=== PATIENT | male | born 1955 | race Caucasian/White ===

== ENCOUNTER 2018-07-01 09:58 | Outpatient (CLI) | payer MEDICAID, SELFPAY ==
[2018-07-01 13:07] LABS: ALT 35 U/L (12-78); AST 23 U/L (15-37); Albumin 3.9 g/dL (3.4-5.0); Alkaline Phosphatase 80 U/L (46-116); Anion Gap 10.6 mmol/L (3-11); BUN 19 mg/dL (7-18); Bilirubin, Total 0.2 mg/dL (0.2-1.0); CO2 24.4 mmol/L (21.0-32.0); CREATININE 1.24 mg/dL (0.70-1.30); Calcium 8.6 mg/dL (8.5-10.1); Chloride 105 mmol/L (98-107); Estimated GFR 59.47 (mL/min/1.73m2); Glucose 121 mg/dL (70-100); Potassium 4.6 mmol/L (3.5-5.1); Sodium 140 mmol/L (136-145); Total Protein 6.8 g/dL (6.4-8.2); Uric Acid 6.5 mg/dL (3.5-7.2)
[2018-07-01 13:25] LABS: COMMENT (LAB VIEW ONLY) 161.15 mg/dL
[2018-07-01 14:11] LABS: Hemoglobin A1C 6.5 % (4.5-6.2)
== END 2018-07-01 10:18 ==
PROVIDERS: PCP Family Medicine; Visit Provider Family Medicine
DX: E11.9 Type 2 diabetes mellitus without complications (principal); M25.50 Pain in unspecified joint
CPT/HCPCS: 36415; 80053; 82043; 82570; 83036; 84550

== ENCOUNTER 2018-12-30 10:17 | Outpatient (CLI) | payer MEDICAID, SELFPAY ==
[2018-12-30 12:32] LABS: ALT 43 U/L (12-78); AST 37 U/L (15-37); Albumin 4.3 g/dL (3.4-5.0); Alkaline Phosphatase 86 U/L (46-116); Anion Gap 10.3 mmol/L (3-11); BUN 16 mg/dL (7-18); Bilirubin, Total 0.4 mg/dL (0.2-1.0); CO2 26.7 mmol/L (21.0-32.0); CREATININE 1.32 mg/dL (0.70-1.30); Calcium 8.7 mg/dL (8.5-10.1); Chloride 103 mmol/L (98-107); Cholesterol 152 mg/dL (50-200); Estimated GFR 55.14 (mL/min/1.73m2); Glucose 129 mg/dL (70-100); HDL Cholesterol 39 mg/dL (40-60); LDL CHOLESTEROL 89 mg/dL (<100); Potassium 4.8 mmol/L (3.5-5.1); Sodium 140 mmol/L (136-145); Total Protein 7.4 g/dL (6.4-8.2); Triglyceride 116 mg/dL (30-150)
[2018-12-30 12:38] LABS: Hemoglobin A1C 6.4 % (4.5-6.2)
== END 2018-12-30 10:37 ==
PROVIDERS: PCP Family Medicine; Visit Provider Family Medicine
DX: E11.9 Type 2 diabetes mellitus without complications (principal); E79.0 Hyperuricemia without signs of inflammatory arthritis and tophaceous disease
CPT/HCPCS: 36415; 80053; 80061; 83721; 83036; 84550

== ENCOUNTER 2019-07-05 11:45 | Outpatient (CLI) | payer MEDICAID, SELFPAY ==
[2019-07-05 13:36] LABS: Anion Gap 11.3 mmol/L (3-11); BUN 13 mg/dL (7-18); CO2 24.7 mmol/L (21.0-32.0); CREATININE 1.27 mg/dL (0.70-1.30); Chloride 103 mmol/L (98-107); Estimated GFR 57.65 (mL/min/1.73m2); Glucose 127 mg/dL (70-100); Potassium 4.9 mmol/L (3.5-5.1); Sodium 139 mmol/L (136-145); Uric Acid 5.3 mg/dL (3.5-7.2)
[2019-07-05 13:40] LABS: COMMENT (LAB VIEW ONLY) 194.45 mg/dL; Microalb ug/mg Crea 10.2 ug/mg Cr
[2019-07-05 14:40] LABS: Hemoglobin A1C 6.3 % (4.5-6.2)
== END 2019-07-05 12:05 ==
PROVIDERS: PCP Family Medicine; Visit Provider Family Medicine
DX: E11.9 Type 2 diabetes mellitus without complications (principal); M10.9 Gout, unspecified
CPT/HCPCS: 36415; 80048; 82043; 82570; 83036; 84550

== ENCOUNTER 2020-12-20 16:49 | Inpatient (IN) | payer MEDICAID, SELFPAY ==
[2020-12-20] VITALS (35 sets, daily range): BP systolic 126–175; BP diastolic 64–87; PULSE 66–81; RESP 10–29; TEMP 36.1–37.1; O2SAT 90–96
--- NOTE | 2020-12-20 17:11 | ED.GENADUL_ITS ---
Discharge Plan Discharge Details Chief Complaint: SOB Admit Date/Time: 12/20/20 20:54 Admit Provider: Jordan Borrego Attending Provider: Jordan Borrego Primary Care Provider: Valeri Gonzalez ED Provider: Sayra Salas Medical Decision Making Patient is a pleasant 65-year-old male presenting today with chief complaint of shortness of breath. Patient was diagnosed with Covid on 12/06/2020 after being exposed to a known positive friend. He states that he initially he was having a cough and sore throat. States sore throat subsided. However, over the past 3 days has become increasingly short of breath. States that he does experience cough with exertion. Shortness of breath is worsened with exertion. Denies any chest pain. Denies any GI upset. No fevers. Patient is not a smoker. No known pulmonary disease. On exam, paitent appears nontoxic. O2 at 87% after ambulation. Was able to get up to 90% when at rest. He has crackles in the right upper lobe. He does not appear to be in any respiratory distress. Normal cardiac exam. No LE edema, no calf tenderness. At this time, concerned for worsening COVID, now requiring 2L NC O2. Also concidered PE as source of worsening symptoms. Will obtain labs and imaging. Patient will be given 6mg IV dexamethasone. jWill hold off on further interven tion given how late his presentation is in his COVID course. CXR reviewed by radiologist: FINDINGS: Lungs: There are hazy peripheral ground-glass opacities bilaterally. Pulmonary lauren: Unremarkable contours. Pleural spaces: No pleural effusion. No pneumothorax. Heart/Mediastinum: Unremarkable contours. No cardiomegaly. Vasculature: Aorta is mildly tortuous. Bones/joints: Unremarkable. Intraperitoneal space: Visualized upper abdomen is unremarkable. IMPRESSION: Peripheral ground-glass opacities consistent patient's history of COVID-19. Labs reviewed. No leukocytosis, stable H&H. Ferritin 618, CRP 9.11. Troponin WNL. D-dimer elevated at 1218, will obtain CT for PE protocol. FINDINGS: Pulmonary arteries: No filling defect in the pulmonary arterial tree. Aorta: There is no aortic aneurysm or dissection. Lungs: There is significant bilateral multilobar regions of relatively peripheral ground-glass disease with underlying interlobular septal thickening (crazy paving) sign. There is no significant consolidative component. The central airways are patent. Pleural spaces: No pneumothorax. No pleural effusion. Heart: No pericardial effusion. Lymph nodes: There are mildly enlarged paratracheal and prevascular nodes which may be reactive in origin. No hilar or axillary adenopathy Liver: There is diffuse fatty infiltration liver. Bones/joints: No significant bony or joint space abnormality. Soft tissues: Extrathoracic soft tissues are unremarkable. IMPRESSION: 1. Extensive ground-glass disease consistent with patient's history of COVID-19. 2. No PE. Discussed these findings with tehpatient. Plan for admission for worsening COVID requiring O2 at this time. Discussed case with Dr. Borrego who agrees to admission. All of the patients questions and concerns were addressed, he is ron greement with this plan. Spoke with patient's brother over the phone. HPI General Mode of arrival: ambulatory . Date/Time Provider Initiated Documentation: 12/20/20 17:11 . Limitations to Documentation: no limitations . Information obtained by: patient and RN notes reviewed . History of Present Illness 65 year old M presents to the emergency department with the chief complaint of shortness of breath, COVID +, described as moderate, Quality is described as other (patient denies any pain), Patient started experiencing this day(s) (2-3) and it has been constant. Immobilization improves symptom(s), Movement worsens symptoms . Patient notes cough, fever/chills (chills) and shortness of breath; denies chest pain, headaches, nausea/vomiting, rash, syncope and weakness. Patient did receive the following treatments prior to arrival, none Related Data Home Medications Medication Instructions Recorded Confirmed indomethacin 50 mg capsule 50 mg PO BID PRN #25 cap 07/03/18 11/03/19 melatonin 5 mg tablet 5 mg PO HS #90 tab 07/08/19 11/03/19 doxylamine succinate 25 mg tablet 25 mg PO QHS PRN #30 tab 07/18/20 metformin 500 mg tablet 500 mg PO BID #180 tab-cap 08/23/20 12/20/20 rosuvastatin 10 mg tablet 10 mg PO DAILY #90 tab-cap 08/23/20 12/20/20 hydroxyzine HCl 25 mg tablet 25 mg PO QHS #30 tab 12/15/20 03/31/21 buspirone 15 mg tablet 15 - 30 mg PO BID #270 tab 10/04/20 12/20/20 paroxetine HCl 40 mg tablet 40 mg PO BID #180 tab-cap 10/09/20 12/20/20 risperidone 0.5 mg tablet 0.5 mg PO QHS #90 tab 10/09/20 12/20/20 Previous Rx's Medication Instructions Recorded indomethacin 50 mg capsule 50 mg PO BID PRN #25 cap 07/03/18 melatonin 5 mg tablet 5 mg PO HS #90 tab 07/08/19 doxylamine succinate 25 mg tablet 25 mg PO QHS PRN #30 tab 07/18/20 metformin 500 mg tablet 500 mg PO BID #180 tab-cap 08/23/20 rosuvastatin 10 mg tablet 10 mg PO DAILY #90 tab-cap 08/23/20 hydroxyzine HCl 25 mg tablet 25 mg PO QHS #30 tab 09/05/20 buspirone 15 mg tablet 15 - 30 mg PO BID #270 tab 10/04/20 paroxetine HCl 40 mg tablet 40 mg PO BID #180 tab-cap 10/09/20 risperidone 0.5 mg tablet 0.5 mg PO QHS #90 tab 10/09/20 Allergies Allergy/AdvReac Type Severity Reaction Status Date / Time No Known Allergies Allergy Verified 12/20/20 17:10 General Stated Complaint: SOB ROMMEL: 2 Review of Systems Constitutional Constitutional: Reports as per HPI, Denies chills, Denies fever(s), Denies headache(s), Denies lethargy and Denies poor appetite Eyes Eyes: Denies change in vision ENT Ears, Nose, Mouth, and Throat: Denies dysphagia, Denies dizziness, Denies headache(s), Denies sore throat and Reports other (change in taste/smell) Cardiovascular Cardiovascular: Reports as per HPI, Denies chest pain, Denies chest pain at r est, Denies chest pain with activity, Denies leg edema, Denies lightheadedness, Denies radiating jaw, neck or arm pain, Reports dyspnea and Reports dyspnea on exertion Respiratory Respiratory: Reports as per HPI, Denies chest congestion, Denies cough, Denies pain on inspiration, Denies pain with cough, Reports dyspnea, Reports dyspnea on exertion and Denies wheezing Gastrointestinal Gastrointestinal: Reports as per HPI, Denies abdominal pain, Denies dysphagia, Denies diarrhea, Denies nausea and Denies vomiting Genitourinary Genitourinary: Denies system reviewed and no additional complaints, except as documented (denies change in urinary habits) Musculoskeletal Musculoskeletal: Reports as per HPI and Denies back pain Integumentary/Breasts Skin/Breast: Reports as per HPI and Denies rash Neurologic Neurologic: Reports as per HPI, Denies dizziness and Denies headache(s) Allergic/Immunologic Allergic/Immunologic: Denies wheezing [facility] Medical History Gout Family History (Updated 07/06/19 @ 10:52 by Arsh Rodrigues) Mother , age 73? Essential hypertension Diabetes Heart disease Hyperlipidemia Father , age 55? Melanoma Brother Hyperlipidemia Diabetes Maternal Grandfather No problems noted. Maternal Grandmother No problems noted. Paternal Grandmother No problems noted. Sister Diabetes Hyperlipidemia Paternal Grandfather No problems noted. Social History Smoking/Tobacco Use Status: Never Smoking risk assessment performed?: Yes Alcohol Intake: current Alcohol Intake frequency: a few times a week Alcohol type: beer Drug use: Never Substance use type: does not use Caregiver/Support person: No Household members: none Housing: house Communication Needs: None Do you need help understanding health information?: Never Pets and animals: Yes Pets and animals: dog(s) Sexually active: Yes Do you think of yourself as: straight/heterosexual Current gender identity: male What is your relationship status?: never How often do you talk on the phone with friends or family?: three or more times per week How often do you get together with friends or relatives?: three or more times per week How often do you attend oriental orthodox or buddhism services?: 1-3 times per year Do you belong to any clubs or organized social groups?: no Panel score (0-1 are the most socially isolated patients): 1 What type of physical activity do you participate in: other Details: garage work Duration: > 90 minutes/day Frequency: 5-6 times per week Becka/Bahai: Yarsanism Special becka needs: No Seatbelt use: always Helmet use: Yes Helmet use: always Drive intox or ride w/intox 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 Do you feel safe at home: Yes Do you feel safe in your relationship?: Yes Exam Const General: cooperative, healthy appearing, comfortable, no acute distress and well developed Nutritional Appearance: average body habitus and well nourished Orientation: alert, awake and oriented x3 [facility] Head: normal to inspection Ears: hearing grossly normal bilaterally Mouth: moist mucous membranes Chest Chest: normal inspection of the chest, normal palpation of entire chest wall and no crepitus Resp Effort & Inspection: normal respiratory effort, able to speak in complete sentences and no respiratory distress Auscultation: crackles on the right in the upper lung reveles, no rales, no rhonchi and no wheezes Cardio Rate: regular rate Rhythm: regular rhythm Heart Sounds: S1 normal and S2 normal GI Inspection: normal to inspection, no edema and non-distended Palpation: soft, no hepatosplenomegaly, not firm, no guarding, not rigid and nontender Auscultation: normal bowel sounds Back/Spine/Pelvis Thoracic/Lumbar Spine: thoracic and lumbar spine normal to inspection Skin General skin exam: no rashes or lesions noted Trauma: no lacerations or abrasions Neuro General: patient alert, patient awake and patient oriented x3 Cognition: normal cognition Speech: speech normal Gait: normal gait Extrem General: normal to inspection, capillary refill normal, no pedal edema, no calf tenderness and normal gait Psych Appearance: grossly normal and well kempt Mental Status: mental status grossly normal Speech and Movement: speech and movement normal Course Vital Signs Vital signs: Vital Signs Temperature 36.3 C L 12/20/20 17:06 Pulse 80 12/20/20 17:06 Respiratory Rate 20 12/20/20 17:06 Blood Pressure 175/83 H 12/20/20 17:06 Pulse Oximetry 90 L 12/20/20 17:06 Temperature 36.3 C L 12/20/20 17:06 Temperature Source Skin 12/20/20 17:06 Pulse 80 12/20/20 17:06 Respiratory Rate 20 12/20/20 17:06 Respiratory Effort 12/20/20 17:08 Blood Pressure 175/83 H 12/20/20 17:06 Blood Pressure Position Supine 12/20/20 17:06 Pulse Oximetry 90 L 12/20/20 17:06 Oxygen Delivery Method Room Air 12/20/20 17:06 Oxygen Flow Rate 0 12/20/20 17:06 Pain Level 0 12/20/20 17:06
[2020-12-20] MEDS: Normal Saline Flush 10 ML SYR IVP ×2 (17:25→19:39)
[2020-12-20] MEDS: Dexamethasone 4 MG/ML VIAL 6 MG IVP (17:34)
[2020-12-20 17:36] LABS: Abs Immature Grans 0.04 10^3/uL (0.0-0.06); Absolute Basophil Count 0.01 10^3/uL (0.0-0.2); Absolute Eosinophil Count 0.03 10^3/uL (0.0-0.7); Absolute Monocyte Count 0.36 10^3/uL (0.1-0.8); Absolute Neutrophil Count 5.92 10^3/uL (1.2-6.7); Basophils % 0.1; Eosinophils % 0.4; HCT 39.7 % (40.0-50.0); HGB 13.5 g/dL (13.5-17.5); Immature Grans % 0.6; Lymphocytes % 7.3; MCH 30.5 pg (27.0-33.0); MCV 89.6 fL (80-95); MPV 9.6 fL (8.0-11.0); Monocytes % 5.2; Neutrophils % 86.4; Nucleated RBC 0 %; Platelet Count 264 10^3/uL (130-400); RBC 4.43 10^6/uL (4.36-5.78); RDW 12.4 % (11.8-14.1); WBC 6.86 10^3/uL (4.4-10.8)
[2020-12-20 17:52] LABS: PTT Activated 25.9 sec (21.0-27.5)
[2020-12-20 18:13] LABS: D-Dimer 1218 ng/mlFEU (<500)
--- NOTE | 2020-12-20 18:15 | DI.RAD_ITS ---
EXAM: XR PORTABLE CHEST AP CLINICAL HISTORY: SOB, known COVID +. TECHNIQUE: 2D digital imaging was performed. COMPARISON: No exams were available for comparison FINDINGS: Heart size upper normal mediastinum is not widened. There are patchy bilateral infiltrates. No obvi ous pleural effusions. No pneumothorax. IMPRESSION: Bilateral infiltrates. No pleural effusions. Recommend testing for Covid-19 DATA REPOSITORY: RADIATION DOSE DELIVERED: All CT scans at this facility use at least one of these dose optimization techniques: automated exposure control; mA and/or kV adjustment per patient size (includes targeted e xams where dose is matched to clinical indication); or iterative reconstruction.
--- NOTE | 2020-12-20 18:17 | DI.CT_ITS ---
EXAM: CT CHEST PE CTA CLINICAL HISTORY: SOB, elevated d-dimer, COVID+. TECHNIQUE: Imaging Protocol: CT angiography of the chest was performed using pulmonary embolus arturo col. Multi planar reconstructions were performed. CONTRAST MATERIAL: Intravenous: Omnipaque 350 Contrast volume: 100 cc COMPARISON: No exams were available for comparison FINDINGS: CHEST: PULMONARY ARTERIES: There are no intraluminal filling defects to suggest acute pulmonary emboli. LUNGS: There are extensive bilateral ground-glass infiltrates consistent with the apparent known diag nosis of Covid-19.. There are no pleural effusions. MEDIASTINUM: There is no hilar nor mediastinal adenopathy. Visualized thyroid unremarkable. CARDIAC: Heart size upper normal. There is no pericardial effusioncaliber of the thoracic aorta is w ithin normal limits. There is no evidence of shift of the interventricular septum. PARTIALLY VISUALIZED UPPERMOST ABDOMEN: Hepatic steatosis and hepatomegaly noted. OSSEOUS: No significant osseous lesions.. IMPRESSION: 1. Extensive bilateral ground-glass infiltrates, consistent with apparent known history of Covid-19.N o pleural effusions. No prominent intrathoracic adenopathy. 2. No evidence of pulmonary embolus. 3. Hepatic steatosis incidentally noted. RADIATION DOSE DELIVERED: LINK-TO-SR Total DLP DATA REPOSITORY: All CT scans at this facility are submitted to the National Radiology Data Registry (NRDR) Dose Index Registry (DIR) with the [employer] (ACR). RADIATION OPTIMIZATION: All CT scans at this facility use at least one of these dose optimization te chniques: automated exposure control; mA and/or kV adjustment per patient size (includes targeted exa ms where dose is matched to clinical indication); or iterative reconstruction.
--- NOTE | 2020-12-20 18:26 | DI.VRAD_ITS ---
PROCEDURE INFORMATION: Exam: XR Chest Exam date and time: 12/20/2020 5:14 PM Age: 65 years old Clinical indication: Other: SOB, known covid+ TECHNIQUE: Imaging protocol: XR of the chest Views: 1 view. Total images: 1 COMPARISON: No relevant prior studies available. FINDINGS: Lungs: There are hazy peripheral ground-glass opacities bilaterally. Pulmonary lauren: Unremarkable contours. Pleural spaces: No pleural effusion. No pneumothorax. Heart/Mediastinum: Unremarkable contours. No cardiomegaly. Vasculature: Aorta is mildly tortuous. Bones/joints: Unremarkable. Intraperitoneal space: Visualized upper abdomen is unremarkable. IMPRESSION: Peripheral ground-glass opacities consistent patient's history of COVID-19. Dictated and Authenticated by: Angel Alonzo MD. Ordering:SARAH Colbert MD
[2020-12-20] MEDS: Lactated Ringers 500 ML IV (18:42)
[2020-12-20 18:51] LABS: ALT 30 U/L (16-63); AST 36 U/L (15-37); Albumin 3.2 g/dL (3.4-5.0); Alkaline Phosphatase 113 U/L (46-116); BUN 19 mg/dL (7-18); Bilirubin, Total 0.5 mg/dL (0.2-1.0); C-Reactive Protein 9.11 mg/dL (0.0-0.3); CREATININE 1.3 mg/dL (0.70-1.30); Calcium 8.4 mg/dL (8.5-10.1); Chloride 100 mmol/L (98-107); Creatine Kinase 202 U/L (39-308); Estimated GFR 55.75 (mL/min/1.73m2); Glucose 127 mg/dL (74-106); Magnesium 2.2 mg/dL (1.8-2.4); NT-proBNP 38 pg/mL (<300); Potassium 3.9 mmol/L (3.5-5.1); Sodium 136 mmol/L (136-145); Total Protein 7.7 g/dL (6.4-8.2); Troponin I < 0.05 ng/mL (<0.06)
[2020-12-20 19:14] LABS: Ferritin 618 ng/mL (26-388)
[2020-12-20] MEDS: Omnipaque 350 MG/ML 100 ML BTL IJ (19:37)
[2020-12-20] MEDS: Normal Saline - Diluent 50 ML VIAL IV (19:39)
--- NOTE | 2020-12-20 21:00 | DI.VRAD_ITS ---
PROCEDURE INFORMATION: Exam: CT Angiography Chest With Contrast Exam date and time: 12/20/2020 7:40 PM Age: 65 years old Clinical indication: Other: SOB, elevated d-dimer, covid+ TECHNIQUE: Imaging protocol: Computed tomographic angiography of the chest with contrast. 3D rendering (Not supervised by radiologist): MIP and/or 3D reconstructed images were created by the technologist. Total images: 1659 Radiation optimization: All CT scans at this facility use at least one of these dose optimization techniques: automated exposure control; mA and/or kV adjustment per patient size (includes targeted exams where dose is matched to clinical indication); or iterative reconstruction. Contrast material: OMNIPAQUE 350; Contrast volume: 100 ml; Contrast route: INTRAVENOUS (IV); COMPARISON: CR XR PORTABLE CHEST AP 12/20/2020 6:11 PM FINDINGS: Pulmonary arteries: No filling defect in the pulmonary arterial tree. Aorta: There is no aortic aneurysm or dissection. Lungs: There is significant bilateral multilobar regions of relatively peripheral ground-glass disease with underlying interlobular septal thickening (crazy paving) sign. There is no significant consolidative component. The central airways are patent. Pleural spaces: No pneumothorax. No pleural effusion. Heart: No pericardial effusion. Lymph nodes: There are mildly enlarged paratracheal and prevascular nodes which may be reactive in origin. No hilar or axillary adenopathy. Liver: There is diffuse fatty infiltration liver. Bones/joints: No significant bony or joint space abnormality. Soft tissues: Extrathoracic soft tissues are unremarkable. IMPRESSION: 1. Extensive ground-glass disease consistent with patient's history of COVID-19. 2. No PE. Dictated and Authenticated by: Angel Alonzo MD. Ordering:SARAH Colbert MD
--- NOTE | 2020-12-20 21:00 | NUR.NOTE ---
Assumed care of pt. report from gabrielle. awaiting bed placement
--- NOTE | 2020-12-20 21:09 | HPE_ITS ---
Date of service: 12/20/20 Time of Service: 21:09 Assessment and Plan Assessment and plan (1) Diabetes mellitus: Status: Acute Assessment and plan: Hold home metformin; has received IV contrast for CTA chest. Monitor glucose ACHS. SS insulin correction dosage. (2) Hyperlipidemia: Status: Acute Assessment and plan: Cont home statin. (3) Overweight: Status: Acute Assessment and plan: Places him at higher risk for COVID complications. (4) Obsessive compulsive disorder: Status: Acute Assessment and plan: Cont Buspar and Risperidol. (5) COVID-19: Status: Acute Assessment and plan: Dxd on 12/06/2020 with 3 days of worsening symptoms. + PNA on CT consistent with COVID-19. Dexamethasone 6 mg po daily. Remdesivir 200 mg IV now and then 100mg daily. Monitor O2 saturations. COVID-19 precautions. AC with SQ heparin. History of Present Illness History of Present Illness Chief Complaint: Shortness of breath Narrative: This is a 65 yo male with a h/o Covid respiratory infection diagnosed on 12/06/2020, OCD, HLD, DM2, overweight. He endorsed his Covid exposure was to a known positive friend. His initial symptomology was a cough and sore throat. Over the 3 days prior to admission he endorses increased shortness of breath; worsened with exertion. Cough with exertion. No F/C, CP/palpitations, calf pain. No N/V/abd pain. His RA O2 saturations were 94-95%. CT chest was negative for pulmonary embolism, positive for bilateral multilobar regions of relatively peripheral ground-glass disease with underlying interlobular septal thickening. CBC negative other than a lymphopenia. Lytes normal. BUN 19, creatinine 1.3. Glucose 127. LFT's normal. Ferritin high at 618. CRP high at 9.11. BNP normal. UA negtaive. Dexamethasone 6mg po daily initiated in the ED. Review of Systems All systems reviewed & are unremarkable except as noted in HPI and below PFSH Medical History (Updated 12/20/20 @ 21:20 by Jordan Borrego MD) Gout Family History (Updated 07/06/19 @ 10:52 by Arsh Rodrigues) Mother , age 73? Essential hypertension Diabetes Heart disease Hyperlipidemia Father , age 55? Melanoma Brother Hyperlipidemia Diabetes Maternal Grandfather No problems noted. Maternal Grandmother No problems noted. Paternal Grandmother No problems noted. Sister Diabetes Hyperlipidemia Paternal Grandfather No problems noted. Social History (Updated 07/06/19 @ 10:50 by Arsh Rodrigues) Smoking/Tobacco Use Status: Never Smoking risk assessment performed?: Yes Alcohol Intake: current Alcohol Intake frequency: a few times a week Alcohol type: beer Drug use: Never Substance use type: does not use Caregiver/Support person: No Household members: none Housing: house Communication Needs: None Do you need help understanding health information?: Never Pets and animals: Yes Pets and animals: dog(s) Sexually active: Yes Do you think of yourself as: straight/heterosexual Current gender identity: male What is your relationship status?: never How often do you talk on the phone with friends or family?: three or more times per week How often do you get together with friends or relatives?: three or more times per week How often do you attend christian or bahai services?: 1-3 times per year Do you belong to any clubs or organized social groups?: no Panel score (0-1 are the most socially isolated patients): 1 What type of physical activity do you participate in: other Details: garage work Duration: > 90 minutes/day Frequency: 5-6 times per week Becka/Worship: Yarsanism Special becka needs: No Seatbelt use: always Helmet use: Yes Helmet use: always Drive intox or ride w/intox 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 Do you feel safe at home: Yes Do you feel safe in your relationship?: Yes Meds Home Medications and Allergies Allergies Allergy/AdvReac Type Severity Reaction Status Date / Time No Known Allergies Allergy Verified 12/20/20 17:10 Home Medications Medication Instructions Recorded Confirmed Type indomethacin 50 mg capsule 50 mg PO BID PRN #25 cap 07/03/18 11/03/19 Rx melatonin 5 mg tablet 5 mg PO HS #90 tab 07/08/19 11/03/19 Rx doxylamine succinate 25 mg tablet 25 mg PO QHS PRN #30 tab 07/18/20 Rx metformin 500 mg tablet 500 mg PO BID #180 tab-cap 08/23/20 12/20/20 Rx rosuvastatin 10 mg tablet 10 mg PO DAILY #90 tab-cap 08/23/20 12/20/20 Rx hydroxyzine HCl 25 mg tablet 25 mg PO QHS #30 tab 09/05/20 12/20/20 Rx buspirone 15 mg tablet 15 - 30 mg PO BID #270 tab 10/04/20 12/20/20 Rx paroxetine HCl 40 mg tablet 40 mg PO BID #180 tab-cap 10/09/20 12/20/20 Rx risperidone 0.5 mg tablet 0.5 mg PO QHS #90 tab 10/09/20 12/20/20 Rx Exam Const General: cooperative and no acute distress Nutritional Appearance: overweight Orientation: alert and oriented x3 Eyes Sclera: sclerae normal Pupils: PERRL Resp Effort & Inspection: normal respiratory effort and able to speak in complete sentences Auscultation: clear to auscultation bilaterally Cardio Rate: regular rate Rhythm: regular rhythm Heart Sounds: S1 normal and S2 normal GI Palpation: soft and nontender Skin General skin exam: no rashes or lesions noted Extrem General: no pedal edema and no calf tenderness Psych Appearance: grossly normal Speech and Movement: speech and movement normal Affect: normal affect Results Labs Result diagrams: 12/20/20 17:20 12/20/20 18:20 Labs: Laboratory Results - last 24 hr 12/20/20 12/20/20 12/20/20 17:20 17:20 18:20 WBC 6.86 RBC 4.43 Hgb 13.5 Hct 39.7 L MCV 89.6 MCH 30.5 MCHC 34.0 RDW 12.4 Plt Count 264 MPV 9.6 Immature Gran % 0.6 Neutrophils % 86.4 Lymphocytes % 7.3 Monocytes % 5.2 Eosinophils % 0.4 Basophils % 0.1 Nucleated RBC % 0 Absolute Neutrophils 5.92 Absolute Lymphocytes 0.50 L Absolute Monocytes 0.36 Absolute Eosinophils 0.03 Absolute Basophils 0.01 PT 10.0 INR 1.0 APTT 25.9 D-Dimer 1218 H Sodium 136 Potassium 3.9 Chloride 100 Carbon Dioxide 23.0 Anion Gap 13.0 H BUN 19 H Creatinine 1.3 Estimated GFR/1.73 m2 55.75 Glucose 127 H Calcium 8.4 L Magnesium 2.2 Ferritin 618 H Total Bilirubin 0.5 AST 36 ALT 30 Alkaline Phosphatase 113 Creatine Kinase 202 Troponin I < 0.05 C-Reactive Protein 9.11 H NT-Pro-B Natriuret Pep 38 Total Protein 7.7 Albumin 3.2 L Last Vital Signs Temp 36.1 C L 12/20/20 20:33 Pulse 75 12/20/20 20:32 Resp 29 H 12/20/20 20:40 BP 150/78 H 12/20/20 20:32 Pulse Ox 94 12/20/20 20:40 COVID-19 Screening Have you, or household traveled for leisure in last 14 days?: No Had IN PERSON contact w/suspected or confirmed C-19 person: No
[2020-12-20] MEDS: Acetaminophen 500 MG TAB 1000 MG PO (21:37)
--- NOTE | 2020-12-20 21:42 | NUR.NOTE ---
Tylenol a/o. lying on right side. aware he will be in ED until 2611-1412. Dr Borrego in to eval.
[2020-12-20 21:50] LABS: Hemoglobin A1C 7.4 % (<5.7)
[2020-12-20 22:48] LABS: COVID-19 PCR POSITIVE (Negative)
[2020-12-21] VITALS (35 sets, daily range): BP systolic 102–154; BP diastolic 59–95; PULSE 57–96; RESP 11–29; TEMP 35.6–35.8; O2SAT 87–96
[2020-12-21] MEDS: risperiDONE 0.5 MG TAB PO ×2 (00:12→20:50)
[2020-12-21] MEDS: Melatonin 3 MG TAB 6 MG PO (00:13)
[2020-12-21] MEDS: hydrOXYzine HCL 25 MG TAB PO ×2 (00:13→20:50)
[2020-12-21] MEDS: Heparin 5,000 UNITS/ML VIAL 5000 UNITS SC (06:02)
[2020-12-21 07:26] LABS: Abs Immature Grans 0.03 10^3/uL (0.0-0.06); HCT 39.5 % (40.0-50.0); HGB 13.4 g/dL (13.5-17.5); MCH 30.3 pg (27.0-33.0); MCHC 33.9 % (32.0-36.0); MCV 89.4 fL (80-95); MPV 9.5 fL (8.0-11.0); Nucleated RBC 0 %; Platelet Count 298 10^3/uL (130-400); RBC 4.42 10^6/uL (4.36-5.78); RDW 12.2 % (11.8-14.1); RDW-SD 40.7 fL
[2020-12-21 07:40] LABS: ALT 29 U/L (16-63); AST 30 U/L (15-37); Albumin 3.1 g/dL (3.4-5.0); Alkaline Phosphatase 112 U/L (46-116); Anion Gap 10.6 mmol/L (3-11); BUN 18 mg/dL (7-18); Bilirubin, Total 0.4 mg/dL (0.2-1.0); CO2 25.4 mmol/L (21.0-32.0); CREATININE 1.3 mg/dL (0.70-1.30); Calcium 8.8 mg/dL (8.5-10.1); Chloride 101 mmol/L (98-107); Estimated GFR 55.75 (mL/min/1.73m2); Glucose 154 mg/dL (74-106); Potassium 4.5 mmol/L (3.5-5.1); Sodium 137 mmol/L (136-145); Total Protein 7.7 g/dL (6.4-8.2)
[2020-12-21 07:53] LABS: Absolute Lymphocyte Count 0.58 10^3/uL (1.2-3.4); Absolute Monocyte Count 0.05 10^3/uL (0.1-0.8); Absolute Neutrophil Count 4.66 10^3/uL (1.2-6.7); Atypical Lymphocytes % 7; Bands % 1; Diff Comment Manual Differential; RBC Morphology Normal
--- NOTE | 2020-12-21 08:23 | PDOC.CMIN ---
- If Service Date Differs Date of service: 12/21/20 Time of Service: 08:23 Care Management Initial Assess REASON FOR HOSPITALIZATION:: COVID, Hypoxia PAST MEDICAL HISTORY/PAST SURGICAL HISTORY:: Covid-19, OCD, overweight, hyperlipidemia, DM PREVIOUS FUNCTIONAL STATUS/SOCIAL/FAMILY SUPPORTS:: Shahana resides in [place]. He has family locally and is independent at baseline. CURRENT FUNCTIONAL STATUS:: Shahana is in the ICU being treated for COVID. Plan per MD: Continue Decadron 6 mg IV daily for 10 days or until hypoxemia resolves and patient is discharged. Continue Remdesivir. Begin zinc, vitamin D, vitamin C, Pepcid. Will prescribe incentive spirometer and Acapella device. Because of the purulent sputum will order Rocephin and doxycycline. Switch heparin to enoxaparin 30 mg subcutaneously every 12 hours. Encourage proning whenever in bed. Encourage him to be up in a chair and ambulating as much as tolerated. Continuous pulse oximetry to monitor for any desaturation. As long as he is on low flow nasal cannula he can remain on medical/surgical floor status but if his hypoxemia worsens he will be made in ICU patient. ADVANCE DIRECTIVES:: None on file at [facility]. Has patient been provided with info about the portal/API?: Yes Did the patient sign up for the portal?: Yes (Previously ) CODE STATUS:: Full Code INSURANCE COVERAGE / FINANCIAL ISSUES:: [employer] CURRENT HOME/COMMUNITY SERVICES/EQUIPMENT:: No current services or equipment. PRIMARY CARE PHYSICIAN:: Valeri Gonzalez POTENTIAL DISCHARGE NEEDS:: Follow up appointment with PCP. PATIENT/FAMILY EDUCATION NEEDS:: Review discharge instructions, discuss Ask Me Three. ANTICIPATED BARRIERS TO DISCHARGE:: None identified at this time. TRANSPORTATION:: Via private vehicle with his brotherMichael. PLAN:: Shahana continues to be monitored in the ICU at this time. Anticipate when medically cleared he will return home with no new services and follow up with his PCP. He will transport via private vehicle with his brother, Michael.
[2020-12-21] MEDS: Normal Saline Flush 10 ML SYR IVP (08:24)
[2020-12-21] MEDS: Rosuvastatin 10 MG TAB PO (08:25)
[2020-12-21] MEDS: PARoxetine 20 MG TAB 40 MG PO ×2 (08:25→20:50)
[2020-12-21] MEDS: busPIRone 15 MG TAB 30 MG PO ×2 (08:25→21:11)
[2020-12-21] MEDS: Insulin Aspart 300 UNITS/3 ML PEN SC ×4 (08:26→22:24)
[2020-12-21] MEDS: REMDESIVIR 200 MG in Normal Saline 250 ML 250 MG IVPB (09:42)
[2020-12-21] MEDS: Normal Saline 500 ML 30 ML IV (09:44)
[2020-12-21] MEDS: Dexamethasone 4 MG/ML VIAL 6 MG IVP (09:46)
[2020-12-21 10:28] LABS: Procalcitonin 0.1 ng/mL
--- NOTE | 2020-12-21 11:03 | PGE_ITS ---
Date of Service Date of service: 12/21/20 Time of Service: 11:03 Assessment and Plan Assessment and plan (1) Pneumonia due to severe acute respiratory syndrome coronavirus 2 (SARS-CoV-2): Status: Acute Assessment and plan: Continue Decadron 6 mg IV daily for 10 days or until hypoxemia resolves and patient is discharged. Continue Remdesivir. Begin zinc, vitamin D, vitamin C, Pepcid. Will prescribe incentive spirometer and Acapella device. Because of the purulent sputum will order Rocephin and doxycycline. Switch heparin to enoxaparin 30 mg subcutaneously every 12 hours. Encourage proning whenever in bed. Encourage him to be up in a chair and ambulating as much as tolerated. Continuous pulse oximetry to monitor for any desaturation. As long as he is on low flow nasal cannula he can remain on medical/surgical floor status but if his hypoxemia worsens he will be made in ICU patient. (2) Diabetes mellitus: Status: Acute Assessment and plan: Hold home metformin; has received IV contrast for CTA chest. Monitor glucose ACHS. SS insulin correction dosage. (3) Hyperlipidemia: Status: Acute Assessment and plan: Hold Crestor in favor of high-dose atorvastatin. (4) Obsessive compulsive disorder: Status: Acute Assessment and plan: Cont Buspar and Risperidol. (5) Overweight: Status: Acute Assessment and plan: Places him at higher risk for COVID complications. In spite of his obesity he seems to be tolerating assuming the prone position. Subjective Subjective Interval history since last seen: 65-year-old male with history of type 2 diabetes mellitus, hyperlipidemia who is a non-smoker who was exposed to COVID-19 from a friend to his from [facility] and the patient was diagnosed on December 06, 2020 and had been in quarantine for the last 3 to 4 days prior to admission had increasing dyspnea along with a cough that was minimally productive of yellowish sputum. No associated fever or rigors. He has had loss of sense of taste and smell. His original symptoms were cough and sore throat. Denies any nausea or vomiting or abdominal pain. On presentation the emergency department his room air oxygen saturations were 94 to 95% and CT scan of the chest was negative for pulmonary embolism but was positive for bilateral multi lobar peripheral groundglass changes and interlobular septal thickening. CBC showed a lymphopenia. Electrolytes were normal and LFTs were normal but his ferritin was high at 618 and CRP was high at 9.11. He was admitted to the medical/surgical floor but was placed in the ICU as an overflow patient. He was ordered remdesivir but did not receive his remdesivir last night. He was started on Decadron and did receive 10 mg IV last night in the ER and is now on 6 mg daily. Over the course of his admission since last night he has developed hypoxemia and is required supplemental oxygen up to 4 L/min per nasal cannula. Patient is cooperative with performing proning maneuvers to enhance lung recruitment. I have ordered incentive spirometer and Acapella device. He will be started on ceftriaxone and doxycycline in addition to vitamin C, vitamin D, zinc. He was started on unfractionated heparin 5000 units subcu every 8 hours. I am going to switch this over to enoxaparin 30 mg subcu every 12 hours. His D- dimer on admission was elevated at 1218 ng/mL. He currently is tolerating assuming the prone position. I encouraged him that when he is not in bed that he could be up out of bed walking around the room or sitting up in the chair but whenever he is in bed he should try proning for at least half the time that he is in bed. The other times he can try lying on his right side or his left side but should try to avoid lying on his back. His Metformin is currently on hold and we will monitor his blood sugars before meals and at bedtime and cover with insulin sensitive sliding scale NovoLog. Exam Narrative Exam Narrative: Obese male lying in the prone position in no respiratory distress he is alert and oriented person place time circumstance. Exam is limited because of his prone position. I cannot do cardiac exam. Lungs posteriorly are clear to auscultation however auscultation was limited due to the poor quality stethoscope in the room as well as loud noise from the fans from the air exchanger. Objective Last Vital Signs Temp 35.6 C L 12/21/20 10:16 Pulse 65 12/21/20 10:00 Resp 20 12/21/20 10:00 BP 140/81 12/21/20 10:00 Pulse Ox 93 12/21/20 10:14 Laboratory Results - last 24 hr 12/20/20 12/20/20 12/20/20 17:20 17:20 17:20 WBC 6.86 RBC 4.43 Hgb 13.5 Hct 39.7 L MCV 89.6 MCH 30.5 MCHC 34.0 RDW 12.4 Plt Count 264 MPV 9.6 Immature Gran % 0.6 Neutrophils % 86.4 Band Neutrophils % Lymphocytes % 7.3 Atypical Lymphs % Monocytes % 5.2 Eosinophils % 0.4 Basophils % 0.1 Nucleated RBC % 0 Absolute Neutrophils 5.92 Absolute Lymphocytes 0.50 L Absolute Monocytes 0.36 Absolute Eosinophils 0.03 Absolute Basophils 0.01 RBC Morphology PT 10.0 INR 1.0 APTT 25.9 D-Dimer 1218 H Sodium Potassium Chloride Carbon Dioxide Anion Gap BUN Creatinine Estimated GFR/1.73 m2 Glucose Hemoglobin A1c 7.4 H Calcium Magnesium Ferritin Total Bilirubin AST ALT Alkaline Phosphatase Creatine Kinase Troponin I C-Reactive Protein NT-Pro-B Natriuret Pep Total Protein Albumin Procalcitonin COVID-19 Source SARS-CoV-2 (PCR) 12/20/20 12/20/20 12/20/20 18:20 20:11 21:32 WBC RBC Hgb Hct MCV MCH MCHC RDW Plt Count MPV Immature Gran % Neutrophils % Band Neutrophils % Lymphocytes % Atypical Lymphs % Monocytes % Eosinophils % Basophils % Nucleated RBC % Absolute Neutrophils Absolute Lymphocytes Absolute Monocytes Absolute Eosinophils Absolute Basophils RBC Morphology PT INR APTT D-Dimer Sodium 136 Potassium 3.9 Chloride 100 Carbon Dioxide 23.0 Anion Gap 13.0 H BUN 19 H Creatinine 1.3 Estimated GFR/1.73 m2 55.75 Glucose 127 H Hemoglobin A1c Calcium 8.4 L Magnesium 2.2 Ferritin 618 H Total Bilirubin 0.5 AST 36 ALT 30 Alkaline Phosphatase 113 Creatine Kinase 202 Troponin I < 0.05 Cancelled C-Reactive Protein 9.11 H NT-Pro-B Natriuret Pep 38 Total Protein 7.7 Albumin 3.2 L Procalcitonin COVID-19 Source Nasopharyx SARS-CoV-2 (PCR) Positive A* 12/21/20 12/21/20 12/21/20 06:43 06:43 06:43 WBC 5.30 RBC 4.42 Hgb 13.4 L Hct 39.5 L MCV 89.4 MCH 30.3 MCHC 33.9 RDW 12.2 Plt Count 298 MPV 9.5 Immature Gran % 0.0 Neutrophils % 87.0 Band Neutrophils % 1 Lymphocytes % 4.0 Atypical Lymphs % 7 Monocytes % 1.0 Eosinophils % 0.0 Basophils % 0.0 Nucleated RBC % 0 Absolute Neutrophils 4.66 Absolute Lymphocytes 0.58 L Absolute Monocytes 0.05 L Absolute Eosinophils 0.00 Absolute Basophils 0.00 RBC Morphology Normal PT INR APTT D-Dimer Sodium 137 Potassium 4.5 Chloride 101 Carbon Dioxide 25.4 Anion Gap 10.6 BUN 18 Creatinine 1.3 Estimated GFR/1.73 m2 55.75 Glucose 154 H Hemoglobin A1c Calcium 8.8 Magnesium Ferritin Total Bilirubin 0.4 AST 30 ALT 29 Alkaline Phosphatase 112 Creatine Kinase Troponin I C-Reactive Protein NT-Pro-B Natriuret Pep Total Protein 7.7 Albumin 3.1 L Procalcitonin 0.1 COVID-19 Source SARS-CoV-2 (PCR)
[2020-12-21] MEDS: cefTRIAXone 1 GM/50 ML BAG IVPB (12:03)
[2020-12-21] MEDS: Ascorbic Acid 500 MG TAB 1000 MG PO ×2 (12:04→20:49)
[2020-12-21] MEDS: Zinc Sulfate 220 MG TAB PO (12:04)
[2020-12-21] MEDS: Cholecalciferol (Vitamin D3) 1,000 UNIT TAB 2000 UNITS PO (12:04)
[2020-12-21] MEDS: Famotidine 20 MG TAB PO ×2 (12:04→20:49)
--- NOTE | 2020-12-21 12:38 | PHA.REVIEW ---
Pharmacy Admission Review - Admission Clinical Review (Last Reviewed 12/21/20 @ 09:00 by TREMAINE Gayle) Pneumonia due to severe acute respiratory syndrome coronavirus 2 (SARS-CoV-2) (Acute) COVID-19 (Acute) Obsessive compulsive disorder (Acute) Overweight (Acute) Hyperlipidemia (Acute) Diabetes mellitus (Acute 06/03/12) No Known Allergies Allergy (Verified 12/20/20 17:10) Height 5 ft 11 in Weight 107.8 kg - Renal Dosing Renal Dosing: BUN 18 mg/dL (7-18) 12/21/20 06:43 Creatinine 1.3 mg/dL (0.70-1.30) 12/21/20 06:43 Medications needing adjustments: Reviewed (eCrCl 71.6 ml/min, GFR is 55.75 -- orders ok) - Anticoagulation Anticoagulation: Hgb 13.4 g/dL (13.5-17.5) L 12/21/20 06:43 Hct 39.5 % (40.0-50.0) L 12/21/20 06:43 Plt Count 298 10^3/uL (130-400) 12/21/20 06:43 INR 1.0 (0.9-1.1) 12/20/20 17:20 Creatinine 1.3 mg/dL (0.70-1.30) 12/21/20 06:43 DVT Prohphylaxis: Reviewed Medications: Enoxaparin (lower intensity dosing for Group C patients per hospital's covid-19 guideline) - Opiate Usage Evaluate Pain Scale/Pains Meds: N/A Scheduled Bowel Reg ordered if on Opiates?: No - Relevant Labs Sodium 137 mmol/L (136-145) 12/21/20 06:43 Potassium 4.5 mmol/L (3.5-5.1) 12/21/20 06:43 Chloride 101 mmol/L (98-107) 12/21/20 06:43 Magnesium 2.2 mg/dL (1.8-2.4) 12/20/20 18:20 C-Reactive Protein 9.11 mg/dL (0.0-0.3) H 12/20/20 18:20 Electrolytes, C-Reactive P, ESR: Reviewed - DM Control DM Control: Glucose 154 mg/dL (74-106) H 12/21/20 06:43 Hemoglobin A1c 7.4 % (<5.7) H 12/20/20 17:20 Finger Stick Blood Glucose 149 Finger Stick Blood Glucose 149 Finger Stick Blood Glucose 149 Insulin Dosing: Reviewed (ASPART PER ss) - Heart Failure/IN Heart Failure/IN: Troponin I Cancelled 12/20/20 20:11 NT-Pro-B Natriuret Pep 38 pg/mL (<300) 12/20/20 18:20 EF%, ZEYAD's, B-Blockers, Diuretics: Reviewed - BP Control BP Control: Blood Pressure 140/81 Blood Pressure 143/95 Blood Pressure 102/77 Blood Pressure 121/80 Blood Pressure 129/68 Blood Pressure 117/59 Blood Pressure 127/83 Blood Pressure 110/80 Blood Pressure 133/84 Blood Pressure 125/75 If elevated: Reviewed - Qtc Review If Elevated: N/A - IV to PO Switch IV Medications: Reviewed - Home Meds Home Med List reviewed: Reviewed Relevent Home Meds Not ordered & why?: all ordered -- aspart in place of metformin, high intensity atorvastatin in place of crestor - Current meds Current Medication Order Review: Reviewed (changed buspirone to reflect home dose; remdesivir was not started last night -- retimed dose for this am) - Comments Comments/Follow Ups: remdesivir started 12/21/20; watch d-dimer -- pt started on lower intensity enoxaparin (ddimer <2.5)
[2020-12-21] MEDS: Enoxaparin 30 MG/0.3 ML SYR SC (14:06)
[2020-12-21] MEDS: DOXYCYCLINE 100 MG in Normal Saline 100 ML IVPB (14:06)
[2020-12-21] MEDS: Insulin NPH-Human 300 UNITS/3 ML PEN 12 UNIT SC (17:56)
[2020-12-21] MEDS: Atorvastatin 40 MG TAB PO (20:50)
[2020-12-22] VITALS (17 sets, daily range): BP systolic 135–159; BP diastolic 81–98; PULSE 59–85; RESP 18–20; TEMP 34–36.4; O2SAT 90–97
[2020-12-22] MEDS: Enoxaparin 30 MG/0.3 ML SYR SC ×2 (01:02→14:06)
[2020-12-22] MEDS: Normal Saline 500 ML 30 ML IV (01:02)
[2020-12-22] MEDS: Normal Saline Flush 10 ML SYR IVP ×3 (01:04→17:12)
[2020-12-22] MEDS: DOXYCYCLINE 100 MG in Normal Saline 100 ML IVPB ×2 (01:04→14:06)
[2020-12-22 07:08] LABS: Abs Immature Grans 0.05 10^3/uL (0.0-0.06); Absolute Basophil Count 0.01 10^3/uL (0.0-0.2); Absolute Eosinophil Count 0.01 10^3/uL (0.0-0.7); Absolute Lymphocyte Count 0.74 10^3/uL (1.2-3.4); Absolute Monocyte Count 0.53 10^3/uL (0.1-0.8); Absolute Neutrophil Count 7.64 10^3/uL (1.2-6.7); Basophils % 0.1; Eosinophils % 0.1; HGB 12.6 g/dL (13.5-17.5); Immature Grans % 0.6; Lymphocytes % 8.2; MCH 30.8 pg (27.0-33.0); MCHC 34.1 % (32.0-36.0); MCV 90.5 fL (80-95); MPV 9.5 fL (8.0-11.0); Monocytes % 5.9; Neutrophils % 85.1; Nucleated RBC 0 %; Platelet Count 319 10^3/uL (130-400); RBC 4.09 10^6/uL (4.36-5.78); RDW 12.6 % (11.8-14.1); RDW-SD 41.8 fL; WBC 8.98 10^3/uL (4.4-10.8)
[2020-12-22 07:18] LABS: ALT 36 U/L (16-63); AST 38 U/L (15-37); Albumin 2.9 g/dL (3.4-5.0); Alkaline Phosphatase 101 U/L (46-116); Anion Gap 8.7 mmol/L (3-11); BUN 28 mg/dL (7-18); Bilirubin, Total 0.4 mg/dL (0.2-1.0); C-Reactive Protein 3.59 mg/dL (0.0-0.3); CO2 26.3 mmol/L (21.0-32.0); CREATININE 1.3 mg/dL (0.70-1.30); Calcium 8.4 mg/dL (8.5-10.1); Chloride 105 mmol/L (98-107); Estimated GFR 55.75 (mL/min/1.73m2); Glucose 131 mg/dL (74-106); Potassium 4.1 mmol/L (3.5-5.1); Sodium 140 mmol/L (136-145); Total Protein 7.1 g/dL (6.4-8.2)
[2020-12-22 07:52] LABS: D-Dimer 792 ng/mlFEU (<500)
[2020-12-22] MEDS: Insulin NPH-Human 300 UNITS/3 ML PEN 12 UNIT SC ×2 (08:29→17:10)
[2020-12-22] MEDS: Insulin Aspart 300 UNITS/3 ML PEN SC ×4 (08:32→17:07)
[2020-12-22] MEDS: Cholecalciferol (Vitamin D3) 1,000 UNIT TAB 2000 UNITS PO (08:33)
[2020-12-22] MEDS: Ascorbic Acid 500 MG TAB 1000 MG PO ×2 (08:33→19:03)
[2020-12-22] MEDS: Zinc Sulfate 220 MG TAB PO (08:33)
[2020-12-22] MEDS: Famotidine 20 MG TAB PO ×2 (08:33→19:02)
[2020-12-22] MEDS: PARoxetine 20 MG TAB 40 MG PO ×2 (08:34→19:04)
[2020-12-22] MEDS: busPIRone 15 MG TAB PO (08:34)
[2020-12-22] MEDS: Dexamethasone 4 MG/ML VIAL 6 MG IVP (08:34)
--- NOTE | 2020-12-22 11:28 | CMPROGNOTE_ITS ---
Care Management Progress Note S\O: Shahana transitioned from the ICU to M/S Covid area. Shahana was placed on Opti-Flow system due to increased WOB and SOB. CM continues to follow. A: 65 year old male admitted to [facility] 12/20/20 for Covid, Hypoxia P: Shahana continues to be closely monitored, anticipate he will discharge home with no additional services and transport with family. CM continues to follow.
[2020-12-22] MEDS: cefTRIAXone 1 GM/50 ML BAG IVPB (12:25)
--- NOTE | 2020-12-22 15:36 | W.PM.PROGNOT ---
Date of Service Date of service: 12/22/20 Time of Service: 15:36 Assessment and Plan Assessment and plan (1) Pneumonia due to severe acute respiratory syndrome coronavirus 2 (SARS-CoV-2): Status: Acute Assessment and plan: Continue current treatment with remdesivir and Decadron. Continue vitamin C, zinc, vitamin D and atorvastatin. As the patient is afebrile and not coughing up any purulent sputum we can probably discontinue the ceftriaxone and doxycycline. (2) Diabetes mellitus: Status: Acute Assessment and plan: Hold home metformin; has received IV contrast for CTA chest. Monitor glucose ACHS. SS insulin correction dosage. (3) Obsessive compulsive disorder: Status: Acute Assessment and plan: Continue his BuSpar as he takes it at home. Continue his Paxil and Risperdal. Subjective Subjective Interval history since last seen: Overall, patient states that he feels better this afternoon. He is not dyspneic at rest and says that he has more energy. Early this morning he was put on HFNC at 8:20 a.m. d/t oxygen desaturation into the mid 80% on 5 LPM NC. Since going on HFNC on 40% FIO2 his SPO2 has been 95 to 97%. He still has a cough but minimally productive of white mucous. He is afebrile. Yesterday his procalcitonin was 0.1. He remains on doxycycline and ceftriaxone in addition to his Remdesevir and decadron. His glucose levels are controlled in the 130's to 150's. He is on NPH 12 units bid along w/ moderate dose SSI and CHO coverage at 1:10 ratio. His d-dimer is declining at 792 (down from 1218) and his CRP is declining to 3.59 (from 9.11). Patient is asking how soon he can go home. I indicated to him that we needs to see improvement in his oxygenation and a normal SPO2 off oxygen before we can consider discharge home. He is now on day #3 of decadron and d #2 of Remdesevir (he was suppose to get his initial 200 mg in the ER but for unclear reasons this was not given, therefore his first day was yesterday) Exam Narrative Exam Narrative: Middle-age male alert and oriented person place time circumstance sitting up in his chair wearing high flow nasal cannula. No acute respiratory distress. Patient is able to talk in full paragraphs without dyspnea. Lungs are clear anteriorly posteriorly has some fine rales. Heart regular rate and rhythm Abdomen soft nontender Extremities without peripheral edema or calf tenderness Objective Last Vital Signs Temp 36.3 C L 12/22/20 12:27 Pulse 74 12/22/20 12:27 Resp 20 12/22/20 12:27 BP 135/81 12/22/20 12:27 Pulse Ox 97 12/22/20 12:27 Laboratory Results - last 24 hr 12/22/20 12/22/20 12/22/20 06:45 06:45 06:45 WBC 8.98 D RBC 4.09 L Hgb 12.6 L Hct 37.0 L MCV 90.5 MCH 30.8 MCHC 34.1 RDW 12.6 Plt Count 319 MPV 9.5 Immature Gran % 0.6 Neutrophils % 85.1 Lymphocytes % 8.2 Monocytes % 5.9 Eosinophils % 0.1 Basophils % 0.1 Nucleated RBC % 0 Absolute Neutrophils 7.64 H Absolute Lymphocytes 0.74 L Absolute Monocytes 0.53 Absolute Eosinophils 0.01 Absolute Basophils 0.01 D-Dimer 792 H Sodium 140 Potassium 4.1 Chloride 105 Carbon Dioxide 26.3 Anion Gap 8.7 BUN 28 H D Creatinine 1.3 Estimated GFR/1.73 m2 55.75 Glucose 131 H Calcium 8.4 L Total Bilirubin 0.4 AST 38 H ALT 36 Alkaline Phosphatase 101 C-Reactive Protein 3.59 H Total Protein 7.1 Albumin 2.9 L
[2020-12-22] MEDS: Atorvastatin 40 MG TAB PO (19:03)
--- NOTE | 2020-12-22 19:16 | RESPIRATORY ---
RT installed a Y piece in order for patient to be able to ambulate to bathroom with oxygen. Room only has one O2 hook-up so Y was installed to be able to hook HF system and oxymask both up at the same time. Rt had patient walk to bathroom to see how much he desats while ambulating. RT told Nursing to place patient on 6L Oxymask when he ambulates to bathroom. Nursing stated she will pass to later staffing tonight.
[2020-12-22] MEDS: risperiDONE 0.5 MG TAB PO (22:05)
[2020-12-22] MEDS: busPIRone 15 MG TAB 30 MG PO (22:05)
[2020-12-22] MEDS: hydrOXYzine HCL 25 MG TAB PO (22:05)
[2020-12-23] VITALS (61 sets, daily range): BP systolic 138–165; BP diastolic 75–97; PULSE 62–105; RESP 11–28; TEMP 34–36.8; O2SAT 89–98
[2020-12-23] MEDS: Enoxaparin 30 MG/0.3 ML SYR SC (01:08)
[2020-12-23 07:09] LABS: Abs Immature Grans 0.08 10^3/uL (0.0-0.06); Absolute Basophil Count 0.01 10^3/uL (0.0-0.2); Absolute Eosinophil Count 0.01 10^3/uL (0.0-0.7); Absolute Lymphocyte Count 0.76 10^3/uL (1.2-3.4); Absolute Neutrophil Count 8.13 10^3/uL (1.2-6.7); Basophils % 0.1; Eosinophils % 0.1; HCT 35.2 % (40.0-50.0); Immature Grans % 0.8; Lymphocytes % 7.9; MCH 30.6 pg (27.0-33.0); MCHC 34.1 % (32.0-36.0); MCV 89.8 fL (80-95); MPV 9.5 fL (8.0-11.0); Monocytes % 6.3; Neutrophils % 84.8; Nucleated RBC 0 %; Platelet Count 332 10^3/uL (130-400); RBC 3.92 10^6/uL (4.36-5.78); RDW 12.8 % (11.8-14.1); RDW-SD 42.2 fL; WBC 9.59 10^3/uL (4.4-10.8)
[2020-12-23 07:25] LABS: ALT 43 U/L (16-63); AST 39 U/L (15-37); Albumin 2.9 g/dL (3.4-5.0); Alkaline Phosphatase 98 U/L (46-116); Anion Gap 9.1 mmol/L (3-11); BUN 25 mg/dL (7-18); Bilirubin, Total 0.4 mg/dL (0.2-1.0); C-Reactive Protein 2.28 mg/dL (0.0-0.3); CO2 23.9 mmol/L (21.0-32.0); CREATININE 1.2 mg/dL (0.70-1.30); Calcium 8.5 mg/dL (8.5-10.1); Chloride 107 mmol/L (98-107); Glucose 104 mg/dL (74-106); Potassium 3.7 mmol/L (3.5-5.1); Sodium 140 mmol/L (136-145); Total Protein 6.8 g/dL (6.4-8.2)
[2020-12-23 07:43] LABS: D-Dimer 612 ng/mlFEU (<500)
[2020-12-23] MEDS: Insulin NPH-Human 300 UNITS/3 ML PEN 12 UNIT SC ×2 (08:23→17:21)
[2020-12-23] MEDS: Insulin Aspart 300 UNITS/3 ML PEN SC ×5 (08:23→17:20)
[2020-12-23] MEDS: Dexamethasone 4 MG/ML VIAL 6 MG IVP (08:24)
[2020-12-23] MEDS: Normal Saline Flush 10 ML SYR IVP (08:24)
[2020-12-23] MEDS: busPIRone 15 MG TAB PO (08:25)
[2020-12-23] MEDS: Cholecalciferol (Vitamin D3) 1,000 UNIT TAB 4000 UNITS PO (08:25)
[2020-12-23] MEDS: PARoxetine 20 MG TAB 40 MG PO ×2 (08:25→20:07)
[2020-12-23] MEDS: Zinc Sulfate 220 MG TAB PO (08:25)
[2020-12-23] MEDS: Ascorbic Acid 500 MG TAB 1000 MG PO ×2 (08:25→20:07)
[2020-12-23] MEDS: Famotidine 20 MG TAB PO ×2 (08:26→20:07)
[2020-12-23 09:09] LABS: BE -2 mmol/L (-2-3); HCO3 22 mmol/L (22-26); pCO2 36 mmHg (35-45); pO2 73 mmHg (80-105); sO2 94 % (95-98); tCO2 20 mmol/L (23-27)
[2020-12-23 09:13] LABS: FIO2 40 %; FIO2L 40 L; Site Right Radial
--- NOTE | 2020-12-23 11:18 | NUR.NOTE ---
Patient transferred from Medr room 217 to ICU room 219. Handoff was completed. Nursing Note:
[2020-12-23] MEDS: Enoxaparin 120 MG/0.8 ML SYR 110 MG SC (13:00)
--- NOTE | 2020-12-23 13:12 | CMPROGNOTE_ITS ---
- If Service Date Differs Date of service: 12/23/20 Time of Service: 13:12 Care Management Progress Note S/O: Shahana transitioned back to the ICU today due to his worsening condition. Per provider's note, Shahana's oxygen requirement has increased over the last 24 hours to 40L on humidified heated high flow. He continues to be treated with Remdesivir and Decadron. Lab work done this a.m. reveals normal WBC at 9.59, low RBC at 3.92, and an elevated D-Dimer at 612, though this is improved from yesterday's value of 792. Lovenox is increased to its full therapeutic dose to prevent blood clots. A: Shahana is a 65 year old male admitted to [facility] on 12/20/20 for Covid and hypoxia. P: No change in plan. Shahana continues to be closely monitored. Anticipate he will discharge home with no additional services when medically cleared by provider. He will be transported home via private vehicle by family when ready. CM will continue to follow.
--- NOTE | 2020-12-23 14:19 | W.PM.PROGNOT ---
Date of Service Date of service: 12/23/20 Time of Service: 14:20 Assessment and Plan Assessment and plan (1) Pneumonia due to severe acute respiratory syndrome coronavirus 2 (SARS-CoV-2): Status: Acute Assessment and plan: Worse over the last 24 hrs. Transferred to the ICU for closer monitoring. Continue O2 supplementation via humidified heated high flow. Continue remdesivir and Decadron. Continue vitamin C, D, zinc, and atorvastatin. Continue to hold antibiotics. Increase lovenox to full therapeutic anticoagulation. (2) Acute respiratory failure with hypoxia: Status: Acute Assessment and plan: As above (3) Diabetes mellitus: Status: Acute Assessment and plan: BGs controlled on current regimen - no change. Continue to hold home metformin. (4) Obsessive compulsive disorder: Status: Acute Assessment and plan: Continue buspar, Paxil and Risperdal. (5) DVT prophylaxis: Status: Acute Assessment and plan: Full dose anticoagulation with lovenox (6) Discharge planning issues: Status: Acute Assessment and plan: Full code Transferred to the ICU. Total Critical Care Time 45 minutes. Subjective Subjective Interval history since last seen: Mr Dow states he is actually feeling better today. However, his O2 requirement over the last 24 hrs did increase to 40% FiO2 40 L on humidified heated high flow. For this, he was transferred to the ICU. He denies dizziness, chest pain, states he is still BLUM. Denies n/v. Reports clear sputum production. Exam Narrative Exam Narrative: General: Very pleasant obese male, A&Ox3, sitting comfortably in a chair; also seen proning earlier today HEENT: EOMI, MMM Heart: RRR, no m/r/g Lungs: very diminished breath sounds B Abdomen: soft, nontender, nondistended Extremities: no edema BLEs Objective Last Vital Signs Temp 36.6 C 12/23/20 10:50 Pulse 82 12/23/20 08:21 Resp 18 12/23/20 08:21 BP 165/97 H 12/23/20 08:21 Pulse Ox 96 12/23/20 11:10 Laboratory Results - last 24 hr 12/23/20 12/23/20 12/23/20 06:45 06:45 06:45 WBC 9.59 RBC 3.92 L Hgb 12.0 L Hct 35.2 L MCV 89.8 MCH 30.6 MCHC 34.1 RDW 12.8 Plt Count 332 MPV 9.5 Immature Gran % 0.8 Neutrophils % 84.8 Lymphocytes % 7.9 Monocytes % 6.3 Eosinophils % 0.1 Basophils % 0.1 Nucleated RBC % 0 Absolute Neutrophils 8.13 H Absolute Lymphocytes 0.76 L Absolute Monocytes 0.60 Absolute Eosinophils 0.01 Absolute Basophils 0.01 D-Dimer 612 H ABG Sample Site ABG pH ABG pCO2 ABG pO2 ABG HCO3 ABG Total CO2 ABG O2 Saturation ABG Base Excess Oxygen Liter Flow FiO2 Sodium 140 Potassium 3.7 Chloride 107 Carbon Dioxide 23.9 Anion Gap 9.1 BUN 25 H Creatinine 1.2 Estimated GFR/1.73 m2 >= 60.00 Glucose 104 Calcium 8.5 Total Bilirubin 0.4 AST 39 H ALT 43 Alkaline Phosphatase 98 C-Reactive Protein 2.28 H Total Protein 6.8 Albumin 2.9 L 12/23/20 09:07 WBC RBC Hgb Hct MCV MCH MCHC RDW Plt Count MPV Immature Gran % Neutrophils % Lymphocytes % Monocytes % Eosinophils % Basophils % Nucleated RBC % Absolute Neutrophils Absolute Lymphocytes Absolute Monocytes Absolute Eosinophils Absolute Basophils D-Dimer ABG Sample Site Right radial ABG pH 7.40 ABG pCO2 36 ABG pO2 73 L ABG HCO3 22 ABG Total CO2 20 L ABG O2 Saturation 94 L ABG Base Excess -2 Oxygen Liter Flow 40 FiO2 40 Sodium Potassium Chloride Carbon Dioxide Anion Gap BUN Creatinine Estimated GFR/1.73 m2 Glucose Calcium Total Bilirubin AST ALT Alkaline Phosphatase C-Reactive Protein Total Protein Albumin
[2020-12-23] MEDS: Atorvastatin 40 MG TAB PO (20:07)
[2020-12-23] MEDS: risperiDONE 0.5 MG TAB PO (22:22)
[2020-12-23] MEDS: Melatonin 3 MG TAB 6 MG PO (22:22)
[2020-12-23] MEDS: busPIRone 15 MG TAB 30 MG PO (22:22)
[2020-12-23] MEDS: hydrOXYzine HCL 25 MG TAB PO (22:22)
[2020-12-24] VITALS (47 sets, daily range): BP systolic 128–160; BP diastolic 46–115; PULSE 59–86; RESP 10–25; TEMP 34–36.8; O2SAT 89–99
[2020-12-24] MEDS: Enoxaparin 120 MG/0.8 ML SYR 110 MG SC ×3 (00:45→23:44)
[2020-12-24 07:46] LABS: Abs Immature Grans 0.14 10^3/uL (0.0-0.06); Absolute Basophil Count 0.02 10^3/uL (0.0-0.2); Absolute Eosinophil Count 0.02 10^3/uL (0.0-0.7); Absolute Monocyte Count 0.69 10^3/uL (0.1-0.8); Basophils % 0.2; Eosinophils % 0.2; HCT 36.3 % (40.0-50.0); HGB 12.3 g/dL (13.5-17.5); Immature Grans % 1.7; Lymphocytes % 9.4; MCH 31.1 pg (27.0-33.0); MCHC 33.9 % (32.0-36.0); MCV 91.9 fL (80-95); MPV 9.4 fL (8.0-11.0); Monocytes % 8.1; Neutrophils % 80.4; Nucleated RBC 0 %; Platelet Count 356 10^3/uL (130-400); RBC 3.95 10^6/uL (4.36-5.78); RDW 12.7 % (11.8-14.1); RDW-SD 43.1 fL; WBC 8.47 10^3/uL (4.4-10.8)
[2020-12-24 08:08] LABS: ALT 72 U/L (16-63); AST 59 U/L (15-37); Albumin 2.8 g/dL (3.4-5.0); Alkaline Phosphatase 111 U/L (46-116); BUN 21 mg/dL (7-18); Bilirubin, Total 0.4 mg/dL (0.2-1.0); C-Reactive Protein 3.98 mg/dL (0.0-0.3); CREATININE 1.2 mg/dL (0.70-1.30); Calcium 8.6 mg/dL (8.5-10.1); Chloride 106 mmol/L (98-107); Glucose 81 mg/dL (74-106); Potassium 3.8 mmol/L (3.5-5.1); Sodium 140 mmol/L (136-145); Total Protein 6.9 g/dL (6.4-8.2)
[2020-12-24 08:15] LABS: Procalcitonin 0.1 ng/mL
[2020-12-24] MEDS: Insulin NPH-Human 300 UNITS/3 ML PEN 12 UNIT SC (08:16)
[2020-12-24] MEDS: Cholecalciferol (Vitamin D3) 1,000 UNIT TAB 4000 UNITS PO (08:18)
[2020-12-24] MEDS: Ascorbic Acid 500 MG TAB 1000 MG PO ×2 (08:19→19:52)
[2020-12-24] MEDS: busPIRone 15 MG TAB PO (08:19)
[2020-12-24] MEDS: PARoxetine 20 MG TAB 40 MG PO ×2 (08:19→19:52)
[2020-12-24] MEDS: Dexamethasone 4 MG/ML VIAL 6 MG IVP (08:20)
[2020-12-24 08:28] LABS: D-Dimer 571 ng/mlFEU (<500)
--- NOTE | 2020-12-24 08:29 | W.PM.PROGNOT ---
Date of Service Date of service: 12/24/20 Time of Service: 10:49 Assessment and Plan Assessment and plan (1) Pneumonia due to severe acute respiratory syndrome coronavirus 2 (SARS-CoV-2): Status: Acute Assessment and plan: Stable over the last 24 hrs. Keep in ICU. Continue O2 supplementation via humidified heated high flow. Wean O2 as tolerated. Continue remdesivir and Decadron. Continue vitamin C, D, zinc, and atorvastatin. Continue to hold antibiotics. Continue lovenox at full therapeutic dose. (2) Acute respiratory failure with hypoxia: Status: Acute Assessment and plan: As above (3) Diabetes mellitus: Status: Acute Assessment and plan: BGs controlled on current regimen - no change. Continue to hold home metformin. (4) Obsessive compulsive disorder: Status: Acute Assessment and plan: Continue buspar, Paxil and Risperdal. (5) DVT prophylaxis: Status: Acute Assessment and plan: Full dose anticoagulation with lovenox (6) Discharge planning issues: Status: Acute Assessment and plan: Full code Keep in ICU. Total Critical Care Time 35 minutes. Subjective Subjective Interval history since last seen: Nauseated this am at the same time as feeling shaking - BG was 79 at the time. Symptoms better with correction of low blood sugar. 97% 40 L 40%, 82 % on this while moving, 91% now. Slept on right side. Sitting in a chair now. Spent some time proning with the pillow today. Using IS/acapella. Respiratory secretions are clear. Denies dizziness, chest pain, nausea now, diarrhea. Still SOB. Exam Narrative Exam Narrative: General: Very pleasant obese male, A&Ox3, sitting comfortably in a chair HEENT: EOMI, MMM Heart: RRR, no m/r/g Lungs: very diminished breath sounds B Abdomen: soft, nontender, nondistended Extremities: no edema BLEs Objective Last Vital Signs Temp 36.6 C 12/24/20 04:30 Pulse 59 L 12/24/20 06:01 Resp 23 12/24/20 07:15 BP 134/70 12/24/20 06:01 Pulse Ox 95 12/24/20 07:15 Laboratory Results - last 24 hr 12/23/20 12/24/20 12/24/20 09:07 07:25 07:25 WBC 8.47 RBC 3.95 L Hgb 12.3 L Hct 36.3 L MCV 91.9 MCH 31.1 MCHC 33.9 RDW 12.7 Plt Count 356 MPV 9.4 Immature Gran % 1.7 Neutrophils % 80.4 Lymphocytes % 9.4 Monocytes % 8.1 Eosinophils % 0.2 Basophils % 0.2 Nucleated RBC % 0 Absolute Neutrophils 6.80 H Absolute Lymphocytes 0.80 L Absolute Monocytes 0.69 Absolute Eosinophils 0.02 Absolute Basophils 0.02 D-Dimer ABG Sample Site Right radial ABG pH 7.40 ABG pCO2 36 ABG pO2 73 L ABG HCO3 22 ABG Total CO2 20 L ABG O2 Saturation 94 L ABG Base Excess -2 Oxygen Liter Flow 40 FiO2 40 Sodium 140 Potassium 3.8 Chloride 106 Carbon Dioxide 21.0 Anion Gap 13.0 H BUN 21 H Creatinine 1.2 Estimated GFR/1.73 m2 >= 60.00 Glucose 81 Calcium 8.6 Magnesium 2.0 Total Bilirubin 0.4 AST 59 H ALT 72 H Alkaline Phosphatase 111 C-Reactive Protein 3.98 H Total Protein 6.9 Albumin 2.8 L Procalcitonin 12/24/20 12/24/20 12/24/20 07:25 07:25 07:25 WBC RBC Hgb Hct MCV MCH MCHC RDW Plt Count MPV Immature Gran % Neutrophils % Lymphocytes % Monocytes % Eosinophils % Basophils % Nucleated RBC % Absolute Neutrophils Absolute Lymphocytes Absolute Monocytes Absolute Eosinophils Absolute Basophils D-Dimer 571 H ABG Sample Site ABG pH ABG pCO2 ABG pO2 ABG HCO3 ABG Total CO2 ABG O2 Saturation ABG Base Excess Oxygen Liter Flow FiO2 Sodium Cancelled Potassium Cancelled Chloride Cancelled Carbon Dioxide Cancelled Anion Gap Cancelled BUN Cancelled Creatinine Cancelled Estimated GFR/1.73 m2 Cancelled Glucose Cancelled Calcium Cancelled Magnesium Total Bilirubin Cancelled AST Cancelled ALT Cancelled Alkaline Phosphatase Cancelled C-Reactive Protein Total Protein Cancelled Albumin Cancelled Procalcitonin 0.1
[2020-12-24 08:32] LABS: Ferritin 601 ng/mL (26-388)
[2020-12-24] MEDS: Famotidine 20 MG TAB PO ×2 (09:03→19:52)
[2020-12-24] MEDS: Zinc Sulfate 220 MG TAB PO (09:04)
--- NOTE | 2020-12-24 13:25 | PDOC.CMPRO ---
- If Service Date Differs Date of service: 12/24/20 Time of Service: 13:25 Care Management Progress Note S/O: Shahana transitioned back to the ICU yesterday due to his worsening condition. Per provider's note, Shahana oxygen saturation is 97% on 40 L but can drop into the 80's with movement. He has been out of bed in a chair today. Shahana continues to be treated with Remdesivir and Decadron. Lab work done this a.m. reveals normal WBC, elevated LFTs, an elevated CRP at 3.92 and a decreasing D-Dimer of 571. Shahana remains on full Covid precautions. A: Shahana is a 65 year old male admitted to [facility] on 12/20/20 for Covid and hypoxia. P: No change in plan. Shahana continues to be closely monitored. Anticipate he will discharge home with no additional services when medically cleared by provider. He will be transported home via private vehicle by family when ready. CM will continue to follow. cc:
[2020-12-24] MEDS: Insulin Aspart 300 UNITS/3 ML PEN SC ×2 (17:12→18:12)
[2020-12-24] MEDS: Insulin NPH-Human 300 UNITS/3 ML PEN 8 UNIT SC (18:40)
[2020-12-24] MEDS: Atorvastatin 40 MG TAB PO (19:52)
[2020-12-24] MEDS: busPIRone 15 MG TAB 30 MG PO (21:51)
[2020-12-24] MEDS: hydrOXYzine HCL 25 MG TAB PO (21:51)
[2020-12-24] MEDS: risperiDONE 0.5 MG TAB PO (21:52)
[2020-12-24] MEDS: Melatonin 3 MG TAB 6 MG PO (21:52)
[2020-12-25] VITALS (48 sets, daily range): BP systolic 111–164; BP diastolic 63–90; PULSE 57–92; RESP 11–24; TEMP 34–36.4; O2SAT 92–99
[2020-12-25 07:42] LABS: Abs Immature Grans 0.15 10^3/uL (0.0-0.06); Absolute Basophil Count 0.02 10^3/uL (0.0-0.2); Absolute Eosinophil Count 0.03 10^3/uL (0.0-0.7); Absolute Lymphocyte Count 0.72 10^3/uL (1.2-3.4); Absolute Monocyte Count 0.56 10^3/uL (0.1-0.8); Absolute Neutrophil Count 4.77 10^3/uL (1.2-6.7); Basophils % 0.3; Eosinophils % 0.5; HCT 37.1 % (40.0-50.0); HGB 12.3 g/dL (13.5-17.5); Immature Grans % 2.4; Lymphocytes % 11.5; MCH 29.9 pg (27.0-33.0); MCHC 33.2 % (32.0-36.0); MPV 9.4 fL (8.0-11.0); Neutrophils % 76.3; Nucleated RBC 0 %; Platelet Count 368 10^3/uL (130-400); RBC 4.12 10^6/uL (4.36-5.78); RDW 12.8 % (11.8-14.1); RDW-SD 42.2 fL; WBC 6.25 10^3/uL (4.4-10.8)
[2020-12-25 07:54] LABS: ALT 69 U/L (16-63); AST 38 U/L (15-37); Albumin 2.8 g/dL (3.4-5.0); Alkaline Phosphatase 102 U/L (46-116); Anion Gap 9.8 mmol/L (3-11); BUN 18 mg/dL (7-18); Bilirubin, Direct 0.2 mg/dL (0.0-0.2); Bilirubin, Total 0.4 mg/dL (0.2-1.0); C-Reactive Protein 6.89 mg/dL (0.0-0.3); CO2 26.2 mmol/L (21.0-32.0); CREATININE 1.1 mg/dL (0.70-1.30); Calcium 8.8 mg/dL (8.5-10.1); Chloride 106 mmol/L (98-107); Glucose 113 mg/dL (74-106); Potassium 4.1 mmol/L (3.5-5.1); Sodium 142 mmol/L (136-145); Total Protein 6.8 g/dL (6.4-8.2); Troponin I < 0.05 ng/mL (<0.06)
[2020-12-25] MEDS: Zinc Sulfate 220 MG TAB PO (08:04)
[2020-12-25] MEDS: Dexamethasone 4 MG/ML VIAL 6 MG IVP (08:04)
[2020-12-25] MEDS: busPIRone 15 MG TAB PO (08:05)
[2020-12-25] MEDS: Cholecalciferol (Vitamin D3) 1,000 UNIT TAB 4000 UNITS PO (08:05)
[2020-12-25] MEDS: Famotidine 20 MG TAB PO ×2 (08:05→20:47)
[2020-12-25] MEDS: Normal Saline Flush 10 ML SYR IVP (08:06)
[2020-12-25] MEDS: Ascorbic Acid 500 MG TAB 1000 MG PO ×2 (08:06→20:45)
[2020-12-25] MEDS: PARoxetine 20 MG TAB 40 MG PO ×2 (08:06→20:47)
[2020-12-25 08:17] LABS: Ferritin 545 ng/mL (26-388)
[2020-12-25 08:27] LABS: D-Dimer 553 ng/mlFEU (<500)
--- NOTE | 2020-12-25 08:29 | W.PM.PROGNOT ---
Date of Service Date of service: 12/25/20 Time of Service: 16:40 Assessment and Plan Assessment and plan (1) Pneumonia due to severe acute respiratory syndrome coronavirus 2 (SARS-CoV-2): Status: Acute Assessment and plan: Much improved - O2 requirement is now RA. Transfer out of ICU. Continue remdesivir and Decadron today. Continue vitamin C, D, zinc, and atorvastatin. No role for abx. Continue lovenox at full therapeutic dose. (2) Acute respiratory failure with hypoxia: Status: Acute Assessment and plan: As above (3) Diabetes mellitus: Status: Acute Assessment and plan: BGs controlled on current regimen - no change. Continue to hold home metformin. (4) Obsessive compulsive disorder: Status: Acute Assessment and plan: Continue buspar, Paxil and Risperdal. (5) DVT prophylaxis: Status: Acute Assessment and plan: Full dose anticoagulation with lovenox (6) Discharge planning issues: Status: Acute Assessment and plan: Full code Transfer out of the ICU. Today's visit was a telephone visit and physical exam is based on observation through ICU glass door. Subjective Subjective Interval history since last seen: Transitioned to room air this afternoon and feels much better. Denies dizziness, chest pain, shortness of breath, nausea. Feels he can take a deeper breath today. Proning - compliant. Today's visit happened over the phone as the patient is clinically stable and has COVID-19 pneumonia. Exam Narrative Exam Narrative: Patient seen via glass door of the ICU. General: obese male, sitting comfortably in a chair HEENT: EOMI Heart: not auscultated. Monitor with NSR. Lungs: nonlabored breathing on RA; no signs of cyanosis. Abdomen: not visibly distended Extremities: no obvious edema BLEs Objective Last Vital Signs Temp 36.1 C L 12/25/20 04:25 Pulse 57 L 12/25/20 06:01 Resp 20 12/25/20 06:01 BP 131/63 12/25/20 06:01 Pulse Ox 94 12/25/20 07:26 Laboratory Results - last 24 hr 12/24/20 12/25/20 12/25/20 07:25 07:20 07:20 WBC 6.25 RBC 4.12 L Hgb 12.3 L Hct 37.1 L MCV 90.0 MCH 29.9 MCHC 33.2 RDW 12.8 Plt Count 368 MPV 9.4 Immature Gran % 2.4 Neutrophils % 76.3 Lymphocytes % 11.5 Monocytes % 9.0 Eosinophils % 0.5 Basophils % 0.3 Nucleated RBC % 0 Absolute Neutrophils 4.77 Absolute Lymphocytes 0.72 L Absolute Monocytes 0.56 Absolute Eosinophils 0.03 Absolute Basophils 0.02 D-Dimer Sodium 142 Potassium 4.1 Chloride 106 Carbon Dioxide 26.2 Anion Gap 9.8 BUN 18 Creatinine 1.1 Estimated GFR/1.73 m2 >= 60.00 Glucose 113 H Calcium 8.8 Magnesium 2.0 Ferritin 601 H 545 H Total Bilirubin 0.4 Conjugated Bilirubin 0.2 AST 38 H ALT 69 H Alkaline Phosphatase 102 Troponin I < 0.05 C-Reactive Protein 6.89 H Total Protein 6.8 Albumin 2.8 L 12/25/20 07:20 WBC RBC Hgb Hct MCV MCH MCHC RDW Plt Count MPV Immature Gran % Neutrophils % Lymphocytes % Monocytes % Eosinophils % Basophils % Nucleated RBC % Absolute Neutrophils Absolute Lymphocytes Absolute Monocytes Absolute Eosinophils Absolute Basophils D-Dimer 553 H Sodium Potassium Chloride Carbon Dioxide Anion Gap BUN Creatinine Estimated GFR/1.73 m2 Glucose Calcium Magnesium Ferritin Total Bilirubin Conjugated Bilirubin AST ALT Alkaline Phosphatase Troponin I C-Reactive Protein Total Protein Albumin
[2020-12-25] MEDS: Insulin NPH-Human 300 UNITS/3 ML PEN 8 UNIT SC ×2 (08:30→17:00)
[2020-12-25] MEDS: Insulin Aspart 300 UNITS/3 ML PEN SC ×5 (08:30→17:00)
--- NOTE | 2020-12-25 08:57 | PDOC.CMPRO ---
Care Management Progress Note S/O: Shahana remains in the ICU at this time, he continues to be treated with Remdesivir and Decadron. Shahana remains on full Covid precautions. CM continues to follow. A: Shahana is a 65 year old male admitted to [facility] on 12/20/20 for Covid and hypoxia. P: No change in plan. Shahana continues to be closely monitored. Anticipate he will discharge home with no additional services when medically cleared by provider. He will be transported home via private vehicle by family when ready. CM will continue to follow
[2020-12-25] MEDS: Enoxaparin 120 MG/0.8 ML SYR 110 MG SC ×2 (12:49→23:49)
--- NOTE | 2020-12-25 13:01 | W.INDIABCONS ---
Date of service: 12/25/20 Time of Service: 13:01 Diabetes Inpatient Consult DESCRIPTION/ASSESSMENT: 65 year old male admitted into ICU with acute respiratory failure with hypoxia due to covid positive PNA with DM2, obesity. Most recent A1C 7.4% indicates mildly elevated blood sugars. Home Dm regime include metformin 500 mg BID. Following diabetic diet with adequate intake. Not at nutritional risk at this time. Nursing reports will be discharged home soon. INTERVENTION: Would benefit from outpatient diabetes education Did not provide inpatient education at this time due to covid precautions. PLAN: recommend referral to outpatient diabetes self management education. Time Spent in Nutritional Counseling and Treatment: 0
--- NOTE | 2020-12-25 14:17 | W.NUTCONSULT ---
Date of service: 12/25/20 Time of Service: 14:18 Nutritional Consult ASSESSMENT: 85 year old male admitted to ICU with SBO with aspiration PNA, with acute respiratory failure, DM2, CHF. NPO x 2 days with IV fluid support. Most recent A1C wnl( 6.1%) indicating good glycemic control. Medical chart indicates 24 lbs weight loss in last 6 months indicating signficant weight loss of 15%. Appears malnourished. [employer] consult pending. At high nutritional risk. NUTRITIONAL DIAGNOSIS: Moderate malnutrition in view of significant weight loss prior to hospitalization. INTERVENTION: Advance diet per surgery/appropriate Diet texture per [employer] OFFICER consult MONITORING AND EVALUATION: will continue to follow. Will need to consider nutrition support if NPO status > 5 days in view of poor nutritional status Time Spent in Nutritional Counseling and Treatment: 5 min
[2020-12-25] MEDS: Atorvastatin 40 MG TAB PO (20:45)
[2020-12-25] MEDS: hydrOXYzine HCL 25 MG TAB PO (21:40)
[2020-12-25] MEDS: busPIRone 15 MG TAB 30 MG PO (21:40)
[2020-12-25] MEDS: risperiDONE 0.5 MG TAB (21:40)
[2020-12-26] VITALS (9 sets, daily range): BP systolic 127–163; BP diastolic 76–99; PULSE 63–109; RESP 14–28; TEMP 36.4–36.7; O2SAT 88–95
--- NOTE | 2020-12-26 03:10 | NUR.NOTE ---
Nursing Note: 12/26/20 0230H Patient transferred to Med/surg floor from ICU. Wheeled to Room 217 and in to bed safely. vital signs taken and assessments done. Continuous pulse oximeter attached to patient and plugged into [employer] system. Will continue to monitor.
[2020-12-26 07:53] LABS: Abs Immature Grans 0.21 10^3/uL (0.0-0.06); Absolute Basophil Count 0.02 10^3/uL (0.0-0.2); Absolute Eosinophil Count 0.02 10^3/uL (0.0-0.7); Absolute Lymphocyte Count 0.75 10^3/uL (1.2-3.4); Absolute Monocyte Count 0.68 10^3/uL (0.1-0.8); Absolute Neutrophil Count 5.31 10^3/uL (1.2-6.7); Basophils % 0.3; Eosinophils % 0.3; HCT 37.8 % (40.0-50.0); HGB 12.8 g/dL (13.5-17.5); Lymphocytes % 10.7; MCH 30.6 pg (27.0-33.0); MCHC 33.9 % (32.0-36.0); MCV 90.4 fL (80-95); MPV 9.3 fL (8.0-11.0); Monocytes % 9.7; Nucleated RBC 0 %; Platelet Count 402 10^3/uL (130-400); RBC 4.18 10^6/uL (4.36-5.78); RDW 12.5 % (11.8-14.1); RDW-SD 41.6 fL; WBC 6.99 10^3/uL (4.4-10.8)
[2020-12-26] MEDS: busPIRone 15 MG TAB PO (07:59)
[2020-12-26] MEDS: Ascorbic Acid 500 MG TAB 1000 MG PO ×2 (07:59→19:50)
[2020-12-26] MEDS: Zinc Sulfate 220 MG TAB PO (08:00)
[2020-12-26] MEDS: Dexamethasone 4 MG/ML VIAL 6 MG IVP (08:00)
[2020-12-26] MEDS: Cholecalciferol (Vitamin D3) 1,000 UNIT TAB 4000 UNITS PO (08:00)
[2020-12-26] MEDS: PARoxetine 20 MG TAB 40 MG PO ×2 (08:00→19:50)
[2020-12-26] MEDS: Famotidine 20 MG TAB PO ×2 (08:00→19:50)
[2020-12-26] MEDS: Normal Saline Flush 10 ML SYR IVP ×2 (08:01→19:49)
[2020-12-26 08:23] LABS: ALT 61 U/L (16-63); AST 33 U/L (15-37); Albumin 2.9 g/dL (3.4-5.0); Alkaline Phosphatase 98 U/L (46-116); Anion Gap 12.4 mmol/L (3-11); BUN 20 mg/dL (7-18); Bilirubin, Direct 0.1 mg/dL (0.0-0.2); Bilirubin, Total 0.4 mg/dL (0.2-1.0); CO2 23.6 mmol/L (21.0-32.0); CREATININE 1.2 mg/dL (0.70-1.30); Calcium 8.8 mg/dL (8.5-10.1); Chloride 106 mmol/L (98-107); Ferritin 529 ng/mL (26-388); Glucose 110 mg/dL (74-106); Magnesium 2.1 mg/dL (1.8-2.4); Potassium 3.7 mmol/L (3.5-5.1); Sodium 142 mmol/L (136-145); Total Protein 6.9 g/dL (6.4-8.2)
[2020-12-26 08:25] LABS: Troponin I < 0.05 ng/mL (<0.06)
[2020-12-26 08:34] LABS: C-Reactive Protein 4.15 mg/dL (0.0-0.3)
[2020-12-26] MEDS: Insulin Aspart 300 UNITS/3 ML PEN SC ×4 (08:47→17:05)
[2020-12-26] MEDS: Insulin NPH-Human 300 UNITS/3 ML PEN 8 UNIT SC ×2 (08:47→17:05)
[2020-12-26 09:14] LABS: D-Dimer 474 ng/mlFEU (<500)
[2020-12-26] MEDS: Enoxaparin 120 MG/0.8 ML SYR 110 MG SC ×2 (11:43→23:31)
--- NOTE | 2020-12-26 16:36 | CMPROGNOTE_ITS ---
Care Management Progress Note S/O: Shahana continues to be closely monitored and treated at this time. Shahana remains on full Covid precautions. CM continues to follow. A: Shahana is a 65 year old male admitted to [facility] on 12/20/20 for Covid and hypoxia. P: No change in plan. Shahana continues to be closely monitored. Anticipate he will discharge home with no additional services when medically cleared by provider. He will be transported home via private vehicle by family when ready. CM will continue to follow
--- NOTE | 2020-12-26 16:52 | W.PM.PROGNOT ---
Date of Service Date of service: 12/26/20 Time of Service: 12:10 Assessment and Plan Assessment and plan (1) Pneumonia due to severe acute respiratory syndrome coronavirus 2 (SARS-CoV-2): Status: Acute Assessment and plan: Much improved - O2 requirement is now RA at rest, but still requiring O2 on ambulation. Continue remdesivir and Decadron. Continue vitamin C, D, zinc, and atorvastatin. No role for abx. Continue lovenox at full therapeutic dose. Xarelto 10 mg daily x 30 days on discharge. (2) Acute respiratory failure with hypoxia: Status: Acute Assessment and plan: As above (3) Diabetes mellitus: Status: Acute Assessment and plan: BGs controlled on current regimen - no change. Continue to hold home metformin. (4) Obsessive compulsive disorder: Status: Acute Assessment and plan: Continue buspar, Paxil and Risperdal. (5) DVT prophylaxis: Status: Acute Assessment and plan: Full dose anticoagulation with lovenox (6) Discharge planning issues: Status: Acute Assessment and plan: Full code Likely discharge home tomorrow. Subjective Subjective Interval history since last seen: Feels better today. However, on ambulatory pulse ox, did still desaturate to the 80s with only a little activity. RT was concerned about the patient's appearance at that time as well. He agrees to stay another day. Denies dizziness, chest pain, shortness of breath, nausea. Exam Narrative Exam Narrative: General: obese male, sitting comfortably at the edge of the bed HEENT: EOMI, MMM Heart: RRR, no m/r/g Lungs: Diminished breath sounds at B bases Abdomen:soft, nontender, nondistended Extremities: no edema BLEs Objective Last Vital Signs Temp 36.4 C L 12/26/20 15:42 Pulse 75 12/26/20 15:42 Resp 18 12/26/20 15:42 BP 139/78 12/26/20 15:42 Pulse Ox 90 L 12/26/20 15:42 Laboratory Results - last 24 hr 12/26/20 12/26/20 12/26/20 07:40 07:40 07:40 WBC 6.99 RBC 4.18 L Hgb 12.8 L Hct 37.8 L MCV 90.4 MCH 30.6 MCHC 33.9 RDW 12.5 Plt Count 402 H MPV 9.3 Immature Gran % 3.0 Neutrophils % 76.0 Lymphocytes % 10.7 Monocytes % 9.7 Eosinophils % 0.3 Basophils % 0.3 Nucleated RBC % 0 Absolute Neutrophils 5.31 Absolute Lymphocytes 0.75 L Absolute Monocytes 0.68 Absolute Eosinophils 0.02 Absolute Basophils 0.02 D-Dimer 474 Sodium 142 Potassium 3.7 Chloride 106 Carbon Dioxide 23.6 Anion Gap 12.4 H BUN 20 H Creatinine 1.2 Estimated GFR/1.73 m2 >= 60.00 Glucose 110 H Calcium 8.8 Magnesium 2.1 Ferritin 529 H Total Bilirubin 0.4 Conjugated Bilirubin 0.1 AST 33 ALT 61 Alkaline Phosphatase 98 Troponin I < 0.05 C-Reactive Protein 4.15 H Total Protein 6.9 Albumin 2.9 L
[2020-12-26] MEDS: Atorvastatin 40 MG TAB PO (19:50)
[2020-12-26] MEDS: hydrOXYzine HCL 25 MG TAB PO (23:32)
[2020-12-26] MEDS: risperiDONE 0.5 MG TAB PO (23:32)
[2020-12-26] MEDS: busPIRone 15 MG TAB 30 MG PO (23:32)
[2020-12-27 03:36] VITALS: BP 125/82; PULSE 63; RESP 22; TEMP 35.8; O2SAT 94
[2020-12-27] MEDS: Famotidine 20 MG TAB PO ×2 (08:21→20:20)
[2020-12-27] MEDS: Ascorbic Acid 500 MG TAB 1000 MG PO ×2 (08:21→20:20)
[2020-12-27] MEDS: busPIRone 15 MG TAB PO (08:21)
[2020-12-27] MEDS: Zinc Sulfate 220 MG TAB PO (08:21)
[2020-12-27] MEDS: PARoxetine 20 MG TAB 40 MG PO ×2 (08:21→20:20)
[2020-12-27] MEDS: Dexamethasone 4 MG/ML VIAL 6 MG IVP (08:21)
[2020-12-27] MEDS: Cholecalciferol (Vitamin D3) 1,000 UNIT TAB 4000 UNITS PO (08:21)
[2020-12-27] MEDS: Normal Saline Flush 10 ML SYR IVP ×2 (08:22→20:21)
[2020-12-27] MEDS: Insulin Aspart 300 UNITS/3 ML PEN SC ×4 (08:22→17:22)
[2020-12-27] MEDS: Insulin NPH-Human 300 UNITS/3 ML PEN 8 UNIT SC ×2 (08:22→17:21)
[2020-12-27 08:23] VITALS: BP 148/96; PULSE 80; RESP 19; TEMP 36.9; O2SAT 93
[2020-12-27 11:28] VITALS: PULSE 111; PULSE 86; PULSE 90; RESP 18; RESP 20; O2SAT 87; O2SAT 94
[2020-12-27] MEDS: Enoxaparin 120 MG/0.8 ML SYR 110 MG SC (12:03)
--- NOTE | 2020-12-27 15:26 | W.PM.DS.N ---
Date of service: 12/27/20 Time of Service: 15:26 DS: Diagnosis Discharge Diagnosis (1) Pneumonia due to severe acute respiratory syndrome coronavirus 2 (SARS-CoV-2): Status: Acute (2) Acute respiratory failure with hypoxia: Status: Resolved (3) Diabetes mellitus: Status: Chronic (4) Obsessive compulsive disorder: Status: Chronic (5) Steroid-induced hyperglycemia: Status: Acute Discharge Plan Disposition Patient Disposition: HOME Condition: Improving Discharge Details Reason For Visit: COVID, HYPOXIA Admit Date/Time: 12/20/20 20:54 Admit Provider: Jordan Borrego Attending Provider: Jordan Borrego Primary Care Provider: [facility] Hospital Course Hospital Course: Mr Dow is a 65 year old male with PMHx of NIDDM2, hyperlipidemia obesity with BMI of 33, and OCD, was was a patient on [facility] hospitalist service from 12/20/20 until 12/27/20 for COVID-19 pneumonia with acute hypoxic respiratory failure. He was initiated on decadron, remdesivir, and supplemental oxygen, as well as vitamins C, D, zinc, melatonin, and the patient was very compliant with proning, but despite this his O2 requirement worsened on 12/22/20 to the point that he now needed humidified heated high flow nasal canula. He was moved to the ICU for closer monitoring. There, his O2 requirement stabilized and improved to room air at rest, though he still needed oxygen on ambulation. He was transferred out of the ICU on 12/25/20. By 12/28/20, the patient was saturating in the 90s on room air with ambulation and is ready for discharge home. He will complete a short decadron taper as well as 30 days of xarelto 10 mg daily (coverage by insurance verified prior to discharge). Home Meds and New Rx's Prescriptions: New ascorbic acid (vitamin C) [Vitamin C] 500 mg Tablet 1,000 mg PO BID Qty: 0 RF: 0 atorvastatin [Lipitor] 40 mg Tablet 40 mg PO QPM Qty: 30 RF: 0 famotidine 20 mg Tablet 20 mg PO BID Qty: 60 RF: 0 cholecalciferol (vitamin D3) 25 mcg (1,000 unit) Tablet 4,000 units PO DAILY Qty: 0 RF: 0 zinc sulfate [Zinc-220] 50 mg zinc (220 mg) Capsule 220 mg PO DAILY Qty: 7 RF: 0 dexamethasone [Decadron] 4 mg tablet See Rx Instructions .ROUTE .COMPLEX Qty: 4 RF: 0 Xarelto 10 mg tablet 10 mg PO DAILY Qty: 30 RF: 0 Continued indomethacin 50 mg capsule 50 mg PO BID PRN (Reason: gout) Qty: 25 RF: 2 melatonin 5 mg tablet 5 mg PO HS Qty: 90 RF: 4 Hold Instructions: Home Medication placed on hold at Doctor's office doxylamine succinate 25 mg tablet 25 mg PO QHS PRN (Reason: sleep) Qty: 30 RF: 2 metformin 500 mg tablet 500 mg PO BID Qty: 180 RF: 4 hydroxyzine HCl 25 mg tablet 25 mg PO QHS Qty: 30 RF: 3 Hold Instructions: Home Medication placed on hold at Doctor's office buspirone 15 mg tablet 15 - 30 mg PO BID Qty: 270 RF: 4 paroxetine HCl 40 mg tablet 40 mg PO BID Qty: 180 RF: 4 risperidone 0.5 mg tablet 0.5 mg PO QHS Qty: 90 RF: 4 Discontinued rosuvastatin [Crestor] 10 mg tablet 10 mg PO DAILY Qty: 90 RF: 4 Discharge Instructions Instructions: Dexamethasone (By mouth), Rivaroxaban (By mouth), COVID-19 (Coronavirus Disease 2019) (DC) Additional Instructions: Continue to prone when at home. Finish your steroids as prescribed. Return to the hospital with any fever, bleeding, chest pain, shortness of breath, asymmetric swelling of one of your extremities. Follow up with your PCP in 1-2 weeks. You should still seek vaccination 3 weeks after your illness. Stand Alone Forms: Nursing Discharge Form Referrals: Valeri Gonzalez MD [Primary Care Provider] - Activity:: Activity as Tolerated Equipment/Supplies:: No Equipment Needed Diet:: As Tolerated Discharge Orders Discharge Orders: Discharge Order (Routine); Ordered 12/28/20 Ordered By: Olamide Castro DS: Summary Time Spent with Patient providing and/or coordinating discharge services: Less than 30 minutes Status at Discharge Functional status at discharge: independent ambulation Overall status at discharge: patient is progressing back to baseline Mental Status: mental status grossly normal Speech and Movement: speech and movement normal Mood: congruent mood Affect: normal affect Exam Narrative Exam Narrative: Today's visit was done over the phone. No audible dyspnea/tachypnea noted in that conversation. Psych Mental Status: mental status grossly normal Speech and Movement: speech and movement normal Mood: congruent mood Affect: normal affect DS: Data Vitals/I&O Vitals and I&O: Vital Signs Temperature 36.9 C 12/27/20 08:23 Temperature Source Tympanic 12/27/20 08:23 Pulse 80 12/27/20 08:23 Pulse Rhythm Regular 12/27/20 08:20 Pulse 72 12/26/20 07:55 Respiratory Rate 19 12/27/20 08:23 Respiratory Effort 12/27/20 08:20 Respiratory Depth Normal 12/27/20 08:20 Respiratory Pattern Normal 12/27/20 08:20 Blood Pressure 148/96 H 12/27/20 08:23 Blood Pressure Mean 89 12/26/20 01:56 Blood Pressure Position Supine 12/24/20 04:30 Pulse Oximetry 93 12/27/20 08:23 Oxygen Delivery Method Room Air 12/27/20 08:23 Oxygen Flow Rate 0 12/27/20 08:23 Fraction of Inspired Oxygen (FIO2) 30 12/25/20 13:48 Pain Level 0 12/27/20 03:36 Comment 12/25/20 20:00 Intake & Output 12/26/20 12/27/20 12/27/20 23:59 11:59 23:59 Intake Total 790 / 1260 250 / 350 100 / 350 Balance 790 / 360 250 / 350 100 / 350 Intake: IV 100 / 120 10 / 110 100 / 110 Oral 690 / 1140 240 / 240 Other: Urine Color Yellow Yellow Urine Appearance Clear Clear Comment using bathroom independently. Voiding Methods Toilet Toilet Data Completed and Pending Completed studies during hospitalization [Text1]: CXR 12/20/20: Bilateral infiltrates. No pleural effusions. Recommend testing for Covid-19 CTA chest 12/20/20: 1. Extensive bilateral ground-glass infiltrates, consistent with apparent known history of Covid-19.No pleural effusions. No prominent intrathoracic adenopathy. 2. No evidence of pulmonary embolus. 3. Hepatic steatosis incidentally noted. [facility] Medical History (Updated 12/28/20 @ 10:14 by Olamide Castro MD) Diabetes mellitus (06/03/12) no retinopathy no neuropathy Gout Hyperlipidemia Obsessive compulsive disorder Parkinsonian syndrome Overweight Family History (Updated 07/06/19 @ 10:52 by Arsh Rodrigues) Mother , age 73? Essential hypertension Diabetes Heart disease Hyperlipidemia Father , age 55? Melanoma Brother Hyperlipidemia Diabetes Maternal Grandfather No problems noted. Maternal Grandmother No problems noted. Paternal Grandmother No problems noted. Sister Diabetes Hyperlipidemia Paternal Grandfather No problems noted. Social History Smoking/Tobacco Use Status: Never Smoking risk assessment performed?: Yes Alcohol Intake: current Alcohol Intake frequency: a few times a week Alcohol type: beer Drug use: Never Substance use type: does not use Caregiver/Support person: No Household members: none Housing: house Communication Needs: None Do you need help understanding health information?: Never Pets and animals: Yes Pets and animals: dog(s) Sexually active: Yes Do you think of yourself as: straight/heterosexual Current gender identity: male What is your relationship status?: never How often do you talk on the phone with friends or family?: three or more times per week How often do you get together with friends or relatives?: three or more times per week How often do you attend yazidi or yarsanism services?: 1-3 times per year Do you belong to any clubs or organized social groups?: no Panel score (0-1 are the most socially isolated patients): 1 What type of physical activity do you participate in: other Details: garage work Duration: > 90 minutes/day Frequency: 5-6 times per week Becka/Orthodoxy: Baptist Special becka needs: No Seatbelt use: always Helmet use: Yes Helmet use: always Drive intox or ride w/intox team truck driver: No Do you feel safe at home: Yes Do you feel safe in your relationship?: Yes
--- NOTE | 2020-12-27 15:43 | W.PM.PROGNOT ---
Date of Service Date of service: 12/27/20 Time of Service: 15:43 Assessment and Plan Assessment and plan (1) Pneumonia due to severe acute respiratory syndrome coronavirus 2 (SARS-CoV-2): Status: Acute Assessment and plan: Much improved - O2 requirement unchanged from yesterday. Continue remdesivir and Decadron. Continue vitamin C, D, zinc, and atorvastatin. No role for abx. Continue lovenox at full therapeutic dose. Xarelto 10 mg daily x 30 days on discharge as well as decadron taper. Plan to discharge patient home tomorrow with O2. RT to provide pulse ox. (2) Acute respiratory failure with hypoxia: Status: Acute Assessment and plan: As above (3) Diabetes mellitus: Status: Acute Assessment and plan: BGs controlled on current regimen - no change. Continue to hold home metformin. (4) Obsessive compulsive disorder: Status: Acute Assessment and plan: Continue buspar, Paxil and Risperdal. Subjective Subjective Interval history since last seen: Mr Dow states he is feeling better today and would like to go home. He did desaturate to 87 % on room air when he tried to walk. He saturates in the 90s at rest. Initially, he refused oxygen and was expected to stay in the hospital until his oxygen requirement resolved. He now agrees to go home on oxygen, but [facility] cannot get oxygen to his house today because for patient's with COVID, they need to deliver oxygen to the house when the patient is not there. The patient denies any new complaints today, including chest pain, shortness of breath, nausea. Exam Narrative Exam Narrative: Today's visit was done over the phone. No audible dyspnea/tachypnea noted in that conversation. Objective Last Vital Signs Temp 36.9 C 12/27/20 08:23 Pulse 80 12/27/20 08:23 Resp 19 12/27/20 08:23 BP 148/96 H 12/27/20 08:23 Pulse Ox 93 12/27/20 08:23
[2020-12-27 17:15] VITALS: BP 136/92; PULSE 78; RESP 16; TEMP 36.6; O2SAT 95
--- NOTE | 2020-12-27 17:29 | PDOC.CMPRO ---
Care Management Progress Note S/O: Shahana remains on full Covid precautions on M/S. Respiratory coordinated home O2 for anticipated discharge tomorrow; Shahana will be returning to his brother Rafiq so Shahana has additional support post hospitalization. O2 will be delivered to [facility] per patient and RT. No additional services anticipated at this time. CM continues to follow. A: Shahana is a 65 year old male admitted to [facility] on 12/20/20 for Covid and hypoxia. P: Shahana reports his sister will be transporting him to his brother, [facility] home. RT coordinating O2 to be delivered to [facility] prior to patient discharge. reports new prescription for Xarelto will be submitted to [facility] in [place], as well. No additional services anticipated at this time. CM will continue to follow
[2020-12-27 20:15] VITALS: BP 111/70; PULSE 70; RESP 16; TEMP 36.3; O2SAT 95
[2020-12-27] MEDS: Atorvastatin 40 MG TAB PO (20:20)
[2020-12-27] MEDS: risperiDONE 0.5 MG TAB PO (22:17)
[2020-12-27] MEDS: hydrOXYzine HCL 25 MG TAB PO (22:17)
[2020-12-27] MEDS: busPIRone 15 MG TAB 30 MG PO (22:18)
[2020-12-28] MEDS: Enoxaparin 120 MG/0.8 ML SYR 110 MG SC
[2020-12-28] MEDS: Insulin Aspart 300 UNITS/3 ML PEN SC ×2 (00:07→08:21)
[2020-12-28 00:18] VITALS: BP 123/69; PULSE 57; RESP 16; TEMP 35.4; O2SAT 94
[2020-12-28 04:07] VITALS: BP 120/70; PULSE 57; RESP 20; TEMP 35.3; O2SAT 93
[2020-12-28 04:41] LABS: Vitamin D 25 Total 16.1 ng/mL (30-100)
[2020-12-28 07:35] VITALS: O2SAT 96
--- NOTE | 2020-12-28 07:49 | RESPIRATORY ---
RT walked with pt this AM to assess need for home O2. Vitals before walk: HR 57, RR 16, SpO2 96% RA. Pt walked 200 ft in his room, 0 stops, on room air vitals were: HR 77, RR 20, lowest SpO2 90% RA. Pt stated he felt great. 3 minutes after recovery, pt's vitals were: HR 56, RR 16, SpO2 95% room air. Pt does not qualify for home O2 at this time.
[2020-12-28 08:20] VITALS: BP 144/90; PULSE 75; RESP 17; TEMP 36.8; O2SAT 94
[2020-12-28] MEDS: Cholecalciferol (Vitamin D3) 1,000 UNIT TAB 4000 UNITS PO (08:20)
[2020-12-28] MEDS: Zinc Sulfate 220 MG TAB PO (08:20)
[2020-12-28] MEDS: Ascorbic Acid 500 MG TAB 1000 MG PO (08:20)
[2020-12-28] MEDS: busPIRone 15 MG TAB PO (08:20)
[2020-12-28] MEDS: Famotidine 20 MG TAB PO (08:20)
[2020-12-28] MEDS: Normal Saline Flush 10 ML SYR IVP ×2 (08:21)
[2020-12-28] MEDS: Insulin NPH-Human 300 UNITS/3 ML PEN 8 UNIT SC (08:22)
[2020-12-28] MEDS: PARoxetine 20 MG TAB 40 MG PO (09:25)
[2020-12-28 09:30] VITALS: PULSE 80; RESP 18; O2SAT 94
--- NOTE | 2020-12-28 17:07 | PDOC.CMDIS ---
- If Service Date Differs Date of service: 12/28/20 Time of Service: 17:07 LACE Index Scoring Tool - Questions: Length of Stay (in days): 7 - 13 Acuity (Admit via E.D.?): Yes Comorbidities: Diabetes w/o Complication E.D. Visits: 1 - Answers: Total Score: 10 Risk of Readmission: High Risk Care Management Discharge Reason for Hospitalization: COVID, Hypoxia Discharge Plan: Shahana will return home with no additional services. CM called his pharmacy to verify his copay for xarelto, which was $3. He was driven home via private vehicle by family. He will follow up with his PCP and discharge plan of care. He is happy to be returning home. Patient/Family Education Needs: Review discharge instructions regarding activity levels and medications, discussion of self care needs including ask me three.
== END 2020-12-28 11:42 | disposition home or self-care (01) | DRG 177 ==
LOC: ER 21:21 → ICU 23:24 → MS 12-22 04:27 → ICU 12-23 10:50 → MS 12-26 08:25
PROVIDERS: Internal Medicine; Admitting Provider Family Medicine; Emergency Provider Physician Assistant; PCP Family Medicine; Visit Provider Family Medicine
DX: U07.1 COVID-19 (principal); J12.82 Pneumonia due to coronavirus disease 2019; J96.01 Acute respiratory failure with hypoxia; E78.5 Hyperlipidemia, unspecified; E66.3 Overweight; Z68.33 Body mass index [BMI] 33.0-33.9, adult; M10.9 Gout, unspecified; F42.9 Obsessive-compulsive disorder, unspecified
CPT/HCPCS: 36415; 71275; 80048; 80053; 80076; 82306; 82550; 82805; 84145; 86850; 86900; 86901; 87635; 94618; 96361; 96374; 99222; 99232; 99233; 99238; 99285; 99291; 36600; 71045; 82728; 83036; 83735; 83880; 84484; 85025; 85379; 85610; 85730; 86140; 94667; 94668; J0696; J1100; J1644; J1650; J2405; J3490

== ENCOUNTER 2021-03-09 02:40 | Outpatient (CLI) | payer MEDICAID, SELFPAY ==
[2021-03-09 12:41] LABS: Platelet Count 221 10^3/uL (130-400)
[2021-03-09 13:17] LABS: ALT 70 U/L (16-63); AST 37 U/L (15-37); Albumin 3.9 g/dL (3.4-5.0); Alkaline Phosphatase 104 U/L (46-116); Anion Gap 9.4 mmol/L (3-11); BUN 12 mg/dL (7-18); Bilirubin, Total 0.3 mg/dL (0.2-1.0); CO2 27.6 mmol/L (21.0-32.0); CREATININE 1.2 mg/dL (0.70-1.30); Calcium 8.9 mg/dL (8.5-10.1); Calculated LDL 87 mg/dL (<100); Chloride 105 mmol/L (98-107); Cholesterol 157 mg/dL (<200); Ferritin 265 ng/mL (26-388); Glucose 121 mg/dL (74-106); HDL Cholesterol 34 mg/dL (40-60); Potassium 4.3 mmol/L (3.5-5.1); Sodium 142 mmol/L (136-145); Triglyceride 182 mg/dL (<150)
[2021-03-09 13:25] LABS: COMMENT (LAB VIEW ONLY) 126.79 mg/dL; Microalb ug/mg Crea 15.1 ug/mg Cr
[2021-03-09 13:30] LABS: C-Reactive Protein 0.79 mg/dL (0.0-0.3)
[2021-03-09 13:44] LABS: Hemoglobin A1C 6.7 % (<5.7)
== END 2021-03-09 02:41 | disposition home or self-care (01) ==
LOC: LOS 02:40
PROVIDERS: PCP Family Medicine; Visit Provider Family Medicine
DX: U07.1 COVID-19 (principal); E11.9 Type 2 diabetes mellitus without complications
CPT/HCPCS: 36415; 80053; 80061; 82043; 82570; 82728; 83036; 85049; 86140

== ENCOUNTER 2021-06-11 08:47 | Outpatient (CLI) | payer MEDICAID, SELFPAY ==
[2021-06-11 12:47] LABS: ALT 42 U/L (16-63); AST 27 U/L (15-37); Albumin 4.1 g/dL (3.4-5.0); Alkaline Phosphatase 81 U/L (46-116); Anion Gap 6.8 mmol/L (3-11); BUN 10 mg/dL (7-18); Bilirubin, Total 0.3 mg/dL (0.2-1.0); CO2 29.2 mmol/L (21.0-32.0); CREATININE 1.4 mg/dL (0.70-1.30); Calcium 8.8 mg/dL (8.5-10.1); Chloride 108 mmol/L (98-107); Estimated GFR 51.18 (mL/min/1.73m2); Glucose 114 mg/dL (74-106); Sodium 144 mmol/L (136-145); TSH 2.96 uIU/mL (0.36-3.74)
[2021-06-11 13:03] LABS: Vitamin D 25 Total 26.8 ng/mL (30-100)
== END 2021-06-11 08:48 | disposition home or self-care (01) ==
LOC: LOS 08:49
PROVIDERS: PCP Family Medicine; Visit Provider Family Medicine
DX: R25.1 Tremor, unspecified (principal); E55.9 Vitamin D deficiency, unspecified; R79.89 Other specified abnormal findings of blood chemistry
CPT/HCPCS: 36415; 80053; 82306; 84443

== ENCOUNTER 2021-12-12 02:49 | Outpatient (CLI) | payer MEDICAID, SELFPAY ==
[2021-12-12 13:21] LABS: ALT 37 U/L (16-63); AST 24 U/L (15-37); Albumin 4.4 g/dL (3.4-5.0); Alkaline Phosphatase 85 U/L (46-116); Anion Gap 9.2 mmol/L (3-11); BUN 23 mg/dL (7-18); Bilirubin, Total 0.5 mg/dL (0.2-1.0); CO2 25.8 mmol/L (21.0-32.0); CREATININE 1.6 mg/dL (0.70-1.30); Calcium 8.8 mg/dL (8.5-10.1); Chloride 103 mmol/L (98-107); Estimated GFR 43.74 (mL/min/1.73m2); Glucose 123 mg/dL (74-106); Potassium 4.6 mmol/L (3.5-5.1); Sodium 138 mmol/L (136-145); Total Protein 7.3 g/dL (6.4-8.2)
[2021-12-12 13:22] LABS: COMMENT (LAB VIEW ONLY) 225.52 mg/dL; Microalb ug/mg Crea 5.5 ug/mg Cr
[2021-12-12 13:32] LABS: Uric Acid 7.7 mg/dL (3.5-7.2)
[2021-12-12 22:53] LABS: PSA, Screening 1.1 ng/mL (0.0-4.5)
[2021-12-13 09:06] LABS: HIV-1/2 Ag & Ab Screen Negative (Negative)
[2021-12-13 09:17] LABS: Hepatitis C Ab w Rflx HCV PCR Negative (Negative)
== END 2021-12-12 02:50 | disposition home or self-care (01) ==
LOC: LBO 02:49
PROVIDERS: PCP Family Medicine; Visit Provider Family Medicine
DX: E11.9 Type 2 diabetes mellitus without complications (principal); M10.9 Gout, unspecified; Z11.59 Encounter for screening for other viral diseases; Z12.5 Encounter for screening for malignant neoplasm of prostate; I10 Essential (primary) hypertension; Z11.4 Encounter for screening for human immunodeficiency virus [HIV]
CPT/HCPCS: 36415; 80053; 84153; 86803; 87389; 82043; 82570; 84550

== ENCOUNTER 2022-07-02 02:54 | Outpatient (CLI) | payer MEDICARE, MEDICAID, SELFPAY ==
[2022-07-02 12:47] LABS: Anion Gap 6.7 mmol/L (3-11); BUN 18 mg/dL (7-18); CO2 28.3 mmol/L (21.0-32.0); CREATININE 1.3 mg/dL (0.70-1.30); Calcium 8.1 mg/dL (8.5-10.1); Chloride 107 mmol/L (98-107); Estimated GFR 61.35 (mL/min/1.73m2); Glucose 140 mg/dL (74-106); Potassium 4.6 mmol/L (3.5-5.1); Sodium 142 mmol/L (136-145)
== END 2022-07-02 02:55 | disposition home or self-care (01) ==
LOC: LOS 02:54
PROVIDERS: PCP Nurse Practitioner Family; Visit Provider Family Medicine
DX: E11.9 Type 2 diabetes mellitus without complications (principal); N18.30 Chronic kidney disease, stage 3 unspecified
CPT/HCPCS: 36415; 80048

== ENCOUNTER 2022-09-06 02:35 | Emergency (ER) | payer MEDICARE, MEDICAID, SELFPAY ==
--- NOTE | 2022-09-06 02:45 | DI.RAD_ITS ---
Exam(s) XR PORTABLE CHEST AP EXAM: XR PORTABLE CHEST AP CLINICAL HISTORY: cough. TECHNIQUE: 2D digital imaging was performed. COMPARISON: CR,XR XR PORTABLE CHEST AP from 12/20/2020 FINDINGS: Single AP portable view. Heart size is upper normal. The mediastinum is not widened. Left lung is clear. Previously present left lung infiltrate has resolved. Also improvement in the m id right lung zone infiltrate. No pleural effusions. No pneumothorax. IMPRESSION: Improvement when compared to prior chest x-ray of 12/20/2020. No new obvious infiltrates evident. DATA REPOSITORY: RADIATION DOSE DELIVERED:
[2022-09-06 02:46] VITALS: BP 176/96; PULSE 96; RESP 20; TEMP 37.5; O2SAT 96
--- NOTE | 2022-09-06 03:01 | W.ED.GENAD ---
Discharge Plan Disposition Patient Disposition: Home Condition: Stable Discharge Details Clinical Impression: Influenza Primary Care Provider: Bandar Guidry ED Provider: Delbert Manning Home Meds and New Rx's Prescriptions: New doxycycline hyclate 100 mg tablet 100 mg PO BID Qty: 14 0RF Continued cholecalciferol (vitamin D3) 50 mcg (2,000 unit) capsule 50 mcg PO DAILY Qty: 90 4RF sildenafil 25 mg tablet 25 mg PO DAILY PRN (Reason: sexual activity) Qty: 4 3RF Rx Instructions: administer 30 minutes to 4 hours before activity atorvastatin [Lipitor] 40 mg tablet 40 mg PO QPM Qty: 90 3RF metformin 500 mg tablet 500 mg PO BID Qty: 180 3RF paroxetine HCl 40 mg tablet 40 mg PO BID Qty: 180 3RF risperidone 0.25 mg tablet 0.25 mg PO HS Qty: 90 3RF buspirone 15 mg tablet 15 mg PO BID Qty: 180 3RF clonazepam 0.5 mg tablet 0.5 mg PO QHS Qty: 28 2RF Rx Instructions: administer 30 minutes before bedtime to be refilled on 03/19/22 aspirin 81 mg tablet,delayed release (DR/EC) 81 mg PO DAILY Qty: 90 4RF Discharge Instructions Instructions: Influenza (ED) Additional Instructions: You tested positive for the flu follow up with your primary care provider within 1 week if you feel more ill, have worsening trouble breathing or persistent vomiting return to the emergency department Medical Decision Making 67 yo male with hx of htn, ckd, dm, hld, who comes in with cc of cough for 2 days. He denies fevers, chills, chest pain, dyspnea. HE states the cough is intermittently prodcutive. He had covid in the past and required icu level of care so was concerned for this. He arrives stable speaking clearly in full sentences in no distress. He has clear lungs throuhgout on auscultation, no murmurs, no jvd, no leg swelling or calf tenderness. Suspect viral uri vs bronchitis, will obtain cxr and fluvid. He appears well and given reassuring exam and vitals doubt sepsis, do not feel labs other than fluvid indicated. xray negative on my read, he is positive for flu so was given xofluza. Will start doxy for possible bronchitis as well, still has oxygen saturations of 97% on room air. He is stable for d/c, advised to f/u with pcp, return precautions given Differential Diagnosis Differential Diagnosis: bronchitis, pneumonia, flu, covid Medical Records Medical records reviewed: Yes I reviewed the patient's medical records. Imaging Data Radiologic Study: Attestation: I personally reviewed and interpreted this imaging study as follows: Imaging: X-Ray My impression: no acute findings Lab Data Lab results reviewed: Yes I reviewed the patient's lab results. HPI General Mode of arrival: ambulatory. Date/Time Provider Initiated Documentation: 09/06/22 02:51. Limitations to Documentation: no limitations. Information obtained by: patient. History of Present Illness 67 year old M presents to the emergency department with the chief complaint of cough, described as moderate, Patient started experiencing this day(s) (3) and it has been constant. No relieving factors improve symptom(s), No exacerbating factors reported . Patient notes denies chest pain, fever/chills and shortness of breath. Patient did receive the following treatments prior to arrival, none Related Data Home Medications Medication Instructions Recorded Confirmed cholecalciferol (vitamin D3) 50 50 mcg PO DAILY #90 caps 07/18/21 06/06/22 mcg (2,000 unit) capsule atorvastatin 40 mg tablet (Lipitor) 40 mg PO QPM #90 tabs 09/24/21 06/06/22 metformin 500 mg tablet 500 mg PO BID #180 tab-caps 09/24/21 06/06/22 paroxetine HCl 40 mg tablet 40 mg PO BID #180 tab-caps 09/24/21 06/06/22 risperidone 0.25 mg tablet 0.25 mg PO HS #90 tabs 09/24/21 06/06/22 buspirone 15 mg tablet 15 mg PO BID fran #180 tabs 11/27/21 06/06/22 sildenafil 25 mg tablet 25 mg PO DAILY PRN sexual activity 06/06/22 06/06/22 #4 tabs clonazepam 0.5 mg tablet 0.5 mg PO QHS #28 tabs 07/01/22 aspirin 81 mg tablet,delayed 81 mg PO DAILY #90 tabs 08/14/22 release doxycycline hyclate 100 mg tablet 100 mg PO BID #14 tabs 09/06/22 Previous Rx's Medication Instructions Recorded cholecalciferol (vitamin D3) 50 50 mcg PO DAILY #90 caps 07/18/21 mcg (2,000 unit) capsule atorvastatin 40 mg tablet (Lipitor) 40 mg PO QPM #90 tabs 09/24/21 metformin 500 mg tablet 500 mg PO BID #180 tab-caps 09/24/21 paroxetine HCl 40 mg tablet 40 mg PO BID #180 tab-caps 09/24/21 risperidone 0.25 mg tablet 0.25 mg PO HS #90 tabs 09/24/21 buspirone 15 mg tablet 15 mg PO BID fran #180 tabs 11/27/21 sildenafil 25 mg tablet 25 mg PO DAILY PRN sexual activity 06/06/22 #4 tabs clonazepam 0.5 mg tablet 0.5 mg PO QHS #28 tabs 07/01/22 aspirin 81 mg tablet,delayed 81 mg PO DAILY #90 tabs 08/14/22 release doxycycline hyclate 100 mg tablet 100 mg PO BID #14 tabs 09/06/22 Allergies Allergy/AdvReac Type Severity Reaction Status Date / Time No Known Allergies Allergy Verified 06/06/22 10:04 General Stated Complaint: RespSymp ROMMEL: 3 Review of Systems All systems reviewed & are unremarkable except as noted in HPI and below Constitutional Constitutional: Denies chills, Denies fever(s) and Denies weakness Cardiovascular Cardiovascular: Denies chest pain and Denies dyspnea Respiratory Respiratory: Denies dyspnea Gastrointestinal Gastrointestinal: Denies abdominal pain, Denies nausea and Denies vomiting Musculoskeletal Musculoskeletal: Denies joint swelling Integumentary/Breasts Skin/Breast: Denies rash Neurologic Neurologic: Denies weakness PFSH All Active Problems (Updated 09/06/22 @ 04:26 by Delbert Manning MD) Influenza (Acute) Gout (Chronic) Chronic kidney disease, stage 3 (Acute) 11/2021, Cr-1.6 Essential hypertension (Acute) Anxiety (Chronic) 08/2021-chronic clonazepam use, drug contract with [facility] Gout (Chronic) 01/2022, uric acid-7.7 Parkinsonism (Acute) Likely secondary to risperidone use Essential tremor (Acute) Vitamin D deficiency (Acute) Obsessive compulsive disorder (Chronic) Parkinsonian syndrome (Paxil) Overweight (Acute) Hyperlipidemia (Acute) Diabetes mellitus (Chronic 06/03/12) no retinopathy -2015 no neuropathy Medical History (Updated 09/06/22 @ 04:26 by Delbert Manning MD) Acute respiratory failure with hypoxia COVID-19 Pneumonia due to severe acute respiratory syndrome coronavirus 2 (SARS-CoV-2) 2020, recovered without sequalae Family History Mother , age 73? Essential hypertension Diabetes Heart disease Hyperlipidemia Father , age 55? Melanoma Brother Hyperlipidemia Diabetes Maternal Grandfather No problems noted. Maternal Grandmother No problems noted. Paternal Grandmother No problems noted. Sister Diabetes Hyperlipidemia Paternal Grandfather No problems noted. Social History (Updated 06/13/22 @ 13:34 by Minerva Miller) Smoking/Tobacco Use Status: Never Second Hand Exposure: Yes Smoking risk assessment performed?: Yes Alcohol Intake: current Alcohol Intake frequency: a few times a month Alcohol type: beer Drug use: Never Substance use type: does not use Caregiver/Support person: No Household members: none Housing: house Communication Needs: None Do you need help understanding health information?: Never Pets and animals: Yes Pets and animals: dog(s) Sexually active: No Do you think of yourself as: straight/heterosexual Current gender identity: male What is your relationship status?: never How often do you talk on the phone with friends or family?: three or more times per week How often do you get together with friends or relatives?: three or more times per week How often do you attend uatsdin or adventism services?: 1-3 times per year Do you belong to any clubs or organized social groups?: yes Panel score (0-1 are the most socially isolated patients): 2 What type of physical activity do you participate in: walking Duration: 60-90 minutes/day Frequency: 5-6 times per week Becka/Restoration: Taoism Special becka needs: No Seatbelt use: sometimes Helmet use: Yes Helmet use: always Drive intox or ride w/intox parcel post truck driver: No Do you feel safe at home: Yes Do you feel safe in your relationship?: Yes Exam Const General: no acute distress Orientation: alert HENMD Head: normal to inspection Ears: external ears normal General nose exam: external nose normal Mouth: moist mucous membranes Eyes General: appearance normal, both eyes and all related structures Neck Neck: normal visual inspection Resp Effort & Inspection: normal respiratory effort and able to speak in complete sentences Auscultation: clear to auscultation bilaterally Cardio Rate: regular rate Heart Sounds: no murmurs Skin General skin exam: no rashes or lesions noted Neuro General: patient alert and patient oriented x3 Extrem General: normal to inspection Psych Mental Status: mental status grossly normal Course Vital Signs Vital signs: Vital Signs Temperature 37.5 C 09/06/22 02:46 Pulse 96 H 09/06/22 02:46 Respiratory Rate 20 09/06/22 02:46 Blood Pressure 176/96 H 09/06/22 02:46 Pulse Oximetry 96 09/06/22 02:46 Temperature 37.5 C 09/06/22 02:46 Temperature Source Oral 09/06/22 02:46 Pulse 96 H 09/06/22 02:46 Respiratory Rate 20 09/06/22 02:46 Respiratory Effort 09/06/22 02:50 Respiratory Depth Normal 09/06/22 02:50 Blood Pressure 176/96 H 09/06/22 02:46 Blood Pressure Position Sitting 09/06/22 02:46 Pulse Oximetry 96 09/06/22 02:46 Oxygen Delivery Method Room Air 09/06/22 02:46 Oxygen Flow Rate 0 09/06/22 02:46 Pain Level 5 09/06/22 02:46
[2022-09-06 03:43] LABS: COVID-19 PCR Negative (Negative); Influenza A PCR Positive (Negative); Influenza B PCR Negative (Negative); RSV PCR Negative (Negative)
[2022-09-06 04:05] LABS: Source Nasopharynx
[2022-09-06] MEDS: Doxycycline Hyclate 100 MG CAP PO (04:42)
[2022-09-06 04:47] VITALS: BP 126/86; PULSE 88; RESP 20; TEMP 37; O2SAT 96
--- NOTE | 2022-09-06 04:49 | DI.VRAD_ITS ---
PROCEDURE INFORMATION: Exam: XR Chest Exam date and time: 09/06/2022 2:49 AM Age: 67 years old Clinical indication: Cough TECHNIQUE: Imaging protocol: Radiologic exam of the chest. Views: 1 view. COMPARISON: XR PORTABLE CHEST AP 12/20/2020 6:11 PM FINDINGS: Lungs: Unremarkable. No consolidation. Pleural spaces: Unremarkable. No pleural effusion. No pneumothorax. Heart/Mediastinum: Unremarkable. No cardiomegaly. Bones/joints: Unremarkable. IMPRESSION: No acute findings. Dictated and Authenticated by: Maykel Issa MD. Ordering:GRICELDA Mandujano MD
== END 2022-09-06 04:47 | disposition home or self-care (01) ==
PROVIDERS: Emergency Provider Emergency Medicine; PCP Nurse Practitioner Family
DX: J10.1 Influenza due to other identified influenza virus with other respiratory manifestations (principal); E11.22 Type 2 diabetes mellitus with diabetic chronic kidney disease; I12.9 Hypertensive chronic kidney disease with stage 1 through stage 4 chronic kidney disease, or unspecified chronic kidney disease; N18.9 Chronic kidney disease, unspecified; E78.5 Hyperlipidemia, unspecified; Z86.16 Personal history of COVID-19; Z20.822 Contact with and (suspected) exposure to COVID-19
CPT/HCPCS: 87637; 99283; 99284; 71045

== ENCOUNTER 2022-12-12 20:18 | Outpatient (REF) | payer MEDICARE, MEDICAID, SELFPAY ==
[2022-12-12 22:15] LABS: COMMENT (LAB VIEW ONLY) 135.49 mg/dL; Microalb ug/mg Crea 5.2 ug/mg Cr
== END 2022-12-12 20:19 | disposition home or self-care (01) ==
LOC: LBN 20:18
PROVIDERS: PCP Nurse Practitioner Family; Visit Provider Nurse Practitioner Family
DX: E11.9 Type 2 diabetes mellitus without complications (principal)
CPT/HCPCS: 82043; 82570

== ENCOUNTER → 2023-01-21 11:08 | Outpatient (BNVA) | payer MEDICARE, MEDICAID, SELFPAY | PROVIDERS: PCP Nurse Practitioner Family; Visit Provider Psychiatry & Neurology Neurology | DX: G25.0 Essential tremor (principal); G20 Parkinson's disease | CPT/HCPCS: 99213 ==

== ENCOUNTER 2023-02-12 21:54 | Emergency (ER) | payer MEDICARE, MEDICAID, SELFPAY ==
--- NOTE | 2023-02-12 22:00 | DI.RAD_ITS ---
Exam(s) XR WRIST RT COMPLETE EXAM: XR WRIST RT COMPLETE CLINICAL HISTORY: Pain x10 days post arm wrestling. TECHNIQUE: 2D digital imaging was performed of the right wrist. Three views were obtained. PA, lat eral and oblique views were obtained. COMPARISON: No exams were available for comparison FINDINGS: BONES: No acute fracture is present. No bony destructive lesion is seen. JOINTS: The carpal bones are normally aligned. The joint spaces are well maintained. SOFT TISSUE: Normal. IMPRESSION: Unremarkable radiographs of the right wrist. DATA REPOSITORY: RADIATION DOSE DELIVERED:
[2023-02-12 22:02] VITALS: BP 172/105; PULSE 82; RESP 18; TEMP 36.8; O2SAT 98
--- NOTE | 2023-02-12 22:36 | DI.VRAD_ITS ---
PROCEDURE INFORMATION: Exam: XR Right Wrist Exam date and time: 02/12/2023 10:16 PM Age: 67 years old Clinical indication: Wrist; Right; Patient HX: Pain x 10 days post arm wrestling TECHNIQUE: Imaging protocol: Radiologic exam of the right wrist. Views: 3 or more views. COMPARISON: No relevant prior studies available. FINDINGS: Bones/joints: Normal. Soft tissues: Normal. IMPRESSION: No acute findings. Dictated and Authenticated by: Sushil Quintana MD. Ordering:BILLY Hartmann MD
--- NOTE | 2023-02-12 22:44 | ED.GENADUL_ITS ---
Discharge Plan Disposition Patient Disposition: Home Discharge Details Clinical Impression: Strain of right wrist Primary Care Provider: Bandar Guidry ED Provider: Mary Kate Trejo Home Meds and New Rx's Prescriptions: Continued buspirone 15 mg tablet 15 mg PO BID Qty: 180 3RF sildenafil 100 mg tablet 100 mg PO DAILY PRN (Reason: sexual activity) Qty: 2 5RF Rx Instructions: administer 30 minutes to 4 hours before activity aspirin 81 mg tablet,delayed release (DR/EC) 81 mg PO DAILY Qty: 90 4RF risperidone 0.25 mg tablet 0.25 mg PO HS Qty: 90 3RF cholecalciferol (vitamin D3) 50 mcg (2,000 unit) capsule 50 mcg PO DAILY Qty: 90 4RF paroxetine HCl 40 mg tablet 40 mg PO BID Qty: 180 3RF metformin 500 mg tablet 500 mg PO BID Qty: 180 3RF atorvastatin [Lipitor] 40 mg tablet 40 mg PO QPM Qty: 90 3RF clonazepam 0.5 mg tablet 0.5 mg PO QHS Qty: 28 2RF Rx Instructions: administer 30 minutes before bedtime Discharge Instructions Additional Instructions: Please rest your wrist, you may take Tylenol as needed for pain You may use your wrist brace as needed for comfort You may apply Voltaren gel and rub it into the wound Return earlier should you have new or worsening complaints Referrals: Bandar Guidry, [employer] [Primary Care Provider] - Discharge Data Discharge Date/Time-TO BE ENTERED AT DEPARTURE: 02/12/23 23:40 Medical Decision Making Right wrist with tenderness and swelling, x-ray without acute abnormality Placed in a wrist splint Motrin and Tylenol as needed for pain We will have blood pressure rechecked by primary care physician, no symptoms associated with hypertension Return precautions reviewed and patient expressed understanding Follow-up with PCP with persistent right wrist pain HPI General Date/Time Provider Initiated Documentation: 02/12/23 22:05 . HPI Narrative: This 67-year-old male presents with right wrist pain for the past 10 days. Denies any additional complaints at this time. States he injured his arm wrestling 10 days ago. Denies fever or chills Related Data Home Medications Medication Instructions Recorded Confirmed aspirin 81 mg tablet,delayed 81 mg PO DAILY #90 tabs 08/14/22 01/21/23 release risperidone 0.25 mg tablet 0.25 mg PO HS #90 tabs 09/25/22 01/21/23 cholecalciferol (vitamin D3) 50 50 mcg PO DAILY #90 caps 10/17/22 01/21/23 mcg (2,000 unit) capsule paroxetine HCl 40 mg tablet 40 mg PO BID #180 tab-caps 10/17/22 01/21/23 metformin 500 mg tablet 500 mg PO BID #180 tab-caps 11/04/22 01/21/23 buspirone 15 mg tablet 15 mg PO BID fran #180 tabs 12/12/22 01/21/23 sildenafil 100 mg tablet 100 mg PO DAILY PRN sexual 12/12/22 01/21/23 activity #2 tabs atorvastatin 40 mg tablet (Lipitor) 40 mg PO QPM #90 tabs 12/19/22 01/21/23 clonazepam 0.5 mg tablet 0.5 mg PO QHS #28 tabs 01/09/23 01/21/23 Previous Rx's Medication Instructions Recorded aspirin 81 mg tablet,delayed 81 mg PO DAILY #90 tabs 08/14/22 release risperidone 0.25 mg tablet 0.25 mg PO HS #90 tabs 09/25/22 cholecalciferol (vitamin D3) 50 50 mcg PO DAILY #90 caps 10/17/22 mcg (2,000 unit) capsule paroxetine HCl 40 mg tablet 40 mg PO BID #180 tab-caps 10/17/22 metformin 500 mg tablet 500 mg PO BID #180 tab-caps 11/04/22 buspirone 15 mg tablet 15 mg PO BID fran #180 tabs 12/12/22 sildenafil 100 mg tablet 100 mg PO DAILY PRN sexual 12/12/22 activity #2 tabs atorvastatin 40 mg tablet (Lipitor) 40 mg PO QPM #90 tabs 12/19/22 clonazepam 0.5 mg tablet 0.5 mg PO QHS #28 tabs 01/09/23 Allergies Allergy/AdvReac Type Severity Reaction Status Date / Time No Known Allergies Allergy Verified 01/21/23 11:32 General Stated Complaint: Orthopedic ROMMEL: 4 PFSH All Active Problems (Updated 02/12/23 @ 22:46 by TREMAINE Delgadillo) Strain of right wrist (Acute) Gout (Chronic) Chronic kidney disease, stage 3 (Acute) 11/2021, Cr-1.6 Essential hypertension (Acute) Anxiety (Chronic) 08/2021-chronic clonazepam use, drug contract with [facility] Gout (Chronic) 01/2022, uric acid-7.7 Parkinsonism (Acute) Likely secondary to risperidone use Essential tremor (Acute) Vitamin D deficiency (Acute) Obsessive compulsive disorder (Chronic) Parkinsonian syndrome (Paxil) Overweight (Acute) Hyperlipidemia (Acute) Diabetes mellitus (Chronic 06/03/12) no retinopathy -2015 no neuropathy Medical History (Updated 02/12/23 @ 22:46 by TREMAINE Delgadillo) Acute respiratory failure with hypoxia COVID-19 Pneumonia due to severe acute respiratory syndrome coronavirus 2 (SARS-CoV-2) 2020, recovered without sequalae Family History Mother , age 73? Essential hypertension Diabetes Heart disease Hyperlipidemia Father , age 55? Melanoma Brother Hyperlipidemia Diabetes Maternal Grandfather No problems noted. Maternal Grandmother No problems noted. Paternal Grandmother No problems noted. Sister Diabetes Hyperlipidemia Paternal Grandfather No problems noted. Social History (Updated 06/13/22 @ 13:34 by Minerva Miller) Smoking/Tobacco Use Status: Never Second Hand Exposure: Yes Smoking risk assessment performed?: Yes Alcohol Intake: current Alcohol Intake frequency: a few times a month Alcohol type: beer Drug use: Never Substance use type: does not use Caregiver/Support person: No Household members: none Housing: house Communication Needs: None Do you need help understanding health information?: Never Pets and animals: Yes Pets and animals: dog(s) Sexually active: No Do you think of yourself as: straight/heterosexual Current gender identity: male What is your relationship status?: never How often do you talk on the phone with friends or family?: three or more times per week How often do you get together with friends or relatives?: three or more times per week How often do you attend confucianism or christian services?: 1-3 times per year Do you belong to any clubs or organized social groups?: yes Panel score (0-1 are the most socially isolated patients): 2 What type of physical activity do you participate in: walking Duration: 60-90 minutes/day Frequency: 5-6 times per week Becka/Jainism: Taoism Special becka needs: No Seatbelt use: sometimes Helmet use: Yes Helmet use: always Drive 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 Do you feel safe at home: Yes Do you feel safe in your relationship?: Yes Exam Narrative Exam Narrative: Right wrist with swelling, mild tenderness, neurovascularly intact, no tenderness to right elbow Course Vital Signs Vital signs: Vital Signs Temperature 36.8 C 02/12/23 22:02 Pulse 82 02/12/23 22:02 Respiratory Rate 18 02/12/23 22:02 Blood Pressure 172/105 H 02/12/23 22:02 Pulse Oximetry 98 02/12/23 22:02 Temperature 36.8 C 02/12/23 22:02 Temperature Source Oral 02/12/23 22:02 Pulse 82 02/12/23 22:02 Respiratory Rate 18 02/12/23 22:02 Respiratory Effort Normal, Non-Labored 02/12/23 22:09 Blood Pressure 172/105 H 02/12/23 22:02 Blood Pressure Position Sitting 02/12/23 22:02 Pulse Oximetry 98 02/12/23 22:02 Oxygen Delivery Method Room Air 02/12/23 22:02 Oxygen Flow Rate 0 02/12/23 22:02 Pain Level 4 02/12/23 22:02
== END 2023-02-12 23:40 | disposition home or self-care (01) ==
PROVIDERS: Emergency Provider Physician Assistant; PCP Nurse Practitioner Family
DX: S69.81XA Other specified injuries of right wrist, hand and finger(s), initial encounter (principal); X58.XXXA Exposure to other specified factors, initial encounter; Y93.72 Activity, wrestling
CPT/HCPCS: 99283; 73110

== ENCOUNTER → 2023-03-06 08:31 | Outpatient (BNVA) | payer MEDICARE, MEDICAID, SELFPAY | PROVIDERS: PCP Nurse Practitioner Family; Referring Provider Nurse Practitioner Family; Visit Provider Physical Therapy Assistant | DX: Z12.11 Encounter for screening for malignant neoplasm of colon (principal) ==

== ENCOUNTER 2023-03-17 06:51 | Day surgery (SDC) | payer MEDICARE, MEDICAID, SELFPAY ==
--- NOTE | 2023-03-16 19:12 | W.PM.DSUDISC ---
Date of service: 03/17/23 Time of Service: 09:18 Discharge Plan Disposition Patient Disposition: Home Condition: Good Discharge Details Reason For Visit: Screening colonoscopy Attending Provider: Justin Coelho Primary Care Provider: Bandar Guidry Home Meds and New Rx's Prescriptions: Continued buspirone 15 mg tablet 15 mg PO BID Qty: 180 3RF sildenafil 100 mg tablet 100 mg PO DAILY PRN (Reason: sexual activity) Qty: 2 5RF Rx Instructions: administer 30 minutes to 4 hours before activity aspirin 81 mg tablet,delayed release (DR/EC) 81 mg PO DAILY Qty: 90 4RF risperidone 0.25 mg tablet 0.25 mg PO HS Qty: 90 3RF cholecalciferol (vitamin D3) 50 mcg (2,000 unit) capsule 50 mcg PO DAILY Qty: 90 4RF paroxetine HCl 40 mg tablet 40 mg PO BID Qty: 180 3RF metformin 500 mg tablet 500 mg PO BID Qty: 180 3RF atorvastatin [Lipitor] 40 mg tablet 40 mg PO QPM Qty: 90 3RF clonazepam 0.5 mg tablet 0.5 mg PO QHS Qty: 28 2RF Rx Instructions: administer 30 minutes before bedtime Discontinued bisacodyl [Dulcolax (bisacodyl)] 5 mg tablet,delayed release (DR/EC) 5 mg PO ONCE Qty: 4 0RF Rx Instructions: Take per colonoscopy instructions provided by ordering providers office polyethylene glycol 3350 17 gram/dose powder 17 g PO ONCE Qty: 238 0RF Rx Instructions: Take per colonoscopy instructions provided by ordering providers office Discharge Instructions Additional Instructions: Which, we were able to complete the colonoscopy today without any difficulty. It was negative. You should undergo your next colonoscopy in 10 years. 1. If tolerated, consume a soft, low fiber diet for 1-2 days. [address] Do not drive, drink alcohol, operate machinery, make critical decisions, or do activities that require coordination or balance for 24 hours. 3. Because air was put into your colon during the procedure, expelling air from your rectum (passing gas or farting) is normal. 4. You may not have a bowel movement for 1-3 days because of the colonoscopy prep. This is normal. 5. Go directly to the emergency room if you notice any of the following: Develop chills (warm to touch), or if you have a thermometer and your temperature is above 101 Difficulty breathing or difficultly swallowing Persistent vomiting Severe abdominal pain, other than gas cramps Severe chest pain Black, tarry stools Any bleeding ? exceeding one tablespoon 6. Call your physician if the site where your intravenous was started becomes red, swollen, painful, and warm to touch. 7. Your physician has reviewed your pre-procedure medications. Please continue to take those medications as previously ordered. You will be given specific information/education regarding any changes to your medications before leaving. Activity:: Activity as Tolerated Diet:: As Tolerated Discharge Orders Discharge Orders: Discharge Order (Routine); Ordered 03/16/23 Ordered By: Justin Coelho DS: Diagnosis Discharge Diagnosis (1) Screen for colon cancer: Status: Acute Asessment and Plan: Negative screening colonoscopy. He should consider another one in 10 years
--- NOTE | 2023-03-16 19:14 | W.COLOREPORT ---
Date of service: 03/17/23 Time of Service: 09:19 Colonoscopy Report Date of procedure: 03/17/23 Pre-op diagnosis general: screening colonoscopy Post-op diagnosis procedure note: same Procedure: Colonoscopy Surgeon: Justin Coelho Anesthesia Type: General:No Airway Estimated blood loss (mL): 0 Pathology: none sent Complications: None Disposition: same day Indications: Jorge is a 67 year old man here for his second screening colonoscopy Prep: Miralax/Dulcolax Procedure Start Time: 08:43 Procedure End Time: 09:00 Retraction Time: 11 Findings: Negative screening colonoscopy Procedure Description: After the induction of monitored anesthetic care, and with the patient in left lateral decubitus position, I began by performing an external anorectal exam.? Perineum and skin were normal, as was the anal verge.? There was no evidence of external hemorrhoids.? Next, I performed a digital rectal exam.? I did not appreciate any abnormal findings.? Next, I advanced a colonoscope into the rectal vault.? I performed retroflexion.? This was normal.? Using insufflation, I then advanced the colonoscope beyond the rectal folds and into the sigmoid colon before advancing towards the cecum.? The quality of the prep was adequate.? The scope was noted to be in the cecum by identification of the ileocecal valve and appendiceal orifice.? I then began withdrawing the colonoscope using repeated irrigation as necessary for full evaluation of the colonic mucosa. ?Once the scope was withdrawn to the level of the rectum, great care was taken to examine portions of the rectal folds.? I saw no evidence of any tumors or polyps. finally, the scope was withdrawn and the patient was brought to the same-day surgery recovery unit as the anesthetic wore off. ?The findings and instructions were shared with the patient prior to discharge.
[2023-03-17 07:08] VITALS: BP 132/88; PULSE 72; RESP 20; TEMP 36.6; O2SAT 98
[2023-03-17] MEDS: Lactated Ringers 1,000 ML 80 ML IV (07:25)
--- NOTE | 2023-03-17 08:25 | W.ANESPRE ---
General Info Date of Service Date Performed: 03/17/23 Height: 5 ft 11 in Weight: 109.8 kg Body Mass Index (BMI): 33.7 Surgical Procedure: Operation Date: 03/17/23 08:20 Proposed Procedure Side Surgeon sabas Coelho MD Meds Allergies and Home Medications Allergies Allergy/AdvReac Type Severity Reaction Status Date / Time No Known Allergies Allergy Verified 03/06/23 08:40 Home Medication Medication Instructions Recorded aspirin 81 mg tablet,delayed 81 mg PO DAILY #90 tabs 08/14/22 release risperidone 0.25 mg tablet 0.25 mg PO HS #90 tabs 09/25/22 cholecalciferol (vitamin D3) 50 50 mcg PO DAILY #90 caps 10/17/22 mcg (2,000 unit) capsule paroxetine HCl 40 mg tablet 40 mg PO BID #180 tab-caps 10/17/22 metformin 500 mg tablet 500 mg PO BID #180 tab-caps 11/04/22 buspirone 15 mg tablet 15 mg PO BID fran #180 tabs 12/12/22 sildenafil 100 mg tablet 100 mg PO DAILY PRN sexual 12/12/22 activity #2 tabs atorvastatin 40 mg tablet (Lipitor) 40 mg PO QPM #90 tabs 12/19/22 clonazepam 0.5 mg tablet 0.5 mg PO QHS #28 tabs 01/09/23 Current Visit Medications: Current Medications Generic Name Dose Route Start Last Admin Trade Name Freq PRN Reason Stop Dose Admin Hyoscyamine Sulfate 0.125 mg 03/16/23 19:15 Hyoscyamine 0.125 Mg Sl/Oral/Chew SL 04/15/23 19:14 DIRECTED PRN Ringer's Solution 1,000 mls @ 80 mls/hr 03/17/23 06:00 03/17/23 07:25 IV 03/17/23 23:59 80 mls/hr INFUSION MAISHA Administration IV Miscellaneous Supplies 1 each 03/17/23 06:00 Iv Access IV 03/17/23 23:59 DIRECTED MAISHA Ondansetron HCl 4 mg 03/16/23 19:15 Ondansetron 4 Mg/2 Ml Vial IVP 04/15/23 19:14 Q4H PRN PRN Nausea / Vomiting Sodium Chloride 0 ml 03/17/23 06:00 Normal Saline Flush 10 Ml Syr IV 03/17/23 23:59 PRN PRN Sodium Chloride 0 ml 03/17/23 06:00 Normal Saline 10 Ml Vial IJ 03/17/23 23:59 DIRECTED PRN Sterile Water 0 ml 03/17/23 06:00 Water,Injection,Sterile 10 Ml Vial IJ 03/17/23 23:59 DIRECTED PRN PFSH Active Problems Active Problems: Problem Status Onset Code Screen for colon cancer Z12.11 Diabetes mellitus 06/03/12 E11.9 Hyperlipidemia E78.5 Overweight E66.3 Obsessive compulsive disorder F42.9 Gout M10.9 Vitamin D deficiency E55.9 Essential tremor G25.0 Parkinsonism G20 Gout M10.9 Anxiety F41.9 Essential hypertension I10 Chronic kidney disease, stage 3 N18.30 Medical History Medical History Acute respiratory failure with hypoxia COVID-19 Pneumonia due to severe acute respiratory syndrome coronavirus 2 (SARS-CoV-2) 2020, recovered without sequalae Surgical History Surgical History History of colonoscopy Tobacco Smoking/Tobacco Use Status: Never Passive smoking exposure: No Second hand exposure: Yes Alcohol Alcohol Intake: current Alcohol intake frequency: a few times a month Alcohol type: beer Substance Use Substance use: Never Substance use type: does not use Details: alcohol: t-10 Vital Signs and Lab Results Vital Signs Most Recent Vital Signs in EMR: Most Recent Vital Signs Temp Pulse Resp BP Pulse Ox 36.6 C 72 20 132/88 98 03/17/23 07:08 03/17/23 07:08 03/17/23 07:08 03/17/23 07:08 03/17/23 07:08 Point of Care Results Point of Care Results: Finger Stick Blood Glucose 113 03/17/23 07:25 Lab Results Blood Type / Crossmatch: No Data to Display Complete Blood Count: No Data to Display Complete Metabolic Panel: No Data to Display Liver Function Panel: No Data to Display Coagulation Panel: No Data to Display Cardiac Panel: No Data to Display Arterial Blood Gas: No Data to Display Venous Blood Gas: No Data to Display Pancreas Panel: No Data to Display Thyroid Panel: No Data to Display Infectious Disease: No Data to Display Blood Cultures: No Data to Display Toxicology Panel: No Data to Display Anesthesia Assessment and Plan Anesthesia History Personal History: No History of Anesthesia Complications Family History: No Family History of Anesthesia Complications Exercise Tolerance Exercise Tolerance: Metabolic Equivalents>4 Pertinent Negatives Pertinent Negatives: No Major Cardiovascular Symptoms or Complaints and No Major Pulmonary Symptoms or Complaints Cardiac & Pulmonary Exam Cardiac Exam: Normal S1/S2 Heart Sounds Pulmonary Exam: Clear Bilateral Breath Sounds Implantable Cardiac Device Does patient have a Pacemaker or an ICD?: No Airway Exam Known Difficult Airway: No Mallampati Class: 3 Mouth Opening: Normal (> 3cm) Thyromental Distance: Greater than 3 cm Neck Range of Motion: Full ROM Neck Circumference: Normal Teeth Condition: Removable Dentures/Plates Upper ASA Classification ASA Score: ASA 2 Emergency Case?: No NPO Status NPO Status: NPO Clears >2 hours, Solids >8 hours Anesthesia Plan Resuscitation Status: Full Code Anesthesia Technique: General Anesthesia Airway Planned: Natural Airway Monitors Used: Standard Monitors
[2023-03-17 08:28] VITALS: BMI 33.7
[2023-03-17 09:15] VITALS: BP 131/90; PULSE 68; RESP 16; TEMP 36.2; O2SAT 93
--- NOTE | 2023-03-17 09:16 | W.ANESPOSTOP ---
Postoperative Evaluation Date, Time and Location Date Performed: 03/17/23 Time Performed: 09:34 Patient Location: Day Surgery Unit Vital Signs Most Recent Imported Vital Signs: Most Recent Vital Signs Temp Pulse Resp BP Pulse Ox 36.6 C 72 20 132/88 98 03/17/23 07:08 03/17/23 07:08 03/17/23 07:08 03/17/23 07:08 03/17/23 07:08 Pain Score Most Recent Pain Score: Most Recent Pain Score Pain Level 0 03/17/23 07:08 Assessment Mental Status: Awake (Alert & Oriented to Patient Baseline) Airway and Respiratory Function: Patent airway with normal (patient baseline) respiratory exam Cardiovascular Function: Hemodynamically Stable Hydration Status: Adequately Hydrated Nausea & Vomiting: No Nausea or Vomiting Pain: Pt. Denies Any Pain Peripheral Nerve Block: Patient did not receive a nerve block
[2023-03-17 09:45] VITALS: BP 137/84; PULSE 60; RESP 16; TEMP 36.6; O2SAT 96
== END 2023-03-17 09:45 | disposition home or self-care (01) ==
PROVIDERS: PCP Nurse Practitioner Family; Visit Provider Surgery
PROC: 0DJD8ZZ Inspection of Lower Intestinal Tract, Via Natural or Artificial Opening Endoscopic (ICD-10-PCS; CPT 45378; principal; 2023-03-17 08:15)
DX: Z12.11 Encounter for screening for malignant neoplasm of colon (principal); E11.9 Type 2 diabetes mellitus without complications
CPT/HCPCS: G0121; J2001

== ENCOUNTER 2023-06-20 03:17 | Outpatient (CLI) | payer MEDICARE, MEDICAID, SELFPAY ==
[2023-06-20 12:51] LABS: Anion Gap 8.8 mmol/L (3-11); BUN 17 mg/dL (7-18); CO2 26.2 mmol/L (21.0-32.0); CREATININE 1.3 mg/dL (0.70-1.30); Calcium 9.3 mg/dL (8.5-10.1); Calculated LDL 53 mg/dL (<100); Chloride 102 mmol/L (98-107); Cholesterol 126 mg/dL (<200); Estimated GFR 60.96 (mL/min/1.73m2); Glucose 126 mg/dL (74-106); HDL Cholesterol 46 mg/dL (40-60); Potassium 4.6 mmol/L (3.5-5.1); Sodium 137 mmol/L (136-145); Triglyceride 135 mg/dL (<150)
== END 2023-06-20 03:18 | disposition home or self-care (01) ==
LOC: LOS 03:24
PROVIDERS: PCP Nurse Practitioner Family; Visit Provider Nurse Practitioner Family
DX: I10 Essential (primary) hypertension (principal); E78.5 Hyperlipidemia, unspecified
CPT/HCPCS: 36415; 80048; 80061

== ENCOUNTER 2023-11-24 16:39 | Emergency (ER) | payer MEDICARE, MEDICAID, SELFPAY ==
[2023-11-24 16:42] VITALS: BP 177/95; PULSE 71; RESP 22; TEMP 36.4; O2SAT 98
--- NOTE | 2023-11-24 17:15 | DI.CT_ITS ---
Exam(s) CT ABDOMEN PELVIS WO EXAM: CT ABDOMEN PELVIS WO CLINICAL HISTORY: left flank pain. TECHNIQUE: Imaging Protocol: Axial computed tomography images with coronal and sagittal reformatted images were created and reviewed. COMPARISON: CT CT CHEST PE CTA from 12/20/2020 FINDINGS: ABDOMEN: Lung Bases: Pulmonary fibrotic changes are seen in the periphery of the lung bases. Liver: There is diffuse decreased attenuation of the liver consistent with fatty infiltration. No me asurable mass. Gallbladder and biliary tract: No radiodense calculus or biliary ductal dilation. Pancreas: Normal density, no abnormal calcifications or inflammatory process. Spleen: Normal. Kidneys: Normal size, contour and axis.No radiodense stones or obstructive uropathy. No masses seen. Left renal cyst. Adrenal glands: No mass is seen. Lymph nodes: Within normal limits. Abdominal Aorta: Abdominal portion non-dilated. PELVIS: Bladder:Symmetric distention, no gross wall thickening. Bowel: No obstruction or bowel wall thickening. No evidence of appendicitis. Peritoneal cavity: No ascites, collection or mesenteric inflammatory response. No free air. Reproductive organs: Unremarkable as visualized. Bones: Within normal limits for the patient's age. Soft Tissues: Within normal limits. IMPRESSION: 1. There is no evidence of nephrolithiasis or hydronephrosis. 2. Fatty infiltration of the liver. RADIATION DOSE DELIVERED: Total DLP DATA REPOSITORY: All CT scans at this facility are submitted to the National Radiology Data Registry (NRDR) Dose Index Registry (DIR) with the [employer] (ACR). RADIATION OPTIMIZATION: All CT scans at this facility use at least one of these dose optimization te chniques: automated exposure control; mA and/or kV adjustment per patient size (includes targeted exa ms where dose is matched to clinical indication); or iterative reconstruction.
[2023-11-24 17:39] LABS: Abs Immature Grans 0.05 10^3/uL (0.0-0.06); Absolute Basophil Count 0.03 10^3/uL (0.0-0.2); Absolute Eosinophil Count 0.09 10^3/uL (0.0-0.7); Absolute Lymphocyte Count 0.94 10^3/uL (1.2-3.4); Absolute Monocyte Count 0.43 10^3/uL (0.1-0.8); Absolute Neutrophil Count 5.94 10^3/uL (1.2-6.7); Basophils % 0.4; Eosinophils % 1.2; HCT 40.3 % (40.0-50.0); HGB 13.6 g/dL (13.5-17.5); Immature Grans % 0.7; Lymphocytes % 12.6; MCHC 33.7 % (32.0-36.0); MCV 92 fL (80-95); MPV 9.5 fL (8.0-11.0); Monocytes % 5.7; Neutrophils % 79.4; Platelet Count 228 10^3/uL (130-400); RBC 4.39 10^6/uL (4.36-5.78); RDW 12.5 % (11.8-14.1); RDW-SD 42.3 fL; WBC 7.48 10^3/uL (4.4-10.8)
[2023-11-24 17:59] LABS: ALT 31 U/L (16-63); AST 17 U/L (15-37); Alkaline Phosphatase 86 U/L (46-116); Anion Gap 10.1 mmol/L (3-11); BUN 12 mg/dL (7-18); Bilirubin, Total 0.4 mg/dL (0.2-1.0); CO2 25.9 mmol/L (21.0-32.0); CREATININE 1.4 mg/dL (0.70-1.30); Calcium 8.9 mg/dL (8.5-10.1); Chloride 101 mmol/L (98-107); Estimated GFR 55.43 (mL/min/1.73m2); Glucose 212 mg/dL (74-106); Lipase 57 U/L (16-77); Potassium 4.4 mmol/L (3.5-5.1); Sodium 137 mmol/L (136-145); Total Protein 7.2 g/dL (6.4-8.2)
[2023-11-24 18:55] LABS: Bilirubin Negative (Negative); Blood Trace-intact (Negative); Clarity Clear (Clear); Glucose 250 mg/dL (Negative); Ketones Negative (Negative); Leukocyte Esterase Negative (Negative); Nitrite Negative (Negative); Urobilinogen 0.2 mg/dL (Up to 0.2)
[2023-11-24 19:05] LABS: Bacteria Rare HPF (Negative); C & S Indicated? No/Sq. Contamination; Casts Negative LPF (Negative); Crystals Negative HPF (Negative); Epithelial Cells Moderate HPF (Negative); Mucus Negative (Negative); RBC 0-2 HPF (0-2); WBC 0-2 HPF (0-5)
--- NOTE | 2023-11-24 20:31 | W.ED.GENAD ---
Discharge Plan Disposition Patient Disposition: Home Discharge Details Clinical Impression: Back pain Primary Care Provider: Bandar Guidry ED Provider: Mary Kate Trejo Home Meds and New Rx's Prescriptions: Continued cholecalciferol (vitamin D3) 50 mcg (2,000 unit) capsule 50 mcg PO DAILY Qty: 90 4RF metformin 500 mg tablet 500 mg PO BID Qty: 180 3RF atorvastatin [Lipitor] 40 mg tablet 40 mg PO QPM Qty: 90 3RF sildenafil 100 mg tablet 100 mg PO DAILY PRN (Reason: sexual activity) Qty: 2 5RF Rx Instructions: administer 30 minutes to 4 hours before activity clonazepam 0.5 mg tablet 0.5 mg PO QHS Qty: 28 2RF Rx Instructions: administer 30 minutes before bedtime risperidone 0.25 mg tablet 0.25 mg PO HS Qty: 90 3RF paroxetine HCl 40 mg tablet 40 mg PO BID Qty: 180 3RF aspirin 81 mg tablet,delayed release (DR/EC) 81 mg PO DAILY Qty: 90 4RF buspirone 15 mg tablet 15 mg PO BID Qty: 180 3RF Discharge Instructions Instructions: Back Pain (ED) Additional Instructions: increase your clonazepam to 1 mg at night take tylenol 650 mg every 6 hours as needed for pain apply lidoderm patches (over the counter) over the area of tenderness per pkg instruction return earlier with worsening pain, fever, or should you develop new or worsening complaints HPI General Date/Time Provider Initiated Documentation: 11/24/23 17:05. HPI Narrative: This 68-year-old male presents with report of lower left-sided back pain since Friday. He states it is worsened with movement. He denies history of similar symptoms in the past. He states the pain is worsened with movement. He denies any strength or sensation changes to pelvis. He denies any changes in bowel or bladder. Related Data Home Medications Medication Instructions Recorded Confirmed cholecalciferol (vitamin D3) 50 50 mcg PO DAILY #90 caps 10/17/22 11/24/23 mcg (2,000 unit) capsule metformin 500 mg tablet 500 mg PO BID #180 tab-caps 11/04/22 11/24/23 atorvastatin 40 mg tablet (Lipitor) 40 mg PO QPM #90 tabs 12/19/22 11/24/23 sildenafil 100 mg tablet 100 mg PO DAILY PRN sexual 06/20/23 11/24/23 activity #2 tabs clonazepam 0.5 mg tablet 0.5 mg PO QHS #28 tabs 09/04/23 11/24/23 risperidone 0.25 mg tablet 0.25 mg PO HS #90 tabs 09/24/23 11/24/23 paroxetine HCl 40 mg tablet 40 mg PO BID #180 tab-caps 09/29/23 11/24/23 aspirin 81 mg tablet,delayed 81 mg PO DAILY #90 tabs 10/08/23 11/24/23 release buspirone 15 mg tablet 15 mg PO BID fran #180 tabs 10/09/23 11/24/23 Previous Rx's Medication Instructions Recorded cholecalciferol (vitamin D3) 50 50 mcg PO DAILY #90 caps 10/17/22 mcg (2,000 unit) capsule metformin 500 mg tablet 500 mg PO BID #180 tab-caps 11/04/22 atorvastatin 40 mg tablet (Lipitor) 40 mg PO QPM #90 tabs 12/19/22 sildenafil 100 mg tablet 100 mg PO DAILY PRN sexual 06/20/23 activity #2 tabs clonazepam 0.5 mg tablet 0.5 mg PO QHS #28 tabs 09/04/23 risperidone 0.25 mg tablet 0.25 mg PO HS #90 tabs 09/24/23 paroxetine HCl 40 mg tablet 40 mg PO BID #180 tab-caps 09/29/23 aspirin 81 mg tablet,delayed 81 mg PO DAILY #90 tabs 10/08/23 release buspirone 15 mg tablet 15 mg PO BID fran #180 tabs 10/09/23 Allergies Allergy/AdvReac Type Severity Reaction Status Date / Time No Known Allergies Allergy Verified 11/24/23 16:48 General Stated Complaint: Nk/Back Pain ROMMEL: 3 Course Vital Signs Vital signs: Vital Signs Temperature 36.4 C 11/24/23 16:42 Pulse 71 11/24/23 16:42 Respiratory Rate 22 11/24/23 16:42 Blood Pressure 177/95 H 11/24/23 16:42 Pulse Oximetry 98 11/24/23 16:42 Temperature 36.4 C 11/24/23 16:42 Temperature Source Oral 11/24/23 16:42 Pulse 71 11/24/23 16:42 Respiratory Rate 22 11/24/23 16:42 Respiratory Effort Normal 11/24/23 16:53 Blood Pressure 177/95 H 11/24/23 16:42 Pulse Oximetry 98 11/24/23 16:42 Oxygen Delivery Method Room Air 11/24/23 16:42 Oxygen Flow Rate 0 11/24/23 16:42 Pain Level 6 11/24/23 16:42 Lab/Test Results Lab/Test Results: Laboratory Tests Range/Units 11/24/23 11/24/23 17:32 18:46 WBC (4.4-10.8) 10^3/uL 7.48 RBC (4.36-5.78) 10^6/uL 4.39 Hgb (13.5-17.5) g/dL 13.6 Hct (40.0-50.0) % 40.3 MCV (80-95) fL 92 MCH (27.0-33.0) pg 31.0 MCHC (32.0-36.0) % 33.7 RDW (11.8-14.1) % 12.5 Plt Count (130-400) 10^3/uL 228 MPV (8.0-11.0) fL 9.5 Immature Gran % 0.7 Neutrophils % 79.4 Lymphocytes % 12.6 Monocytes % 5.7 Eosinophils % 1.2 Basophils % 0.4 Nucleated RBC % (0.0-0.3) % 0.0 Absolute Neutrophils (1.2-6.7) 10^3/uL 5.94 Absolute Lymphocytes (1.2-3.4) 10^3/uL 0.94 L Absolute Monocytes (0.1-0.8) 10^3/uL 0.43 Absolute Eosinophils (0.0-0.7) 10^3/uL 0.09 Absolute Basophils (0.0-0.2) 10^3/uL 0.03 Sodium (136-145) mmol/L 137 Potassium (3.5-5.1) mmol/L 4.4 Chloride (98-107) mmol/L 101 Carbon Dioxide (21.0-32.0) mmol/L 25.9 Anion Gap (3-11) mmol/L 10.1 BUN (7-18) mg/dL 12 Creatinine (0.70-1.30) mg/dL 1.4 H Est GFR (CKD-EPI 2020) (mL/min/1.73m2) 55.43 Glucose (74-106) mg/dL 212 H Calcium (8.5-10.1) mg/dL 8.9 Total Bilirubin (0.2-1.0) mg/dL 0.4 AST (15-37) U/L 17 ALT (16-63) U/L 31 Alkaline Phosphatase (46-116) U/L 86 Total Protein (6.4-8.2) g/dL 7.2 Albumin (3.4-5.0) g/dL 4.0 Lipase (16-77) U/L 57 Urine Color (Yellow) Yellow Urine Clarity (Clear) Clear Urine pH (5-8) 6.0 Ur Specific [place] (1.005-1.025) 1.010 Urine Protein (Neg-Trace) mg/dL Negative Urine Ketones (Negative) mg/dL Negative Urine Blood (Negative) Trace-intact H Urine Nitrite (Negative) Negative Urine Bilirubin (Negative) Negative Urine Urobilinogen (Up to 0.2) mg/dL 0.2 Ur Leukocyte Esterase (Negative) Negative Urine RBC (0-2) HPF 0-2 Urine WBC (0-5) HPF 0-2 Ur Epithelial Cells (Negative) HPF Moderate Urine Crystals (Negative) HPF Negative Urine Bacteria (Negative) HPF Rare Urine Casts (Negative) LPF Negative Urine Mucus (Negative) Negative Ur Culture Indicated? No/Sq. Contamination Urine Glucose (Negative) mg/dL 250 H Medical Decision Making 68-year-old male presenting with left flank pain for the past 3 days, worsened with movement but present at rest No evidence of cauda equina syndrome, repeatable is reducible tenderness over left flank, no bruising noted, no anterior abdominal tenderness, no rebound or guarding, neurovascularly intact bilateral lower extremities, no midline back pain, negative Babinski bilaterally, DTRs intact bilateral lower extremities, labs are reassuring, consistent with patient's history of diabetes and renal disease CT does not show evidence of acute abnormality per radiology interpretation my review Urinalysis does not show evidence of infection Patient is encouraged to apply Lidoderm patches, take Tylenol, and to increase his clonazepam at night to 1 mg for the next several days as needed Return precautions were reviewed and patient expressed understanding Quality:SDOH Health Related Social Needs: No Data to Display PFSH All Active Problems (Updated 11/24/23 @ 19:21 by TREMAINE Delgadillo) Back pain (Acute) Diabetes mellitus (Chronic 06/03/12) no retinopathy -2015 no neuropathy Hyperlipidemia (Acute) Overweight (Acute) Obsessive compulsive disorder (Chronic) Parkinsonian syndrome (Paxil) Gout (Chronic) Vitamin D deficiency (Acute) Essential tremor (Acute) Parkinsonism (Acute) Likely secondary to risperidone use Gout (Chronic) 01/2022, uric acid-7.7 Anxiety (Chronic) 08/2021-chronic clonazepam use, drug contract with [facility] Essential hypertension (Acute) Chronic kidney disease, stage 3 (Acute) 11/2021, Cr-1.6 Medical History Acute respiratory failure with hypoxia COVID-19 Pneumonia due to severe acute respiratory syndrome coronavirus 2 (SARS-CoV-2) 2020, recovered without sequalae Surgical History History of colonoscopy (~02/2023) Family History Mother , age 73? Essential hypertension Diabetes Heart disease Hyperlipidemia Father , age 55? Melanoma Brother Hyperlipidemia Diabetes Maternal Grandfather No problems noted. Maternal Grandmother No problems noted. Paternal Grandmother No problems noted. Sister Diabetes Hyperlipidemia Paternal Grandfather No problems noted. Social History (Updated 06/12/23 @ 16:17 by Cynthia Paula) Smoking/Tobacco Use Status: Never Second Hand Exposure: Yes Smoking risk assessment performed?: Yes Alcohol Intake: current Alcohol Intake frequency: a few times a month Alcohol type: beer and wine Drug use: Never Substance use type: does not use Details: alcohol: t-10 Caregiver/Support person: No Household members: none Housing: house Communication Needs: None Do you need help understanding health information?: Never Pets and animals: No Sexually active: No Do you think of yourself as: straight/heterosexual Current gender identity: male What is your relationship status?: never How often do you talk on the phone with friends or family?: three or more times per week How often do you get together with friends or relatives?: three or more times per week How often do you attend scientologist or uatsdin services?: 1-3 times per year Do you belong to any clubs or organized social groups?: yes Panel score (0-1 are the most socially isolated patients): 2 What type of physical activity do you participate in: walking Duration: 60-90 minutes/day Frequency: 5-6 times per week Becka/Jehovah'S Witness: Sikhism Special becka needs: No Seatbelt use: sometimes Helmet use: Yes Helmet use: always Drive intox or ride w/intox substitute bus driver: No Do you feel safe at home: Yes Do you feel safe in your relationship?: Yes
== END 2023-11-24 19:35 | disposition home or self-care (01) ==
PROVIDERS: Emergency Provider Physician Assistant; PCP Nurse Practitioner Family
DX: M54.50 Low back pain, unspecified (principal); I12.9 Hypertensive chronic kidney disease with stage 1 through stage 4 chronic kidney disease, or unspecified chronic kidney disease; E11.22 Type 2 diabetes mellitus with diabetic chronic kidney disease; N18.30 Chronic kidney disease, stage 3 unspecified; G20.C Parkinsonism, unspecified; E78.5 Hyperlipidemia, unspecified; Z79.82 Long term (current) use of aspirin; Z79.84 Long term (current) use of oral hypoglycemic drugs
CPT/HCPCS: 36415; 80053; 83690; 99284; 74176; 81003; 81015; 85025

== ENCOUNTER → 2024-01-27 11:11 | Outpatient (BNVA) | payer MEDICARE, MEDICAID, SELFPAY | PROVIDERS: PCP Nurse Practitioner Family; Visit Provider Psychiatry & Neurology Neurology | DX: G20.C Parkinsonism, unspecified (principal); G25.0 Essential tremor | CPT/HCPCS: 99213 ==

== ENCOUNTER → 2024-03-09 14:33 | Outpatient (BNVA) | payer MEDICARE, MEDICAID, SELFPAY | PROVIDERS: PCP Nurse Practitioner Family; Referring Provider Nurse Practitioner Family; Visit Provider Psychiatry & Neurology Neurology | DX: G20.C Parkinsonism, unspecified (principal); G25.0 Essential tremor | CPT/HCPCS: 99213 ==

== ENCOUNTER 2024-06-16 15:57 | Outpatient (REF) | payer MEDICARE, MEDICAID, SELFPAY ==
[2024-06-16 15:06] LABS: COMMENT (LAB VIEW ONLY) 121.48 mg/dL; Microalb ug/mg Crea 5.5 ug/mg Cr
== END 2024-06-16 15:58 | disposition home or self-care (01) ==
LOC: LBN 15:57
PROVIDERS: PCP Nurse Practitioner Family; Visit Provider Nurse Practitioner Family
DX: E11.9 Type 2 diabetes mellitus without complications (principal); E78.5 Hyperlipidemia, unspecified; Z13.6 Encounter for screening for cardiovascular disorders; Z12.5 Encounter for screening for malignant neoplasm of prostate; Z23 Encounter for immunization; F41.9 Anxiety disorder, unspecified; G20.C Parkinsonism, unspecified
CPT/HCPCS: 82043; 82570

== ENCOUNTER 2024-07-12 02:37 | Outpatient (CLI) | payer MEDICARE, MEDICAID, SELFPAY ==
[2024-07-12 12:48] LABS: CREATININE 1.5 mg/dL (0.70-1.30); Calculated LDL 63 mg/dL (<100); Cholesterol 139 mg/dL (<200); Estimated GFR 51.03 (mL/min/1.73m2); HDL Cholesterol 42 mg/dL (40-60); Potassium 4.8 mmol/L (3.5-5.1); Triglyceride 173 mg/dL (<150)
[2024-07-12 23:05] LABS: PSA, Screening 0.7 ng/mL (<=4.5)
== END 2024-07-12 02:38 | disposition home or self-care (01) ==
LOC: LOS 02:37
PROVIDERS: PCP Nurse Practitioner Family; Visit Provider Nurse Practitioner Family
DX: E11.9 Type 2 diabetes mellitus without complications (principal); Z13.6 Encounter for screening for cardiovascular disorders; E78.5 Hyperlipidemia, unspecified; Z12.5 Encounter for screening for malignant neoplasm of prostate
CPT/HCPCS: 36415; 80061; 84153; 82565; 84132

== ENCOUNTER → 2025-03-08 15:18 | Outpatient (BNVA) | payer MEDICARE, MEDICAID, SELFPAY | PROVIDERS: PCP Nurse Practitioner Family; Visit Provider Psychiatry & Neurology Neurology | DX: G25.0 Essential tremor (principal); G20.C Parkinsonism, unspecified; E11.9 Type 2 diabetes mellitus without complications; E78.5 Hyperlipidemia, unspecified | CPT/HCPCS: 99214 ==

== ENCOUNTER 2025-05-13 00:33 | Emergency (ER) | payer MEDICARE, MEDICAID, SELFPAY ==
[2025-05-13 00:40] VITALS: BP 159/84; PULSE 63; RESP 18; TEMP 36.8; O2SAT 96
[2025-05-13 00:43] VITALS: BP 159/84; PULSE 63; RESP 18; O2SAT 97
[2025-05-13 01:52] LABS: Abs Immature Grans 0.03 10^3/uL (0.0-0.06); HCT 35.1 % (40.0-50.0); HGB 11.7 g/dL (13.5-17.5); Immature Grans % 0.5 %; MCH 31.2 pg (27.0-33.0); MCHC 33.3 % (32.0-36.0); MCV 94 fL (80-95); MPV 9.3 fL (8.0-11.0); Platelet Count 195 10^3/uL (130-400); RBC 3.75 10^6/uL (4.36-5.78); RDW 12.9 % (11.8-14.1); RDW-SD 44.4 fL; WBC 6.50 10^3/uL (4.4-10.8)
[2025-05-13] MEDS: Loperamide 2 MG CAP PO ×2 (01:55→03:23)
[2025-05-13 02:08] LABS: ALT 29 U/L (16-63); AST 18 U/L (15-37); Albumin 3.9 g/dL (3.4-5.0); Alkaline Phosphatase 92 U/L (46-116); Anion Gap 8.7 mmol/L (3-11); BUN 9 mg/dL (7-18); Bilirubin, Total 0.3 mg/dL (0.2-1.0); CO2 27.3 mmol/L (21.0-32.0); Calcium 8.8 mg/dL (8.5-10.1); Chloride 105 mmol/L (98-107); Estimated GFR 60.21 (mL/min/1.73m2); Glucose 91 mg/dL (74-106); Magnesium 1.8 mg/dL (1.8-2.4); Potassium 4.0 mmol/L (3.5-5.1); Sodium 141 mmol/L (136-145); Total Protein 6.8 g/dL (6.4-8.2)
--- NOTE | 2025-05-13 02:16 | ED.GENADUL_ITS ---
Discharge Plan Disposition Patient Disposition: Home Condition: Good Discharge Details Clinical Impression: Diarrhea Primary Care Provider: Bandar Guidry ED Provider: Yolis Marcos Home Meds and New Rx's Prescriptions: Continued metformin 500 mg tablet 500 mg PO BID Rx Instructions: Take 2 tablets in the morning. Take one tablet in the evening. propranolol 20 mg tablet 20 mg PO BID Qty: 180 3RF trazodone 50 mg tablet 50 mg PO QHS PRN (Reason: sleep) Qty: 90 3RF cholecalciferol (vitamin D3) 50 mcg (2,000 unit) capsule 50 mcg PO DAILY Qty: 90 4RF aspirin 81 mg tablet,delayed release (DR/EC) 81 mg PO DAILY Qty: 90 4RF buspirone 15 mg tablet 15 mg PO BID Qty: 180 3RF atorvastatin [Lipitor] 40 mg tablet 40 mg PO QPM Qty: 90 3RF paroxetine HCl 40 mg tablet 40 mg PO BID Qty: 180 3RF risperidone 0.25 mg tablet 0.25 mg PO HS Qty: 90 3RF sildenafil 100 mg tablet 100 mg PO DAILY PRN (Reason: sexual activity) Qty: 2 5RF Rx Instructions: administer 30 minutes to 4 hours before activity clonazepam 0.5 mg tablet 0.5 mg PO QHS Qty: 28 2RF Rx Instructions: administer 30 minutes before bedtime Discharge Instructions Instructions: Diarrhea, Adult ED Additional Instructions: You can take Imodium (loperamide) over the counter; follow the directions on the bottle. Return to the [facility] if you develop a fever, abdominal pain, or bloody stool and stop taking the immodium. Call your primary care doctor in the morning to schedule an appointment for within the next 72 hours to followup on your visit today. HPI General Mode of arrival: ambulatory . Date/Time Provider Initiated Documentation: 05/13/25 00:45 . Limitations to Documentation: no limitations . Information obtained by: patient . HPI Narrative: 69yo M with hx HTN, HLD, DM, CKD3, presenting with diarrhea. First had symptoms in March; these resolved. 4-5 days ago this recurred. He is have 3-4 loose stools a day. No blood. No abdominal pain. No fevers. He is continent of stool during the day but does not wake up at night to use the bathroom and has been waking in the morning with stool in his underwear. No nausea or vomiting. Spoke with his nurse friend at work this evening and they advised him to stop and 'get checked out' on the way home from work which is why he presents to the ED tonight. Otherwise in his usual state of health. Related Data Home Medications ?Medication ?Instructions ?Recorded ?Confirmed cholecalciferol (vitamin D3) 50 50 mcg PO DAILY #90 ca ps 10/17/22 05/13/25 mcg (2,000 unit) capsule aspirin 81 mg tablet,delayed 81 mg PO DAILY #90 tabs 0 10/08/23 05/13/25 release buspirone 15 mg tablet 15 mg PO BID fran #180 tabs 0 09/29/24 05/13/25 atorvastatin 40 mg tablet (Lipitor) 40 mg PO QPM #90 t abs 10/12/24 05/13/25 paroxetine HCl 40 mg tablet 40 mg PO BID #180 tab-caps 10/12/24 05/13/25 risperidone 0.25 mg tablet 0.25 mg PO HS #90 tabs 09/2305/13/25 trazodone 50 mg tablet 50 mg PO QHS PRN sleep #90 t abs 12/20/24 05/13/25 sildenafil 100 mg tablet 100 mg PO DAILY PRN sexual 0 01/14/25 05/13/25 activity #2 tabs metformin 500 mg tablet 500 mg PO BID 03/08/2505/13 clonazepam 0.5 mg tablet 0.5 mg PO QHS #28 tabs 04/2005/13/25 propranolol 20 mg tablet 20 mg PO BID #180 tabs 04/2605/13/25 Previous Rx's ?Medication ?Instructions ?Recorded cholecalciferol (vitamin D3) 50 50 mcg PO DAILY #90 ca ps 10/17/22 mcg (2,000 unit) capsule aspirin 81 mg tablet,delayed 81 mg PO DAILY #90 tabs 0 10/08/23 release buspirone 15 mg tablet 15 mg PO BID fran #180 tabs 0 09/29/24 atorvastatin 40 mg tablet (Lipitor) 40 mg PO QPM #90 t abs 10/12/24 paroxetine HCl 40 mg tablet 40 mg PO BID #180 tab-caps 10/12/24 risperidone 0.25 mg tablet 0.25 mg PO HS #90 tabs /2 10/16 trazodone 50 mg tablet 50 mg PO QHS PRN sleep #90 t abs 12/20/24 sildenafil 100 mg tablet 100 mg PO DAILY PRN sexual 0 01/14/25 activity #2 tabs clonazepam 0.5 mg tablet 0.5 mg PO QHS #28 tabs 04/20 propranolol 20 mg tablet 20 mg PO BID #180 tabs 04/26 Allergies Allergy/AdvReac Type Severity Reaction Status Date / Time No Known Allergies Allergy Verified 05/13/25 00:44 General Stated Complaint: Abd Prob ROMMEL: 3 Review of Systems Narrative: see HPI Exam Narrative Exam Narrative: General: Alert, well appearing, well nourished, in no acute distress. Head: Normocephalic, atraumatic Neck: Trachea midline, ?Neck supple. ENT: ?MMM.? Cardiac: ?RRR, no murmurs appreciated Resp: No respiratory distress. CTAB. Abd: ?Soft, non-distended, nontender : ?No suprapubic tenderness. Extremities: ?No deformities.? No peripheral edema. Neurologic: GCS 15. ? Moves all extremities freely against gravity Motor- 5/5 strength symmetric bilateral extremities Sensation- ?Intact to light touch and symmetric multiple dermatomes lower extremities. No saddle anesthesia Rectal: refused Course Vital Signs Vital signs: Vital Signs Temperature 36.8 C 05/13/25 00:40 Pulse 63 05/13/25 00:40 Respiratory Rate 18 05/13/25 00:40 Blood Pressure 159/84 H 05/13/25 00:40 Pulse Oximetry 96 05/13/25 00:40 Temperature 36.8 C 05/13/25 00:40 Temperature Source Oral 05/13/25 00:40 Pulse 63 05/13/25 00:43 Respiratory Rate 18 05/13/25 00:43 Blood Pressure 159/84 H 05/13/25 00:43 Pulse Oximetry 97 05/13/25 00:43 Oxygen Delivery Method Room Air 05/13/25 00:43 Oxygen Flow Rate 0 05/13/25 00:40 Pain Level 0 05/13/25 00:43 Lab/Test Results Lab/Test Results: Laboratory Tests Range/Units 05/13/25 01:40 WBC (4.4-10.8) 10^3/uL 6.50 RBC (4.36-5.78) 10^6/uL 3.75 L Hgb (13.5-17.5) g/dL 11.7 L Hct (40.0-50.0) % 35.1 L MCV (80-95) fL 94 MCH (27.0-33.0) pg 31.2 MCHC (32.0-36.0) % 33.3 RDW (11.8-14.1) % 12.9 Plt Count (130-400) 10^3/uL 195 MPV (8.0-11.0) fL 9.3 Immature Gran % % 0.5 Neutrophils % % 68.8 Lymphocytes % % 18.5 Monocytes % % 10.5 Eosinophils % % 1.4 Basophils % % 0.3 Nucleated RBC % (0.0-0.3) % 0.0 Absolute Neutrophils (1.2-6.7) 10^3/uL 4.48 Absolute Lymphocytes (1.2-3.4) 10^3/uL 1.20 Absolute Monocytes (0.1-0.8) 10^3/uL 0.68 Absolute Eosinophils (0.0-0.7) 10^3/uL 0.09 Absolute Basophils (0.0-0.2) 10^3/uL 0.02 Sodium (136-145) mmol/L 141 Potassium (3.5-5.1) mmol/L 4.0 Chloride (98-107) mmol/L 105 Carbon Dioxide (21.0-32.0) mmol/L 27.3 Anion Gap (3-11) mmol/L 8.7 BUN (7-18) mg/dL 9 Creatinine (0.70-1.30) mg/dL 1.3 Est GFR (CKD-EPI 2020) (mL/min/1.73m2) 60.21 Glucose (74-106) mg/dL 91 Calcium (8.5-10.1) mg/dL 8.8 Magnesium (1.8-2.4) mg/dL 1.8 Total Bilirubin (0.2-1.0) mg/dL 0.3 AST (15-37) U/L 18 ALT (16-63) U/L 29 Alkaline Phosphatase (46-116) U/L 92 Total Protein (6.4-8.2) g/dL 6.8 Albumin (3.4-5.0) g/dL 3.9 Medical Decision Making 69yo M with hx HTN, HLD, DM, CKD3, presenting with diarrhea for 4-5 days and incontinent of stool at night. Nonbloody, no fevers, abdominal pain, or N/V. Vital signs reassuring on arrival. Abdomen non-tender. Would not get CT ja[place] ging. Low suspicion for invasive infectious diarrhea. Normal neurologic exam, not concerned for cord compression/cauda equina. Will give immodium here and evaluate further with labs. Labs reviewed as below, CBC reassuring with no leukoctysois (mild anemia with Hg 11.7, I am not concerned for GI bleed), CMP with no electrolyte derangements, no hypomagenesium. On reassessment he remains well appearing with reassuring vital signs, non- tender abdomen. Had small soft stool in the ED, not watery, non bloody. Advised OTC immodium at home and PCP followup. Discharged home; discharge instructions and return precautions were reviewed with patient who verbalized understanding. All questions were answered and he is in full agreement with the plan. Lab Data Lab results reviewed: Yes I reviewed the patient's lab results. Labs: Laboratory Tests Range/Units 05/13/25 01:40 WBC (4.4-10.8) 10^3/uL 6.50 RBC (4.36-5.78) 10^6/uL 3.75 L Hgb (13.5-17.5) g/dL 11.7 L Hct (40.0-50.0) % 35.1 L MCV (80-95) fL 94 MCH (27.0-33.0) pg 31.2 MCHC (32.0-36.0) % 33.3 RDW (11.8-14.1) % 12.9 Plt Count (130-400) 10^3/uL 195 MPV (8.0-11.0) fL 9.3 Immature Gran % % 0.5 Neutrophils % % 68.8 Lymphocytes % % 18.5 Monocytes % % 10.5 Eosinophils % % 1.4 Basophils % % 0.3 Nucleated RBC % (0.0-0.3) % 0.0 Absolute Neutrophils (1.2-6.7) 10^3/uL 4.48 Absolute Lymphocytes (1.2-3.4) 10^3/uL 1.20 Absolute Monocytes (0.1-0.8) 10^3/uL 0.68 Absolute Eosinophils (0.0-0.7) 10^3/uL 0.09 Absolute Basophils (0.0-0.2) 10^3/uL 0.02 Sodium (136-145) mmol/L 141 Potassium (3.5-5.1) mmol/L 4.0 Chloride (98-107) mmol/L 105 Carbon Dioxide (21.0-32.0) mmol/L 27.3 Anion Gap (3-11) mmol/L 8.7 BUN (7-18) mg/dL 9 Creatinine (0.70-1.30) mg/dL 1.3 Est GFR (CKD-EPI 2020) (mL/min/1.73m2) 60.21 Glucose (74-106) mg/dL 91 Calcium (8.5-10.1) mg/dL 8.8 Magnesium (1.8-2.4) mg/dL 1.8 Total Bilirubin (0.2-1.0) mg/dL 0.3 AST (15-37) U/L 18 ALT (16-63) U/L 29 Alkaline Phosphatase (46-116) U/L 92 Total Protein (6.4-8.2) g/dL 6.8 Albumin (3.4-5.0) g/dL 3.9 Quality:SDOH Health Related Social Needs: Health related social needs details none PFSH All Active Problems (Updated 05/13/25 @ 03:12 by Yolis Marcos MD) Diarrhea (Acute) Sleep disturbance (Acute) Diabetes mellitus (Chronic 06/03/12) no retinopathy -2015 no neuropathy Hyperlipidemia (Acute) Overweight (Acute) Obsessive compulsive disorder (Chronic) Parkinsonian syndrome (Paxil) Gout (Chronic) Vitamin D deficiency (Acute) Essential tremor (Acute) Parkinsonism (Acute) Likely secondary to risperidone use Gout (Chronic) 01/2022, uric acid-7.7 Anxiety (Chronic) 08/2021-chronic clonazepam use, drug contract with [facility] Essential hypertension (Acute) Chronic kidney disease, stage 3 (Acute) 11/2021, Cr-1.6 Medical History Acute respiratory failure with hypoxia Pneumonia due to severe acute respiratory syndrome coronavirus 2 (SARS-CoV-2) 2020, recovered without sequalae COVID-19 Surgical History History of colonoscopy (~02/2023) Family History Mother , age 73? Essential hypertension Diabetes Heart disease Hyperlipidemia Father , age 55? Melanoma Brother Hyperlipidemia Diabetes Maternal Grandfather No problems noted. Maternal Grandmother No problems noted. Paternal Grandmother No problems noted. Sister Diabetes Hyperlipidemia Paternal Grandfather No problems noted. Social History Smoking/Tobacco Use Status: Never Second Hand Exposure: Yes Smoking risk assessment performed?: Yes Alcohol Intake: current Alcohol Intake frequency: a few times a month Alcohol type: beer Drug use: Never Substance use type: does not use Counseling given: No Details: alcohol: t-10 Caregiver/Support person: No Household members: none Housing: house Communication Needs: None Do you need help understanding health information?: Never Pets and animals: No Sexually active: No Do you think of yourself as: straight/heterosexual Current gender identity: male What is your relationship status?: never How often do you talk on the phone with friends or family?: three or more times per week How often do you get together with friends or relatives?: three or more times per week How often do you attend hindu or evangelical services?: 1-3 times per year Do you belong to any clubs or organized social groups?: yes Panel score (0-1 are the most socially isolated patients): 2 What type of physical activity do you participate in: walking Duration: 60-90 minutes/day Frequency: 5-6 times per week Becka/Pentecostalism: Rastafarian Special becka needs: No Seatbelt use: sometimes Helmet use: Yes Helmet use: always Drive intox or ride w/intox trencher driver: No Do you feel safe at home: Yes Do you feel safe in your relationship?: Yes
[2025-05-13 02:30] VITALS: BP 130/80; PULSE 60; RESP 18; O2SAT 95
[2025-05-13 03:23] VITALS: BP 137/63; PULSE 60; RESP 18; O2SAT 97
== END 2025-05-13 03:27 | disposition home or self-care (01) ==
PROVIDERS: Emergency Provider Student in an Organized Health Care Education/Training Program; PCP Nurse Practitioner Family
DX: R19.7 Diarrhea, unspecified (principal)
CPT/HCPCS: 99283; 99282; 80053; 83735; 85025

== ENCOUNTER 2025-05-28 15:22 | Outpatient (REF) | payer MEDICARE, MEDICAID, SELFPAY ==
[2025-05-29 21:06] LABS: Campylobacter PCR Negative (Negative); Shiga Toxin PCR Negative (Negative); Shigella/Enteroinvasive Ecoli Negative (Negative)
== END 2025-05-28 15:23 | disposition home or self-care (01) ==
LOC: LBN 15:22
PROVIDERS: PCP Nurse Practitioner Family; Visit Provider Nurse Practitioner Family
DX: R19.7 Diarrhea, unspecified (principal)
CPT/HCPCS: 87015; 87269; 87272; 87505

== ENCOUNTER 2025-06-28 01:35 | Outpatient (CLI) | payer MEDICARE, MEDICAID, SELFPAY ==
[2025-06-28 14:21] LABS: Anion Gap 11.2 mmol/L (3-11); BUN 22 mg/dL (7-18); CO2 24.8 mmol/L (21.0-32.0); Calcium 8.6 mg/dL (8.5-10.1); Calculated LDL 62 mg/dL (<100); Chloride 106 mmol/L (98-107); Cholesterol 125 mg/dL (<200); Estimated GFR 55.09 (mL/min/1.73m2); Glucose 101 mg/dL (74-106); HDL Cholesterol 44 mg/dL (>or=40); Potassium 4.2 mmol/L (3.5-5.1); Sodium 142 mmol/L (136-145); Triglyceride 97 mg/dL (<150)
[2025-06-29 01:52] LABS: PSA, Screening 1.2 ng/mL (<=4.5)
== END 2025-06-28 01:36 | disposition home or self-care (01) ==
LOC: LOS 01:35
PROVIDERS: PCP Nurse Practitioner Family; Referring Provider Nurse Practitioner Family; Visit Provider Nurse Practitioner Family
DX: Z12.5 Encounter for screening for malignant neoplasm of prostate (principal); Z13.1 Encounter for screening for diabetes mellitus; Z13.6 Encounter for screening for cardiovascular disorders
CPT/HCPCS: 36415; 80048; 80061; 84153

== ENCOUNTER 2025-09-04 13:38 | Emergency (ER) | payer MEDICARE, MEDICAID, SELFPAY ==
[2025-09-04] VITALS (33 sets, daily range): BP systolic 108–153; BP diastolic 61–82; PULSE 73–83; RESP 12–28; TEMP 36.9–38.2; O2SAT 92–97
--- NOTE | 2025-09-04 13:45 | RT.EKG_ITS ---
APPROVED REPORT Exam: Resting ECG Reason for Exam: fuzzy headed Patient Location: E HR:76 bpm ECG Measurements Heart Rate 76 AXIS SC 192 P 29 QRSd 94 QRS -53 QT 374 T 61 QTc 421 Conclusion Sinus rhythm...normal P axis, V-rate 60- 99 Left anterior fascicular block...axis(240,-40), init forces inf
--- NOTE | 2025-09-04 13:48 | W.ED.GENAD ---
Discharge Plan Disposition Patient Disposition: Home Condition: Good Discharge Details Clinical Impression: COVID-19 Primary Care Provider: Bandar Guidry ED Provider: Yaneth Shanks Home Meds and New Rx's Prescriptions: New Paxlovid 150 mg (10)- 100 mg (10) tablets,dose pack See Rx Instructions .ROUTE .COMPLEX Qty: 20 0RF Rx Instructions: take ONE 150 mg tablet of nirmatrelvir with ONE 100 mg tablet of ritonavir twice daily for 5 days Paxlovid 150 mg (10)- 100 mg (10) tablets,dose pack See Rx Instructions .ROUTE .COMPLEX Qty: 20 0RF Rx Instructions: orally per package directions Paxlovid 150 mg (10)- 100 mg (10) tablets,dose pack See Rx Instructions .ROUTE .COMPLEX Qty: 20 0RF Rx Instructions: orally per package directions Continued metformin 500 mg tablet 500 mg PO DAILY propranolol 20 mg tablet 20 mg PO BID Qty: 180 3RF cholecalciferol (vitamin D3) 50 mcg (2,000 unit) capsule 50 mcg PO DAILY Qty: 90 4RF buspirone 15 mg tablet 15 mg PO BID Qty: 180 3RF paroxetine HCl 40 mg tablet 40 mg PO BID Qty: 180 3RF risperidone 0.25 mg tablet 0.25 mg PO HS Qty: 90 3RF sildenafil 100 mg tablet 100 mg PO DAILY PRN (Reason: sexual activity) Qty: 2 5RF Rx Instructions: administer 30 minutes to 4 hours before activity Ozempic 0.25 mg or 0.5 mg (2 mg/3 mL) pen injector 0.5 mg subcut QWEEK Qty: 3 0RF Rx Instructions: for 4 weeks clonazepam 0.5 mg tablet 0.5 mg PO QHS Qty: 28 2RF Rx Instructions: administer 30 minutes before bedtime Held trazodone 50 mg tablet 50 mg PO QHS PRN (Reason: sleep) Qty: 90 3RF Hold Instructions: Resume on 09/10/25. hold while taking paxlovid atorvastatin [Lipitor] 40 mg tablet 40 mg PO QPM Qty: 90 3RF Hold Instructions: Resume on 09/10/25. hold while taking paxlovid Discharge Instructions Additional Instructions: Please call your primary care provider first thing in the morning to schedule follow-up appointment within the week. There is no evidence of pneumonia on your chest x-ray at this time, but it is very important that you monitor for symptoms that are consistent with pneumonia such as new fever, difficulty breathing, worsening cough, chest comfort with breathing, or nausea/vomiting. You are being prescribed Paxlovid, an antiviral to help prevent hospitalization and negative consequences of COVID-19 infection. Please do not take your Lipitor or trazodone while you are on this medication. Stay well-hydrated, drinking plenty of fluids throughout the day. I recommend electrolyte rich fluids such as Gatorlyte. You may also wish to add in gentle foods such as broths/soups if you do not have much of an appetite. Return to emergency care if you develop new episodes of dizziness/passing out, severe weakness, chest pain, difficulty breathing, are unable to stay hydrated, worsening symptoms despite treatment, or if you are very worried and need to be rechecked again immediately Stand Alone Forms: Portal Information Referrals: Bandar Guidry NP [Primary Care Provider, Medicine] HPI General Date/Time Provider Initiated Documentation: 09/04/25 13:41. HPI Narrative: Jorge is a 70-year-old male with history of HTN, HLD, DM, CKD stage III, OCD, anxiety who presents to the emergency department today for evaluation of positive COVID test, fuzzy headed feeling, and multiple falls. He reports symptoms started 4 days ago, reports chills, congestion, fuzzy headedness, mild headache, sore throat, cough, and anorexia/decreased appetite. He admits that he fell while urinating the other night because he felt lightheaded, landed in the bathtub, denies hitting his head. He also had multiple falls outside, attributed this to slipping on the snow/ice. Once again denies falls or extremity injury/neck pain/back pain. Denies recorded fevers, vision changes, chest pain, difficulty breathing, nausea/vomiting, abdominal pain, diarrhea or change in bladder function, blood in stool or urine, extremity weakness. Says he has been drinking plenty of water, but not eating much. Denies history of CHF/fluid overload. He is not on any anticoagulation. Multiple ill contacts have been sick with COVID, including family members. He tested positive with an at home test this morning. PMH significant for COVID-19 infection requiring prolonged hospitalization for COVID-pneumonia resulting in acute respiratory failure with hypoxia from 12/20/2020 until 12/27/2020 Related Data Home Medications ?Medication ?Instructions ?Recorded ?Confirmed cholecalciferol (vitamin D3) 50 50 mcg PO DAILY #90 caps 10/17/22 09/04/25 mcg (2,000 unit) capsule buspirone 15 mg tablet 15 mg PO BID fran #180 tabs 09/29/24 09/04/25 atorvastatin 40 mg tablet (Lipitor) 40 mg PO QPM #90 tabs 10/12/24 09/04/25 Held on 09/04/25. Instructions: Resume on 09/10/25. hold while taking paxlovid paroxetine HCl 40 mg tablet 40 mg PO BID #180 tab-caps 10/12/24 09/04/25 risperidone 0.25 mg tablet 0.25 mg PO HS #90 tabs 10/12/24 09/04/25 trazodone 50 mg tablet 50 mg PO QHS PRN sleep #90 tabs 12/20/24 09/04/25 Held on 09/04/25. Instructions: Resume on 09/10/25. hold while taking paxlovid sildenafil 100 mg tablet 100 mg PO DAILY PRN sexual 01/14/25 09/04/25 activity #2 tabs metformin 500 mg tablet 500 mg PO DAILY 03/08/25 09/04/25 propranolol 20 mg tablet 20 mg PO BID #180 tabs 04/26/25 09/04/25 semaglutide 0.25 mg or 0.5 mg (2 0.5 mg (0.736 mL) subcut QWEEK #3 08/08/25 09/04/25 mg/3 mL) subcutaneous pen injector mL (Ozempic) clonazepam 0.5 mg tablet 0.5 mg PO QHS #28 tabs 08/17/25 09/04/25 nirmatrelvir 150 mg (10)-ritonavir See Rx Instructions PO .COMPLEX 09/04/25 100 mg (10) tablets in a dose pack #20 tabs (Paxlovid) nirmatrelvir 150 mg (10)-ritonavir See Rx Instructions PO .COMPLEX 09/04/25 100 mg (10) tablets in a dose pack #20 tabs (Paxlovid) nirmatrelvir 150 mg (10)-ritonavir See Rx Instructions PO .COMPLEX 09/04/25 100 mg (10) tablets in a dose pack #20 tabs (Paxlovid) Previous Rx's ?Medication ?Instructions ?Recorded cholecalciferol (vitamin D3) 50 50 mcg PO DAILY #90 caps 10/17/22 mcg (2,000 unit) capsule buspirone 15 mg tablet 15 mg PO BID fran #180 tabs 09/29/24 atorvastatin 40 mg tablet (Lipitor) 40 mg PO QPM #90 tabs 10/12/24 Held on 09/04/25. Instructions: Resume on 09/10/25. hold while taking paxlovid paroxetine HCl 40 mg tablet 40 mg PO BID #180 tab-caps 10/12/24 risperidone 0.25 mg tablet 0.25 mg PO HS #90 tabs 10/12/24 trazodone 50 mg tablet 50 mg PO QHS PRN sleep #90 tabs 12/20/24 Held on 09/04/25. Instructions: Resume on 09/10/25. hold while taking paxlovid sildenafil 100 mg tablet 100 mg PO DAILY PRN sexual 01/14/25 activity #2 tabs propranolol 20 mg tablet 20 mg PO BID #180 tabs 04/26/25 semaglutide 0.25 mg or 0.5 mg (2 0.5 mg (0.736 mL) subcut QWEEK #3 08/08/25 mg/3 mL) subcutaneous pen injector mL (Ozempic) clonazepam 0.5 mg tablet 0.5 mg PO QHS #28 tabs 08/17/25 nirmatrelvir 150 mg (10)-ritonavir See Rx Instructions PO .COMPLEX 09/04/25 100 mg (10) tablets in a dose pack #20 tabs (Paxlovid) nirmatrelvir 150 mg (10)-ritonavir See Rx Instructions PO .COMPLEX 09/04/25 100 mg (10) tablets in a dose pack #20 tabs (Paxlovid) nirmatrelvir 150 mg (10)-ritonavir See Rx Instructions PO .COMPLEX 09/04/25 100 mg (10) tablets in a dose pack #20 tabs (Paxlovid) Allergies Allergy/AdvReac Type Severity Reaction Status Date / Time No Known Allergies Allergy Verified 09/04/25 13:48 General Stated Complaint: RespSymp ROMMEL: 3 Exam Const General: cooperative, healthy appearing, comfortable, no acute distress and well developed Nutritional Appearance: average body habitus Orientation: alert and oriented x3 HENNE Head: normal to inspection, atraumatic, no raccoon eyes and No periorbital ecchymosis Ears: hearing grossly normal bilaterally General nose exam: external nose normal Face and sinus: normal facial exam and face symmetric Mouth: lip normal, no audible dysphonia and other (slightly tacky mucus membranes) Resp Effort & Inspection: normal respiratory effort, able to speak in complete sentences, no audible wheezes and cough Auscultation: clear to auscultation bilaterally Cardio Rate: regular rate Rhythm: regular rhythm Skin General skin exam: no rashes or lesions noted Neuro General: patient alert, patient oriented x3, gait normal, tone normal, moves all extremities and no focal motor deficits Cranial Nerves: CN's II-XI intact bilaterally, PERRL, EOM intact bilaterally, no nystagmus, facial strength normal and tongue midline Speech: speech normal Gait: normal gait Motor: muscle tone normal throughout and strength 5/5 throughout Sensory Exam: no sensory deficits noted Extrem General: normal to inspection, full ROM, no pedal edema and no calf tenderness Course Vital Signs Vital signs: Vital Signs Temperature 37.8 C H 09/04/25 13:39 Pulse 83 09/04/25 13:39 Respiratory Rate 16 09/04/25 13:39 Blood Pressure 108/82 09/04/25 13:39 Temperature 37.8 C H 09/04/25 13:47 Temperature Source Tympanic 09/04/25 13:47 Pulse 83 09/04/25 13:47 Respiratory Rate 16 09/04/25 13:47 Blood Pressure 108/82 09/04/25 13:47 Blood Pressure Position Sitting 09/04/25 13:47 Oxygen Delivery Method Room Air 09/04/25 13:47 Oxygen Flow Rate 0 09/04/25 13:47 Medical Decision Making Jorge is a 70-year-old male with history of HTN, HLD, DM, CKD stage III, OCD, anxiety who presents to the emergency department today for evaluation of positive COVID test, fuzzy headed feeling, and multiple falls. He reports symptoms started 4 days ago, reports chills, congestion, fuzzy headedness, mild headache, sore throat, cough, and anorexia/decreased appetite. He admits that he fell while urinating the other night because he felt lightheaded, landed in the bathtub, denies hitting his head. He also had multiple falls outside, attributed this to slipping on the snow/ice. Once again denies falls or extremity injury/neck pain/back pain. Denies recorded fevers, vision changes, chest pain, difficulty breathing, nausea/vomiting, abdominal pain, diarrhea or change in bladder function, blood in stool or urine, extremity weakness. Says he has been drinking plenty of water, but not eating much. Denies history of CHF/fluid overload. He is not on any anticoagulation. Physical exam reassuring. Jorge is alert and oriented, no acute distress. Tacky mucous membranes. Easy work of breathing, lung sounds clear bilaterally. Normal heart sounds, regular rate and rhythm. Cranial nerves II through XII intact as tested, PERRL, EOMs intact, no nystagmus. Normal finger to finger, finger-nose, Romberg, gait, [id number]. He does report some mild lightheadedness with standing up. 5/5 muscle strength upper and lower extremities. Sensation grossly intact. DDx includes was not limited to: Viral illness/COVID-19, pneumonia, electrolyte imbalance, cardiac arrhythmia, dehydration/ANGELA. No focal neuro deficits or history of trauma concerning for intracranial pathology. I independently interpreted the following tests: EKG notable for sinus rhythm, rate 76, normal intervals, LAFB. No previous available for comparison. No acute abnormality noted on chest x-ray; CBC/CXR/sx do not correlate with PNA. CBC, CMP, magnesium all unremarkable. While in the emergency department Jorge received 1 L LR for rehydration, reports he is feeling much better, fuzzy headedness resolved. Overall workup today reassuring. History and presentation consistent with COVID-19 with mild dehydration. Will prescribe Paxlovid (paper prescription given as his preferred pharmacy did not have it in stock) Reviewed discharge instructions with patient, including use of Paxlovid, importance of follow-up with PCP, and red flags indicating need for return to emergency care Imaging Data Radiologic Study: Radiologist's impression: PROCEDURE INFORMATION: Exam: XR Chest Exam date and time: 09/04/2025 2:54 PM Age: 70 years old Clinical indication: Other: Cough, covid + TECHNIQUE: Imaging protocol: Radiologic exam of the chest. Views: 2 views. COMPARISON: CR XR PORTABLE CHEST AP 09/06/2022 2:49 AM FINDINGS: Lungs: The lungs are hyperaerated and hyperlucent suggesting underlying COPD. There are some coarse right mid and lower lung markings nearly unchanged compared to previous exam. Pleural spaces: Unremarkable. No pleural effusion. No pneumothorax. Heart/Mediastinum: Cardiomegaly. Bones/joints: Unremarkable. IMPRESSION: Nonacute right lung markings. There may be some minimal superimposed acute change consistent with early consolidation. Follow-up recommended, pending the patient's clinical course. Quality:SDOH Health Related Social Needs: Health related social needs inadequate housing food insecurity house/econ circumstance Health related social needs details none PFSH All Active Problems (Updated 09/04/25 @ 15:57 by Yaneth Cobb) COVID-19 (Acute) Sleep disturbance (Acute) Diabetes mellitus (Chronic 06/03/12) no retinopathy -2015 no neuropathy Hyperlipidemia (Acute) Overweight (Acute) Obsessive compulsive disorder (Chronic) Parkinsonian syndrome (Paxil) Vitamin D deficiency (Acute) Essential tremor (Acute) Parkinsonism (Acute) Likely secondary to risperidone use Gout (Chronic) 01/2022, uric acid-7.7 Anxiety (Chronic) 08/2021-chronic clonazepam use, drug contract with [facility] Essential hypertension (Acute) Chronic kidney disease, stage 3 (Acute) 11/2021, Cr-1.6 Medical History Acute respiratory failure with hypoxia Pneumonia due to severe acute respiratory syndrome coronavirus 2 (SARS-CoV-2) 2020, recovered without sequalae COVID-19 Surgical History History of colonoscopy (~02/2023) Family History Mother , age 73? Essential hypertension Diabetes Heart disease Hyperlipidemia Father , age 55? Melanoma Brother Hyperlipidemia Diabetes Maternal Grandfather No problems noted. Maternal Grandmother No problems noted. Paternal Grandmother No problems noted. Sister Diabetes Hyperlipidemia Paternal Grandfather No problems noted. Social History Smoking/Tobacco Use Status: Never Second Hand Exposure: Yes Smoking risk assessment performed?: Yes Alcohol Intake: current Alcohol Intake frequency: a few times a month Alcohol type: beer Drug use: Never Substance use type: does not use Counseling given: No Details: alcohol: t-10 Caregiver/Support person: No Household members: none Housing: house Communication Needs: None Do you need help understanding health information?: Never Pets and animals: No Sexually active: No Do you think of yourself as: straight/heterosexual Current gender identity: male What is your relationship status?: never How often do you talk on the phone with friends or family?: three or more times per week How often do you get together with friends or relatives?: three or more times per week How often do you attend synagogue or restoration services?: 1-3 times per year Do you belong to any clubs or organized social groups?: yes Panel score (0-1 are the most socially isolated patients): 2 What type of physical activity do you participate in: walking Duration: 60-90 minutes/day Frequency: 5-6 times per week Becka/Jehovah'S Witness: Yarsani Special becka needs: No Seatbelt use: sometimes Helmet use: Yes Helmet use: always Drive intox or ride w/intox cdl b driver: No Do you feel safe at home: Yes Do you feel safe in your relationship?: Yes
--- NOTE | 2025-09-04 14:30 | DI.RAD_ITS ---
Exam(s) XR CHEST 2V PA LATERAL EXAM: XR CHEST 2V PA LATERAL CLINICAL HISTORY: cough, + COVID TECHNIQUE: 2D digital imaging was performed. Two views. COMPARISON: CR,XR XR PORTABLE CHEST AP from 12/20/2020 CR,XR XR PORTABLE CHEST AP from 09/06/2022 FINDINGS: HEART: Normal size. Aorta: Not dilated. PULMONARY VASCULATURE: Normal. MEDIASTINUM: Unremarkable. LUNGS: Chronic interstitial changes greater at the lower lobes, right greater than left. No focal area of consolidation. PLEURAL SPACE: No pleural effusion or pneumothorax. BONE:Unremarkable for age. SOFT TISSUES: Unremarkable. IMPRESSION: Chronic interstitial markings greatest at the right lung base which appears unchanged. No acute infiltrates are visible. The preliminary [facility] report was reviewed. DATA REPOSITORY: RADIATION DOSE DELIVERED:
[2025-09-04 14:42] LABS: Abs Immature Grans 0.04 10^3/uL (0.0-0.06); HCT 36.7 % (40.0-50.0); HGB 12.4 g/dL (13.5-17.5); Immature Grans % 0.4 %; MCH 30.8 pg (27.0-33.0); MCHC 33.8 % (32.0-36.0); MCV 91 fL (80-95); MPV 9.6 fL (8.0-11.0); Platelet Count 167 10^3/uL (130-400); RBC 4.02 10^6/uL (4.36-5.78); RDW 12.6 % (11.8-14.1); RDW-SD 42.1 fL; WBC 10.58 10^3/uL (4.4-10.8)
[2025-09-04] MEDS: Lactated Ringers 1,000 ML 1000 ML IV (14:45)
--- NOTE | 2025-09-04 15:03 | DI.[facility]_ITS ---
PROCEDURE INFORMATION: Exam: XR Chest Exam date and time: 09/04/2025 2:54 PM Age: 70 years old Clinical indication: Other: Cough, covid + TECHNIQUE: Imaging protocol: Radiologic exam of the chest. Views: 2 views. COMPARISON: CR XR PORTABLE CHEST AP 09/06/2022 2:49 AM FINDINGS: Lungs: The lungs are hyperaerated and hyperlucent suggesting underlying COPD. There are some coarse right mid and lower lung markings nearly unchanged compared to previous exam. Pleural spaces: Unremarkable. No pleural effusion. No pneumothorax. Heart/Mediastinum: Cardiomegaly. Bones/joints: Unremarkable. IMPRESSION: Nonacute right lung markings. There may be some minimal superimposed acute change consistent with early consolidation. Follow-up recommended, pending the patient's clinical course. Dictated and Authenticated by: Ashley Mercer MD. Orderin Uvaldo Wolfe MD
[2025-09-04 15:40] LABS: Magnesium 1.6 mg/dL (1.6-2.6)
[2025-09-04 15:42] LABS: ALT 32 U/L (10-49); AST 36 U/L (<34); Albumin 4.3 g/dL (3.2-5.0); Alkaline Phosphatase 86 U/L (46-116); Anion Gap 8.4 mmol/L (3-11); BUN 13 mg/dL (9-23); Bilirubin, Total 0.4 mg/dL (0.2-1.2); CO2 23.6 mmol/L (20.0-31.0); Calcium 7.8 mg/dL (8.3-10.6); Chloride 104 mmol/L (98-107); Glucose 134 mg/dL (74-106); Potassium 3.8 mmol/L (3.5-5.1); Sodium 136 mmol/L (136-145); Total Protein 6.8 g/dL (5.7-8.2)
== END 2025-09-04 17:49 | disposition home or self-care (01) ==
PROVIDERS: Emergency Provider Nurse Practitioner Family; PCP Nurse Practitioner Family
DX: U07.1 COVID-19 (principal); I44.4 Left anterior fascicular block; E11.22 Type 2 diabetes mellitus with diabetic chronic kidney disease; I12.9 Hypertensive chronic kidney disease with stage 1 through stage 4 chronic kidney disease, or unspecified chronic kidney disease; N18.30 Chronic kidney disease, stage 3 unspecified; E78.5 Hyperlipidemia, unspecified; Z79.84 Long term (current) use of oral hypoglycemic drugs; Z79.85 Long-term (current) use of injectable non-insulin antidiabetic drugs
CPT/HCPCS: 36415; 80053; 87637; 93005; 99284; 71046; 83735; 85025; 93010